=== PATIENT | male | born 1945 | race Caucasian/White ===

== ENCOUNTER 2017-08-10 19:32 | Inpatient (IN) | payer MEDICARE ==
[2017-08-10 20:26] LABS: #Basophils 0.1 thou/uL (0.0-0.2); #Eosinphils 0.1 thou/uL (0.0-0.7); #Lymphocytes 0.8 thou/uL (1.20-3.40); #Monocytes 0.9 thou/uL (0.11-0.59); #Neutrophils 9.7 thou/uL (1.40-6.50); %Basophils 0.6 % (0.0-1.0); %Eosinophils 0.9 % (0.0-10.0); %Lymphocytes 7.2 % (21.0-51.0); %Monocytes 7.7 % (0.0-10.0); %Neutrophils 83.7 % (42.0-75.0); Hemoglobin 13.3 g/dL (14.0-18.0); Mean Corpuscular HGB CONC 34.6 g/dL (32.0-36.0); Mean Corpuscular Hemoglobin 33.7 pg (27.0-31.0); Mean Corpuscular Volume 97.3 fl (80.0-94.0); Platelet Count 172 thou/uL (130-400); RBC Distribution Width 12.1 % (11.5-14.5); Red Blood Cell (RBC) Count 3.95 mill/uL (4.70-6.10); White Blood Cell (WBC) Count 11.6 thou/uL (4.8-10.8)
[2017-08-10 20:28] LABS: Bilirubin Small (Negative); Blood, Urine Trace (Negative); Clarity Slightly Cloudy (Clear); Glucose, Urine (Dipstick) Negative (Negative); Leukocyte Negative (Negative); Nitrite Negative (Negative); Protein, Urine (Dipstick) 100 mg/dL (Neg-Trace); Specific Gravity, Urine 1.025 (1.005-1.030); Urobilinogen 0.2 mg/dL (0.2-1.0); pH, Urine 5.5 (5.0-9.0)
[2017-08-10 20:31] LABS: RBC/HPF 0-3 HPF (0-3); Squamous Epithelial 0-3 HPF (0-3); WBC/HPF 0-3 HPF (0-3)
[2017-08-10 20:43] LABS: ALT (SGPT) 28 U/L (8-55); AST (SGOT) 31 U/L (5-34); Albumin 3.8 g/dL (3.4-4.8); Alkaline Phosphatase 84 U/L (40-150); Anion Gap 14 mmol/L (10-20); BUN (Urea Nitrogen) 31 mg/dL (8.4-25.7); Bilirubin, Total 0.6 mg/dL (0.2-1.2); Calc. Creatinine Clearance 0 mL/min (70-130); Calcium 9.1 mg/dL (7.8-10.44); Carbon Dioxide 18 mmol/L (23-31); Chloride 108 mmol/L (98-107); Estimated GFR-MDRD 48; Globulin 3.8 g/dL (2.4-3.5); Glucose 114 mg/dL (83-110); Potassium 4.4 mmol/L (3.5-5.1); Protein, Total 7.6 g/dL (5.8-8.1); Sodium 136 mmol/L (136-145)
[2017-08-10 20:45] LABS: CKMB 0.7 ng/mL (0-6.6); Troponin I Less than 0.010 ng/mL (< 0.028)
--- NOTE | 2017-08-10 21:07 | RAD ---
CHEST TWO VIEWS: HISTORY: Cough. Dyspnea. COMPARISON: 07/20/2016 FINDINGS: Increased opacity in the lingula and left lower lobe. Stable cardiac silhouette. No pneumothorax or osseous abnormalities. No pleural effusion. IMPRESSION: Left lower lobe and lingular pneumonia. Continued surveillance is recommended. POS: PPP
[2017-08-10] MEDS ORDERED: Sodium Chloride 0.9% 100 ML ONE (21:30)
[2017-08-10] MEDS ORDERED: cefTRIAXone\\ROCEPHIN 2 GM VIAL ONE (21:30)
[2017-08-10] MEDS ORDERED: Acetaminophen 325 MG TAB PO PRN (22:34)
[2017-08-10] MEDS ORDERED: Ondansetron ODT 4 MG TAB SL PRN (22:34)
[2017-08-10] MEDS ORDERED: Ondansetron HCl/PF 4 MG/2 ML Vial IVP PRN (22:34)
[2017-08-10] MEDS ORDERED: Senokot 8.6 MG TAB PO PRN (23:38)
[2017-08-10] MEDS ORDERED: Guaifenesin DM 100-10/5 ML UDCUP PO PRN (23:38)
[2017-08-10] MEDS ORDERED: Bisacodyl 5 MG TAB PO PRN (23:38)
[2017-08-10] MEDS ORDERED: Bisacodyl 10 MG SUPP PR PRN (23:38)
[2017-08-10] MEDS ORDERED: PROVENTIL INHALER 6.7 G (200 INHALATIONS) INH SCH (23:45)
[2017-08-10 23:49] VITALS: BMI 33.9
[2017-08-10] MEDS ORDERED: Dextrose 5% in Water 1,000 ML IV PRN (23:50)
[2017-08-10] MEDS ORDERED: Dextrose 50% Abboject 50 ML SYRINGE SLOW IVP PRN (23:50)
[2017-08-10] MEDS ORDERED: HumaLOG 300 UNITS/3 ML VIAL SC PRN (23:50)
--- NOTE | 2017-08-11 00:14 | HP ---
PRIMARY CARE PHYSICIAN: Justen Salmeron M.D. [place] FACER: Jarret Morin M.D. CHIEF COMPLAINT: Fever. HISTORY OF PRESENT ILLNESS: This is a 72-year-old male with a known history of COPD, who presents with a chief complaint of fevers and chills over the last 2- 3 days, accompanied by a new cough that is grossly nonproductive. At the time of my evaluation, the patient has been transferred from [facility] to our inpatient floor. He reports feeling significantly improved and does not currently complain of any fever or chills. He still has an intermittent nonproductive cough. He denies any prior similar issues. Denies any known sick contacts. No recent changes to his home regimen. No recent smoke exposure either. REVIEW OF SYSTEMS: As per HPI. Constitutional: Subjective fevers and chills, no significant weight loss or gain in the last month. HEENT: No new headache, vision change, lightheadedness, or dizziness. Cardiovascular: No new chest pain, chest pressure, dyspnea with exertion, or easy fatigability. Respiratory : As per HPI, otherwise negative. Gastrointestinal: Denies any nausea or vomiting. Denies any recent issues with diarrhea or constipation. Reports a retained appetite. Genitourinary: Denies any dysuria or change in urinary quality, quantity, frequency, or odor. Musculoskeletal: Denies any recent new myalgias or arthralgias. He does have some chronic back pain that is intermittent. PAST MEDICAL HISTORY: As per above significant for, 1. COPD, prior tobacco use, but quit in 2006. 2. Hyperlipidemia. 3. Hypertension. 4. Prior history of prostate cancer, status post surgery. 5. Status post hernia repair. 6. Status post right ear surgery. HOME MEDICATIONS: As per EMR includes the following: Advair, Spiriva, atenolol , allopurinol, and vitamin D. ALLERGIES: No known drug allergies. FAMILY HISTORY: Denies any family history of lung cancer or recurrent pulmonary infections. SOCIAL HISTORY: The patient resides with his . Tobacco use as described above. Alcohol use, 5 drinks most days. Denies any illicit drug use. Denies any known history of withdrawal seizures or withdrawal in general. I discussed advanced care planning. The patient indicates his would be his medical decision maker if he is unable to make his own medical decisions. He wishes to be FULL CODE at this point in time. PHYSICAL EXAMINATION: GENERAL: The patient is awake, alert, appropriate, oriented x3, able to provide a reasonable history as described above. HEENT: Normocephalic and atraumatic. Moist mucous membranes, no posterior oropharyngeal erythema or exudate. Equal ocular motions are intact. CARDIOVASCULAR: S1, S2. No murmurs, rubs, or gallops. Pulses 2+ bilateral upper extremities. No pitting pedal edema. RESPIRATORY: Reasonable air movement. No wheezes, rales, or rhonchi. Diminished breath sounds throughout, but otherwise clear to auscultation. GASTROINTESTINAL: Positive bowel sounds. ABDOMEN: Soft, nontender to palpation. MUSCULOSKELETAL: Able to sit up in the bed without difficulty or assistance. LABORATORY DATA AND IMAGING: WBC 11.6, hemoglobin 13.3, hematocrit 38.5, platelets 172. Sodium 136, potassium 4.4, chloride 108, bicarbonate 18, BUN 31 , creatinine 1.43, glucose 114, lactic acid 0.1, calcium 9.1, total bilirubin 0.6, AST 31, ALT 28, alkaline phosphatase 87. Troponin less than 0.01. BNP natriuretic peptide 97.7, total protein 7.6, albumin 3.8. UA is significant for 100 protein, 15 of ketones, trace blood, small bilirubin. 08/10/2017, chest x-ray, impression: "Left lower lobe and lingular pneumonia. Continued surveillance is recommended." ASSESSMENT AND PLAN: A 72-year-old male presented with a chief complaint of fevers and chills. 1. Fevers and chills, likely related to systemic inflammatory response syndrome in the setting of pneumonia as noted on chest x-ray. The patient will be placed on empiric antibiotics for community-acquired pneumonia including ceftriaxone and azithromycin. This will be initially placed IV for the patient. Close monitoring as well. 2. History of chronic obstructive pulmonary disease without evidence of overt exacerbation. At this point in time, we will consult the patient's federal mediator. Supportive management including cough medications, antipyretics if needed, nebulizers if needed. Steroids oral, burst therapy x3 days for the patient with a sliding scale insulin if needed for medication-induced hyperglycemia. 3. Hypertension, stable. Continue home regimen. 4. Hyperlipidemia. Continue home regimen. Otherwise, stable. The patient is admitted on an inpatient basis. Thank you for asking me to care for the patient. Questions or concerns, contact me at [facility]. TE
[2017-08-11] MEDS: Ipratropium Bromide 2.5 ml Neb NEB SCH ×4 (01:00→19:12)
[2017-08-11] MEDS: Azithromycin 500 MG in Sodium Chloride 0.9% 250 ML 250 ML IVPB SCH (01:25)
[2017-08-11 04:51] LABS: Anion Gap 11 mmol/L (10-20); BUN (Urea Nitrogen) 29 mg/dL (8.4-25.7); Calc. Creatinine Clearance 66 mL/min (70-130); Calcium 8.9 mg/dL (7.8-10.44); Carbon Dioxide 19 mmol/L (23-31); Chloride 108 mmol/L (98-107); Estimated GFR-MDRD 53; Glucose 170 mg/dL (83-110); Potassium 4.8 mmol/L (3.5-5.1); Sodium 133 mmol/L (136-145)
[2017-08-11 04:58] LABS: #Lymphocytes 0.3 thou/uL (1.20-3.40); #Monocytes 0.1 thou/uL (0.11-0.59); #Neutrophils 9.4 thou/uL (1.40-6.50); %Eosinophils 0.1 % (0.0-10.0); %Lymphocytes 2.7 % (21.0-51.0); %Monocytes 1.2 % (0.0-10.0); Hemoglobin 12.6 g/dL (14.0-18.0); Mean Corpuscular HGB CONC 34.1 g/dL (32.0-36.0); Mean Corpuscular Hemoglobin 34.5 pg (27.0-31.0); Mean Platelet Volume 9.1 fL (7.4-10.4); Platelet Count 177 thou/uL (130-400); RBC Distribution Width 12.1 % (11.5-14.5); Red Blood Cell (RBC) Count 3.65 mill/uL (4.70-6.10); White Blood Cell (WBC) Count 9.8 thou/uL (4.8-10.8)
[2017-08-11] MEDS: Mometasone/Formoterol 120 PUFF INHALER INH SCH ×2 (06:29→19:15)
[2017-08-11] MEDS ORDERED: Sodium Chloride 0.65% Nasal 44 ML BOT EA NARE PRN (07:48)
[2017-08-11] MEDS ORDERED: HYDROcodone/Acetaminophen 5/325 mg Tablet PO PRN (07:48)
[2017-08-11] MEDS ORDERED: Eucerin (Mineral Oil/Petrolatum,White) 30 gm Jar TOP PRN (07:48)
[2017-08-11] MEDS ORDERED: Diabetic Tussin 200 MG/10 ML UDCUP PO PRN (07:48)
[2017-08-11] MEDS ORDERED: hydrALAZINE 20 MG/ML VIAL SLOW IVP PRN (07:48)
[2017-08-11] MEDS ORDERED: Chloraseptic Spray 180 ml Bottle PO PRN (07:48)
[2017-08-11] MEDS ORDERED: Artificial Tears 18 DROP/0.9 ML EA EYE PRN (07:48)
[2017-08-11] MEDS ORDERED: Mag-Al 1200 mg/1200 mg/30 ML UDCUP PO PRN (07:48)
[2017-08-11] MEDS ORDERED: Loratadine 10 MG TAB PO PRN (07:48)
[2017-08-11] MEDS ORDERED: Loperamide HCl 2 MG CAP PO PRN (07:48)
[2017-08-11] MEDS ORDERED: Milk Of Magnesia 30 ML UDCUP PO PRN (07:48)
[2017-08-11] MEDS ORDERED: Temazepam 15 MG CAP PO PRN (07:48)
[2017-08-11] MEDS: Tamsulosin HCl 0.4 MG CAP PO SCH (09:30)
[2017-08-11] MEDS: Atenolol 25 MG TAB PO SCH (09:31)
[2017-08-11] MEDS: Lisinopril 10 MG TAB PO SCH (09:31)
[2017-08-11] MEDS: predniSONE 20 MG TAB PO SCH (09:32)
[2017-08-11] MEDS: Colchicine 0.6 MG TAB PO SCH (09:33)
[2017-08-11] MEDS: Enoxaparin Sodium 30 MG/0.3 ML SYRINGE SC SCH (09:33)
[2017-08-11] MEDS: Saccharomyces boulardii 250 MG CAP PO SCH (10:03)
[2017-08-11] MEDS ORDERED: Albuterol Sulfate 2.5 mg/3 ml Neb NEB PRN (10:36)
--- NOTE | 2017-08-11 11:01 | PDOC.PN ---
- Subjective Encounter Start Date: 08/11/17 Encounter Start Time: 07:40 -: old records requested/rev Patient seen and examined for pneumonia. No new complaints. No overnight events - Objective Resuscitation Status: Resuscitation Status FULL:Full Resuscitation MAR Reviewed: Yes Vital Signs & Weight: Vital Signs (12 hours) Temp Pulse Resp BP BP Pulse Ox 08/11/17 09:31 73 08/11/17 07:36 97.4 F L 73 19 133/64 99 08/11/17 06:29 76 12 08/11/17 06:21 98 08/11/17 06:18 76 12 08/11/17 04:00 98.4 F 80 18 118/65 94 L 08/11/17 01:01 98 08/11/17 01:00 82 14 98 08/11/17 00:00 98.4 F 70 20 112/62 98 Weight Weight 206 lb I&O: 08/10/17 08/11/17 08/12/17 06:59 06:59 06:59 Intake Total 580 Output Total 600 Balance -20 Result Diagrams: 08/11/17 03:55 08/11/17 03:54 Additional Labs: Accuchecks 08/11/17 06:24 POC Glucose 162 H Radiology Reviewed by me: Yes EKG Reviewed by me: Yes (nsr) Phys Exam - Physical Examination Constitutional: NAD HEENT: PERRLA, moist MMs, sclera anicteric Neck: no JVD, supple Respiratory: no wheezing, no rales, no rhonchi Cardiovascular: RRR, no significant murmur, no rub Gastrointestinal: soft, non-tender, no distention, positive bowel sounds Musculoskeletal: no edema, pulses present Neurological: non-focal, normal sensation, moves all 4 limbs Psychiatric: normal affect, A&O x 3 Skin: no rash, normal turgor Dx/Plan (1) Acute kidney failure Status: Acute (2) Community acquired bacterial pneumonia Code(s): J15.9 - UNSPECIFIED BACTERIAL PNEUMONIA Status: Acute (3) Sepsis with acute organ dysfunction Code(s): A41.9 - SEPSIS, UNSPECIFIED ORGANISM; R65.20 - SEVERE SEPSIS WITHOUT SEPTIC SHOCK Status: Acute (4) BPH (benign prostatic hyperplasia) Code(s): N40.0 - BENIGN PROSTATIC HYPERPLASIA WITHOUT LOWER URINRY TRACT SYMP Status: Chronic (5) COPD (chronic obstructive pulmonary disease) Status: Chronic (6) Dyslipidemia Code(s): E78.5 - HYPERLIPIDEMIA, UNSPECIFIED Status: Chronic (7) GERD (gastroesophageal reflux disease) Code(s): K21.9 - GASTRO-ESOPHAGEAL REFLUX DISEASE WITHOUT ESOPHAGITIS Status: Chronic (8) Gout Code(s): M10.9 - GOUT, UNSPECIFIED Status: Chronic (9) Hypertension Code(s): I10 - ESSENTIAL (PRIMARY) HYPERTENSION Status: Chronic (10) Macrocytic anemia Code(s): D53.9 - NUTRITIONAL ANEMIA, UNSPECIFIED Status: Chronic (11) Obesity (BMI 30.0-34.9) Code(s): E66.9 - OBESITY, UNSPECIFIED Status: Chronic - Plan cont current plan of care, plan discussed w/ family, continue antibiotics * continue rocephin and azithromycin * pulmonary consulted * medication reviewed as below * symptomatic treatment. * overall stable Review of Systems - Review of Systems Eyes: negative: Pain, Vision Change, Conjunctivae Inflammation, Eyelid Inflammation, Redness, Other ENT: negative: Ear Pain, Ear Discharge, Nose Pain, Nose Discharge, Nose Congestion, Mouth Pain, Mouth Swelling, Throat Pain, Throat Swelling, Other Respiratory: negative: Cough, Dry, Shortness of Breath, Hemoptysis, SOB with Excertion, Pleuritic Pain, Sputum, Wheezing Cardiovascular: negative: chest pain, palpitations, orthopnea, paroxysmal nocturnal dyspnea, edema, light headedness, other Gastrointestinal: negative: Nausea, Vomiting, Abdominal Pain, Diarrhea, Constipation, Melena, Hematochezia, Other Genitourinary: negative: Dysuria, Frequency, Incontinence, Hematuria, Retention , Other Musculoskeletal: negative: Neck Pain, Shoulder Pain, Arm Pain, Back Pain, Hand Pain, Leg Pain, Foot Pain, Other Skin: negative: Rash, Lesions, Derek, Bruising, Other - Medications/Allergies Allergies/Adverse Reactions: Allergies Allergy/AdvReac Type Severity Reaction Status Date / Time No Known Allergies Allergy Verified 08/10/17 22:58 Medications: Current Medications Hydrocodone Bitart/Acetaminophen ([place] 5/325) 1 tab PO Q4H PRN PRN Reason: Moderate Pain (4-6) Al Hydroxide/Mg Hydroxide (Maalox) 15 ml PO Q4H PRN PRN Reason: Heartburn or Indigestion Albuterol Sulfate (Ventolin) 2.5 mg NEB [id number] PRN PRN Reason: Wheezing Albuterol/Ipratropium (Duoneb) 3 ml NEB Q4H PRN PRN Reason: SOB &/or Wheezing Allopurinol (Zyloprim) 300 mg PO HS [facility] Artificial Tears (Tears Naturale) 0 drop EA EYE PRN PRN PRN Reason: Dry Eyes Aspirin (Ecotrin) 81 mg PO HS [facility] Atenolol (Tenormin) 12.5 mg PO DAILY [facility] Last Admin: 08/11/17 09:31 Dose: 12.5 mg Bisacodyl (Dulcolax) 10 mg PO DAILYPRN PRN PRN Reason: Constipation Bisacodyl (Dulcolax) 10 mg UT Q24H PRN PRN Reason: Constipation Cholecalciferol (Vitamin D3) 3,000 units PO DAILY [facility] Last Admin: 08/11/17 09:32 Dose: 3,000 units Colchicine (Colcrys) 0.6 mg PO DAILY [facility] Last Admin: 08/11/17 09:33 Dose: 0.6 mg Dextrose/Water (Dextrose 50%) 25 gm SLOW IVP PRN PRN PRN Reason: Hypoglycemia Enoxaparin Sodium (Lovenox) 30 mg SC 0900 [facility] Last Admin: 08/11/17 09:33 Dose: 30 mg Glucagon (Glucagon) 1 mg IM PRN PRN PRN Reason: Hypoglycemia Guaifenesin (Robitussin Sf) 200 mg PO Q4H PRN PRN Reason: Cough Guaifenesin (Mucinex) 600 mg PO Q12HR [facility] Guaifenesin/Dextromethorphan (Robitussin Dm) 15 ml PO Q4H PRN PRN Reason: Cough Hydralazine HCl (Apresoline) 10 mg SLOW IVP Q4H PRN PRN Reason: Systolic BP > 180 Azithromycin 500 mg/ Sodium (Chloride) 250 mls @ 250 mls/hr IVPB 2359 [facility] Last Admin: 08/11/17 01:25 Dose: 250 mls Ceftriaxone Sodium 1 gm/ (Sodium Chloride) 100 mls @ 200 mls/hr IVPB 2100 [facility] Dextrose/Water (D5w) 1,000 mls @ 0 mls/hr IV .Q0M PRN; As Directed PRN Reason: Hypoglycemia Insulin Human Lispro (Humalog) 0 units SC .MODERATE SLIDING SC PRN PRN Reason: Moderate Correctional Scale Ipratropium [place] (Atrovent) 2.5 ml NEB [id number] [facility] Last Admin: 08/11/17 06:18 Dose: 2.5 ml Lisinopril (Zestril) 10 mg PO DAILY [facility] Last Admin: 08/11/17 09:31 Dose: 10 mg Loperamide HCl (Imodium) 2 mg PO PRN PRN PRN Reason: Diarrhea/Loose Stools Loratadine (Claritin) 10 mg PO DAILYPRN PRN PRN Reason: Sinus Symptoms Magnesium Hydroxide (Milk Of Magnesium) 30 ml PO DAILYPRN PRN PRN Reason: Constipation Mineral Oil/White Petrolatum (Eucerin Cream) 0 gm TOP BIDPRN PRN PRN Reason: Dry Skin Mometasone Furoate/Formoterol Fumar (Dulera 200 Mcg/5 Mcg Inhaler) 2 puff INH BID-RT [facility] Last Admin: 08/11/17 06:29 Dose: 2 puff Pantoprazole Sodium (Protonix) 40 mg PO DAILY [facility] Last Admin: 08/11/17 09:31 Dose: 40 mg Phenol (Chloraseptic [place] 180 Ml Bot) 0 ml PO PRN PRN PRN Reason: Sore Throat Prednisone (Prednisone) 40 mg PO QA-[facility] Stop: 08/14/17 08:01 Last Admin: 08/11/17 09:32 Dose: 40 mg Rosuvastatin Calcium (Crestor) 5 mg PO [facility] Saccharomyces Boulardii (Florastor) 250 mg PO DAILY [facility] Last Admin: 08/11/17 10:03 Dose: 250 mg Senna (Senokot) 2 tab PO HSPRN PRN PRN Reason: Constipation Sodium Chloride ([place] Nasal [place] 0.65%) 0 ml EA NARE QIDPRN PRN PRN Reason: Nasal Congestion Sodium Chloride (Flush - Normal Saline) 10 ml IVF Q12HR [facility] Last Admin: 08/11/17 09:34 Dose: 10 ml Sodium Chloride (Flush - Normal Saline) 10 ml IVF PRN PRN PRN Reason: Saline Flush Tamsulosin HCl (Flomax) 0.4 mg PO DAILY [facility] Last Admin: 08/11/17 09:30 Dose: 0.4 mg Temazepam (Restoril) 15 mg PO HSPRN PRN PRN Reason: Insomnia
[2017-08-11] MEDS: guaiFENesin ER 600 MG TAB PO SCH (20:54)
[2017-08-11] MEDS ORDERED: cefTRIAXone\\ROCEPHIN 1 GM in Sodium Chloride 0.9% 100 ML IVPB SCH (21:00)
[2017-08-11] MEDS ORDERED: Rosuvastatin 5 MG TAB PO SCH (21:00)
[2017-08-11] MEDS ORDERED: Allopurinol 300 MG TAB PO SCH (21:00)
[2017-08-11] MEDS ORDERED: Aspirin 81 mg Enteric Coated Tablet PO SCH (21:00)
[2017-08-12] MEDS: Azithromycin 500 MG in Sodium Chloride 0.9% 250 ML 250 ML IVPB SCH (00:18)
[2017-08-12 00:59] LABS: Legionella Urinary Ag Negative (Negative); Strep pneumo Urine Ag NEGATIVE (NEGATIVE)
--- NOTE | 2017-08-12 01:00 | CON ---
DATE OF CONSULTATION: 08/11/2017 SERVICE: Pulmonary Medicine. REASON FOR CONSULTATION: Pneumonia. HISTORY OF PRESENT ILLNESS: The patient is a 72-year-old white male with past medical history significant for some COPD. He is not oxygen dependent. 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 He was in his usual state of health until . [place] He started feeling bad that evening. That being said, he went fishing on evening and Saturday morning. He felt lousy on Saturday with high fevers and chills. He had increasing cough which he typically does not have. When he came back on Saturday, he felt increasingly worse. He presented to the emergency department and was discovered to have a left lower lobe pneumonia. He was put on appropriate antibiotics, and has had a significant improvement in symptoms. He currently denies any fevers, chills, nausea, vomiting, shortness of breath, or chest discomfort. He is now coughing up brown sputum. He is feeling much better compared his presentation. He was having some high temperatures, shaking, night sweats. He is not currently having any of these things. PAST MEDICAL HISTORY: 1. COPD. 2. History of tobacco abuse. 3. Dyslipidemia. 4. Hypertension. 5. History of prostate cancer, status post surgery. PAST SURGICAL HISTORY: 1. Prostatectomy. 2. Herniorrhaphy. 3. Right ear surgery. ALLERGIES: No known drug allergies. MEDICATIONS: List of his inpatient medications were reviewed. Multiple small updates were made. FAMILY HISTORY: Noncontributory. SOCIAL HISTORY: The patient lives in this area with his . He has a greater than a [id number] history of smoking, but quit in 2006. He uses 5 alcoholic drinks on most days of the week. He denies any street drugs. 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 REVIEW OF SYSTEMS: General, head, ears, eyes, nose, throat, cardiovascular, respiratory, GI, , musculoskeletal, neurologic, and skin is negative except as mentioned in the HPI. PHYSICAL EXAMINATION: VITAL SIGNS: Afebrile, pulse 87, blood pressure 149/79, respirations 20, saturation 98% on room air. GENERAL: The patient awake, alert, in no apparent distress. LUNGS: Excellent air entry. There is no prolonged expiratory phase, wheezing, rhonchi, or crackles. HEART: Normal rate, regular. ABDOMEN: Soft, nontender, nondistended. Bowel sounds are positive. MUSCULOSKELETAL: No cyanosis or clubbing. No pitting in the bilateral lower extremities. NEUROLOGIC: Grossly nonfocal. LABORATORY DATA: WBC 9.8, hemoglobin 12.6, platelets 177,000. Creatinine 1.32 and down trending. Basic metabolic profile is otherwise unremarkable. Urinalysis is negative. Respiratory culture, urine culture negative to date. IMAGING: Chest x-ray demonstrates a left lower lobe infiltrate. There is an anterior cardiac space and flattening of the diaphragm, consistent with his known history of obstructive lung disease. ASSESSMENT: 1. Chronic obstructive pulmonary disease with acute exacerbation. 2. Community-acquired pneumonia. 3. Alcohol abuse. PLAN: The patient has cleared his fever profile. As such, we will convert him over to oral antibiotics. When his blood cultures are negative at 48 hours, he can be considered for transition out of the hospital. Pulmonary Critical Care will continue to follow. He will require a 5-7 day course of antibiotic therapy. He will need to follow up with Dr. Morin in the outpatient setting with a preclinic chest x-ray in roughly 6 weeks. 70 minutes have been devoted to this patient in various activities. I personally reviewed all imaging studies and laboratory data noted within this document. For fifty percent of this time, I was interacting with the patient at the bedside or coordinating care with the care team. For the remainder of the time I was immediately available to the patient in the hospital unit. TE
[2017-08-12] MEDS: Ipratropium Bromide 2.5 ml Neb NEB SCH ×3 (01:13→12:49)
[2017-08-12 05:23] LABS: #Lymphocytes 0.7 thou/uL (1.20-3.40); #Monocytes 0.7 thou/uL (0.11-0.59); #Neutrophils 11.6 thou/uL (1.40-6.50); %Basophils 0.1 % (0.0-1.0); %Eosinophils 0.1 % (0.0-10.0); %Lymphocytes 5.1 % (21.0-51.0); %Monocytes 5.5 % (0.0-10.0); %Neutrophils 89.2 % (42.0-75.0); Hemoglobin 12.2 g/dL (14.0-18.0); Mean Corpuscular HGB CONC 33.4 g/dL (32.0-36.0); Mean Corpuscular Hemoglobin 33.5 pg (27.0-31.0); Mean Platelet Volume 9.3 fL (7.4-10.4); Platelet Count 219 thou/uL (130-400); RBC Distribution Width 12.1 % (11.5-14.5); Red Blood Cell (RBC) Count 3.64 mill/uL (4.70-6.10)
[2017-08-12 05:46] LABS: Anion Gap 11 mmol/L (10-20); BUN (Urea Nitrogen) 36 mg/dL (8.4-25.7); Calc. Creatinine Clearance 69 mL/min (70-130); Carbon Dioxide 20 mmol/L (23-31); Chloride 109 mmol/L (98-107); Estimated GFR-MDRD 56; Glucose 124 mg/dL (83-110); Potassium 4.7 mmol/L (3.5-5.1); Sodium 135 mmol/L (136-145)
[2017-08-12] MEDS: Mometasone/Formoterol 120 PUFF INHALER INH SCH (06:11)
[2017-08-12] MEDS: Lisinopril 10 MG TAB PO SCH (09:25)
[2017-08-12] MEDS: predniSONE 20 MG TAB PO SCH (09:25)
[2017-08-12] MEDS: Saccharomyces boulardii 250 MG CAP PO SCH (09:25)
[2017-08-12] MEDS: Tamsulosin HCl 0.4 MG CAP PO SCH (09:26)
[2017-08-12] MEDS: Colchicine 0.6 MG TAB PO SCH (09:26)
[2017-08-12] MEDS: guaiFENesin ER 600 MG TAB PO SCH (09:26)
[2017-08-12] MEDS: Atenolol 25 MG TAB PO SCH (09:26)
[2017-08-12] MEDS: Enoxaparin Sodium 30 MG/0.3 ML SYRINGE SC SCH (09:28)
--- NOTE | 2017-08-12 09:57 | PDOC.PN ---
- Subjective Encounter Start Date: 08/12/17 Encounter Start Time: 07:50 Patient seen and examined for pneumonia. No new complaints. No overnight events - Objective Resuscitation Status: Resuscitation Status FULL:Full Resuscitation MAR Reviewed: Yes Vital Signs & Weight: Vital Signs (12 hours) Temp Pulse Resp BP Pulse Ox 08/12/17 07:44 97.6 F 79 18 96 08/12/17 07:16 97.6 F 79 18 144/81 H 97 08/12/17 06:11 84 12 08/12/17 06:06 91 L 08/12/17 06:03 84 16 08/12/17 03:04 98.0 F 73 17 157/81 H 92 L 08/12/17 01:13 81 14 93 L 08/12/17 00:00 97.9 F 78 15 165/84 H 94 L Weight Weight 206 lb I&O: 08/11/17 08/12/17 08/13/17 06:59 06:59 06:59 Intake Total 580 1550 Output Total 600 1100 Balance -20 450 Result Diagrams: 08/12/17 03:45 08/12/17 03:45 Additional Labs: Accuchecks 08/12/17 08/11/17 08/11/17 06:38 20:44 16:43 POC Glucose 137 H 161 H 155 H 08/11/17 11:41 POC Glucose 183 H EKG Reviewed by me: Yes (nsr) Phys Exam - Physical Examination Constitutional: NAD HEENT: PERRLA, moist MMs, sclera anicteric Neck: no nodes, no JVD, supple Respiratory: no wheezing, no rales, no rhonchi Cardiovascular: RRR, no significant murmur, no rub Gastrointestinal: soft, non-tender, no distention, positive bowel sounds Musculoskeletal: no edema, pulses present Neurological: non-focal, normal sensation, moves all 4 limbs Psychiatric: normal affect, A&O x 3 Skin: no rash, normal turgor Dx/Plan (1) Acute kidney failure Status: Resolved (2) Community acquired bacterial pneumonia Code(s): J15.9 - UNSPECIFIED BACTERIAL PNEUMONIA Status: Acute (3) Sepsis with acute organ dysfunction Code(s): A41.9 - SEPSIS, UNSPECIFIED ORGANISM; R65.20 - SEVERE SEPSIS WITHOUT SEPTIC SHOCK Status: Acute (4) BPH (benign prostatic hyperplasia) Code(s): N40.0 - BENIGN PROSTATIC HYPERPLASIA WITHOUT LOWER URINRY TRACT SYMP Status: Chronic (5) COPD (chronic obstructive pulmonary disease) Status: Chronic (6) Dyslipidemia Code(s): E78.5 - HYPERLIPIDEMIA, UNSPECIFIED Status: Chronic (7) GERD (gastroesophageal reflux disease) Code(s): K21.9 - GASTRO-ESOPHAGEAL REFLUX DISEASE WITHOUT ESOPHAGITIS Status: Chronic (8) Gout Code(s): M10.9 - GOUT, UNSPECIFIED Status: Chronic (9) Hypertension Code(s): I10 - ESSENTIAL (PRIMARY) HYPERTENSION Status: Chronic (10) Macrocytic anemia Code(s): D53.9 - NUTRITIONAL ANEMIA, UNSPECIFIED Status: Chronic (11) Obesity (BMI 30.0-34.9) Code(s): E66.9 - OBESITY, UNSPECIFIED Status: Chronic - Plan cont current plan of care, continue antibiotics * medication reviewed as below * symptomatic treatment * omnicef on discharge * mucinex and prednisone on discharge * pulmonary following * discharge when pulmonary OK. Review of Systems - Review of Systems Eyes: negative: Pain, Vision Change, Conjunctivae Inflammation, Eyelid Inflammation, Redness, Other ENT: negative: Ear Pain, Ear Discharge, Nose Pain, Nose Discharge, Nose Congestion, Mouth Pain, Mouth Swelling, Throat Pain, Throat Swelling, Other Respiratory: Cough. negative: Dry, Shortness of Breath, Hemoptysis, SOB with Excertion, Pleuritic Pain, Sputum, Wheezing Cardiovascular: negative: chest pain, palpitations, orthopnea, paroxysmal nocturnal dyspnea, edema, light headedness, other Gastrointestinal: negative: Nausea, Vomiting, Abdominal Pain, Diarrhea, Constipation, Melena, Hematochezia, Other Genitourinary: negative: Dysuria, Frequency, Incontinence, Hematuria, Retention , Other Musculoskeletal: negative: Neck Pain, Shoulder Pain, Arm Pain, Back Pain, Hand Pain, Leg Pain, Foot Pain, Other Skin: negative: Rash, Lesions, Derek, Bruising, Other - Medications/Allergies Allergies/Adverse Reactions: Allergies Allergy/AdvReac Type Severity Reaction Status Date / Time No Known Allergies Allergy Verified 08/10/17 22:58 Medications: Current Medications Hydrocodone Bitart/Acetaminophen ([place] 5/325) 1 tab PO Q4H PRN PRN Reason: Moderate Pain (4-6) Al Hydroxide/Mg Hydroxide (Maalox) 15 ml PO Q4H PRN PRN Reason: Heartburn or Indigestion Albuterol Sulfate (Ventolin) 2.5 mg NEB [id number] PRN PRN Reason: Wheezing Albuterol/Ipratropium (Duoneb) 3 ml NEB Q4H PRN PRN Reason: SOB &/or Wheezing Allopurinol (Zyloprim) 300 mg PO HS [facility] Last Admin: 08/11/17 20:54 Dose: 300 mg Aspirin (Ecotrin) 81 mg PO HS [facility] Last Admin: 08/11/17 20:54 Dose: 81 mg Atenolol (Tenormin) 12.5 mg PO DAILY [facility] Last Admin: 08/12/17 09:26 Dose: 12.5 mg Bisacodyl (Dulcolax) 10 mg PO DAILYPRN PRN PRN Reason: Constipation Bisacodyl (Dulcolax) 10 mg ND Q24H PRN PRN Reason: Constipation Cholecalciferol (Vitamin D3) 3,000 units PO DAILY [facility] Last Admin: 08/12/17 09:26 Dose: 3,000 units Colchicine (Colcrys) 0.6 mg PO DAILY [facility] Last Admin: 08/12/17 09:26 Dose: 0.6 mg Dextrose/Water (Dextrose 50%) 25 gm SLOW IVP PRN PRN PRN Reason: Hypoglycemia Enoxaparin Sodium (Lovenox) 30 mg SC 0900 [facility] Last Admin: 08/12/17 09:28 Dose: 30 mg Glucagon (Glucagon) 1 mg IM PRN PRN PRN Reason: Hypoglycemia Guaifenesin (Robitussin Sf) 200 mg PO Q4H PRN PRN Reason: Cough Guaifenesin (Mucinex) 600 mg PO Q12HR [facility] Last Admin: 08/12/17 09:26 Dose: 600 mg Hydralazine HCl (Apresoline) 10 mg SLOW IVP Q4H PRN PRN Reason: Systolic BP > 180 Azithromycin 500 mg/ Sodium (Chloride) 250 mls @ 250 mls/hr IVPB 2359 [facility] Last Admin: 08/12/17 00:18 Dose: 250 mls Ceftriaxone Sodium 1 gm/ (Sodium Chloride) 100 mls @ 200 mls/hr IVPB 2100 [facility] Last Admin: 08/11/17 20:54 Dose: 100 mls Dextrose/Water (D5w) 1,000 mls @ 0 mls/hr IV .Q0M PRN; As Directed PRN Reason: Hypoglycemia Insulin Human Lispro (Humalog) 0 units SC .MODERATE SLIDING SC PRN PRN Reason: Moderate Correctional Scale Ipratropium [place] (Atrovent) 2.5 ml NEB [id number] [facility] Last Admin: 08/12/17 06:03 Dose: 2.5 ml Lisinopril (Zestril) 10 mg PO DAILY [facility] Last Admin: 08/12/17 09:25 Dose: 10 mg Loperamide HCl (Imodium) 2 mg PO PRN PRN PRN Reason: Diarrhea/Loose Stools Loratadine (Claritin) 10 mg PO DAILYPRN PRN PRN Reason: Sinus Symptoms Magnesium Hydroxide (Milk Of Magnesium) 30 ml PO DAILYPRN PRN PRN Reason: Constipation Mineral Oil/White Petrolatum (Eucerin Cream) 0 gm TOP BIDPRN PRN PRN Reason: Dry Skin Mometasone Furoate/Formoterol Fumar (Dulera 200 Mcg/5 Mcg Inhaler) 2 puff INH BID-RT [facility] Last Admin: 08/12/17 06:11 Dose: 2 puff Pantoprazole Sodium (Protonix) 40 mg PO DAILY [facility] Last Admin: 08/12/17 09:26 Dose: 40 mg Phenol (Chloraseptic [place] 180 Ml Bot) 0 ml PO PRN PRN PRN Reason: Sore Throat Prednisone (Prednisone) 40 mg PO QAM-[facility] Stop: 08/14/17 08:01 Last Admin: 08/12/17 09:25 Dose: 40 mg Rosuvastatin Calcium (Crestor) 5 mg PO HS [facility] Last Admin: 08/11/17 20:54 Dose: 5 mg Saccharomyces Boulardii (Florastor) 250 mg PO DAILY [facility] Last Admin: 08/12/17 09:25 Dose: 250 mg Senna (Senokot) 2 tab PO HSPRN PRN PRN Reason: Constipation Sodium Chloride ([place] Nasal [place] 0.65%) 0 ml EA NARE QIDPRN PRN PRN Reason: Nasal Congestion Sodium Chloride (Flush - Normal Saline) 10 ml IVF Q12HR [facility] Last Admin: 08/12/17 09:27 Dose: 10 ml Sodium Chloride (Flush - Normal Saline) 10 ml IVF PRN PRN PRN Reason: Saline Flush Tamsulosin HCl (Flomax) 0.4 mg PO DAILY [facility] Last Admin: 08/12/17 09:26 Dose: 0.4 mg Temazepam (Restoril) 15 mg PO HSPRN PRN PRN Reason: Insomnia
--- NOTE | 2017-08-12 10:55 | DIS ---
PRIMARY CARE PHYSICIAN: Dr. Justen Salmeron DATE OF ADMISSION: 08/10/2017 DATE OF DISCHARGE: 08/12/2017 DISCHARGE DISPOSITION: Home. PRIMARY DISCHARGE DIAGNOSES: 1. Community-acquired bacterial pneumonia. 2. Sepsis with acute organ dysfunction. 3. Acute kidney failure. SECONDARY DISCHARGE DIAGNOSES: Obesity with BMI 33, macrocytic anemia, hypertension, gout, gastroeso phageal reflux disease, COPD, benign enlargement of prostate. PRIMARY PROCEDURES/OPERATIONS: None. RADIOLOGICAL INVESTIGATION: Chest x-ray on admission showed left lower lobe and lingular pneumonia. SIGNIFICANT LABORATORY DATA: WBC 13.0, hemoglobin 12.2, platelet 219. Sodium 135, potassium 4.7, BU N 36, creatinine 1.25, calcium 9.0. LFT normal. Cardiac enzymes negative. BNP 97.7. Urinalysis un remarkable. Urine legionella antigen and Streptococcal pneumonia antigen negative. Culture negative . Urine culture negative. DISCHARGE MEDICATIONS: Omnicef 300 mg p.o. b.i.d. for 7 days, prednisone 20 mg p.o. daily for 5 days , Mucinex 600 mg twice daily for 7 days, Florastor 250 mg p.o. daily for 7 days. Continue following medications: Ventolin inhaler as directed, allopurinol 300 mg p.o. at bedtime, as pirin 81 mg p.o. at bedtime, atenolol 12.5 mg p.o. daily, vitamin D3 3,000 unit p.o. daily, colchicin e 0.6 mg p.o. daily, Advair 1 inhalation b.i.d., Prevacid 30 mg p.o. daily, lisinopril 10 mg p.o. kendall ly, Crestor 5 mg p.o. at bedtime, Flomax 0.4 mg p.o. daily, Spiriva 18 mcg inhalation daily. CONTRAINDICATIONS: None. CODE STATUS: FULL CODE. INPATIENT CONSULTANTS: Dr. Cole was consulted while in hospital. TEST RESULTS PENDING ON DISCHARGE: None. ALLERGIES: No known drug allergy. DISCHARGE PLAN: Post hospital, the patient will follow up with Dr. Morin in 2 weeks for repeat follow up chest x-ray. The patient will make appointment with primary care physician in 1 week. HOSPITAL COURSE: A 72-year-old male with the above-mentioned medical problems who was admitted by Dr Ovi Laurent. Please see her H&P for further details. The patient was admitted for cough, shortness of br eath, and fever. In the emergency room, he had chest x-ray which showed left lower lobe and lingular pneumonia. The patient was admitted to telemetry floor. He was treated with Rocephin and azithromy shamika. Pulmonary team was consulted. The patient had dramatic improvement with IV antibiotic therapy. He was also given prednisone and that is why next day, his WBC count was elevated. His culture re mained negative. He was clinically dehydrated when he came to emergency room, but his renal function improved with IV fluid. He was meeting sepsis criteria with acute organ dysfunction that is also re solved. At this point, the patient is on room air. He is ambulatory, tolerating p.o. well. He expr essed his wish to go home. As long as Dr. Cole sees this patient and if he clears him for discharge, then we will consider di scharging him later on today. All new medication prescriptions will be sent to his pharmacy. The patient is seen and examined at bedside today. Please see my progress note from today for furthe r details.
[2017-08-12 11:57] VITALS: BP 158/87; TEMP 98.9
--- NOTE | 2017-08-12 12:22 | PRG ---
DATE OF SERVICE: 08/12/2017 SUBJECTIVE: Mr. Jose Luis Chiu has no complaints. He is on room air. He is in no distress. He sti ll has cough as expected and says he feels great. OBJECTIVE: VITAL SIGNS: His blood pressure is 144/81, oximetry is 97, respiratory rate 18, heart rate 79. He i s afebrile. LUNGS: He has crackles at his left base. HEART: Regular rhythm. IMPRESSION: 1. Chronic obstructive pulmonary disease exacerbation. 2. Pneumonia. It is clinically significantly improved. I think it is reasonable to discharge him f or close outpatient follow up with Dr. Morin. He should probably have another week of antibiotics and a tapering dose of prednisone. He was not wheezing when I examined him.
== END 2017-08-12 15:54 | disposition home or self-care (01) | DRG 871 ==
LOC: SCSER 19:32 → 2NO 21:09
PROVIDERS: ADMIT Internal Medicine; ATTEND Internal Medicine
DX: A41.9 Sepsis, unspecified organism (principal); J15.9 Unspecified bacterial pneumonia; J44.0 Chronic obstructive pulmonary disease with (acute) lower respiratory infection; N17.9 Acute kidney failure, unspecified; J44.1 Chronic obstructive pulmonary disease with (acute) exacerbation; R65.20 Severe sepsis without septic shock; Z87.891 Personal history of nicotine dependence; E78.5 Hyperlipidemia, unspecified; I10 Essential (primary) hypertension; Z85.46 Personal history of malignant neoplasm of prostate; E66.9 Obesity, unspecified; Z68.33 Body mass index [BMI] 33.0-33.9, adult; D53.9 Nutritional anemia, unspecified; K21.9 Gastro-esophageal reflux disease without esophagitis; N40.0 Benign prostatic hyperplasia without lower urinary tract symptoms; M10.9 Gout, unspecified; E86.0 Dehydration
CPT/HCPCS: 36415; 36416; 71046; 80048; 80053; 81003; 81015; 82553; 83605; 83880; 84484; 85025; 87040; 87070; 87086; 87205; 87899; 93005; 94640; 94664; 94760; 96361; 96365; 96375; A4216; J0456; J0696; J1650; J7050; J7506; J7620; J7644

== ENCOUNTER 2017-08-15 11:03 | Outpatient (CLI) | payer MEDICARE ==
--- NOTE | 2017-08-15 12:27 | RAD ---
CHEST 2 VIEWS: Date: 08/15/17 HISTORY: Follow-up pneumonia. COMPARISON: 08/10/17. FINDINGS: Heart size within normal limits. The lingular infiltrate shows improvement as compared to the prior e xamination. IMPRESSION: Improving left basilar lung changes which appear to represent a resolving lingular infiltrate. POS: [facility]
== END 2017-08-15 11:04 | disposition home or self-care (01) ==
LOC: RAD 11:03
PROVIDERS: ATTEND Internal Medicine Pulmonary Disease
DX: R06.00 Dyspnea, unspecified (principal)
CPT/HCPCS: 71046

== ENCOUNTER 2018-03-25 06:25 | Inpatient (IN) | payer MEDICARE ==
[2018-03-25] MEDS ORDERED: methylPREDNISolone Sod Succ/PF 125 MG/2 ML VIAL ONE ×2 (06:53→17:07)
[2018-03-25] MEDS ORDERED: Water For Inject, Bacteriostat 30 ML ONE ×2 (06:53→17:08)
[2018-03-25 07:06] LABS: #Basophils 0.1 thou/uL (0.0-0.2); #Lymphocytes 0.9 thou/uL (1.20-3.40); #Monocytes 0.7 thou/uL (0.11-0.59); #Neutrophils 13.6 thou/uL (1.40-6.50); %Basophils 0.6 % (0.0-1.0); %Eosinophils 0.1 % (0.0-10.0); %Lymphocytes 6.1 % (21.0-51.0); %Monocytes 4.8 % (0.0-10.0); %Neutrophils 88.4 % (42.0-75.0); Hemoglobin 13.2 g/dL (14.0-18.0); Mean Corpuscular HGB CONC 34.3 g/dL (32.0-36.0); Mean Corpuscular Hemoglobin 32.9 pg (27.0-31.0); Mean Corpuscular Volume 95.9 fL (78.0-98.0); Mean Platelet Volume 7.8 fL (7.4-10.4); Platelet Count 247 thou/uL (130-400); RBC Distribution Width 11.9 % (11.5-14.5); Red Blood Cell (RBC) Count 4.03 mill/uL (4.70-6.10); White Blood Cell (WBC) Count 15.4 thou/uL (4.8-10.8)
[2018-03-25 07:23] LABS: ALT (SGPT) 36 U/L (8-55); AST (SGOT) 40 U/L (5-34); Albumin 3.5 g/dL (3.4-4.8); Alkaline Phosphatase 109 U/L (40-150); Anion Gap 12 mmol/L (10-20); BUN (Urea Nitrogen) 23 mg/dL (8.4-25.7); Bilirubin, Total 0.3 mg/dL (0.2-1.2); CK (CPK) 58 U/L (30-200); Calc. Creatinine Clearance 0 mL/min (70-130); Calcium 8.6 mg/dL (7.8-10.44); Carbon Dioxide 20 mmol/L (23-31); Chloride 106 mmol/L (98-107); Estimated GFR-MDRD 63; Globulin 3.9 g/dL (2.4-3.5); Glucose 115 mg/dL (83-110); Potassium 4.4 mmol/L (3.5-5.1); Protein, Total 7.4 g/dL (5.8-8.1); Sodium 134 mmol/L (136-145)
[2018-03-25 07:24] LABS: CKMB 0.6 ng/mL (0-6.6)
[2018-03-25] MEDS ORDERED: Azithromycin 500 MG VIAL ONE (07:53)
[2018-03-25] MEDS ORDERED: cefTRIAXone\\ROCEPHIN 1 GM VIAL ONE (07:53)
[2018-03-25] MEDS ORDERED: Magnesium Sulfate 2 GM/NS 0.9% 50 ML BAG ONE (07:53)
--- NOTE | 2018-03-25 08:05 | RAD ---
TWO VIEWS CHEST: Date: 03-25-18 Comparison: 09-20-17 History: Cough with chills. FINDINGS: No pneumothorax is seen. Increased linear interstitial density noted throughout both lungs suggesting underlying emphysematous change. There is linear interstitial density in the mid right lung zone/right lung base, new. Lungs are hyper inflated on the lateral examination. No focal consolidation. IMPRESSION: Interstitial prominence with pulmonary hyperinflation suggesting COPD in the proper clinical setting. Superimposed asymmetric increased linear interstitial density noted in mid right lung zone and right lung base suspicious for right basilar pneumonia. Recommend follow up imaging following treatment to document resolution. POS: [facility]
[2018-03-25] MEDS ORDERED: Ondansetron PF 4 MG/2 ML Vial IVP PRN ×2 (18:27→20:04)
[2018-03-25] MEDS ORDERED: Acetaminophen 325 MG TAB PO PRN ×2 (18:27→20:04)
[2018-03-25] MEDS ORDERED: Ondansetron ODT 4 MG TAB SL PRN (18:27)
[2018-03-25] MEDS ORDERED: Albuterol Sulfate 2.5 mg/3 ml Neb NEB PRN (20:04)
[2018-03-25] MEDS ORDERED: Acetaminophen 650 MG Suppository PR PRN (20:04)
[2018-03-25] MEDS ORDERED: Senokot S 8.6-50 MG TAB PO PRN (20:04)
[2018-03-25] MEDS ORDERED: Ondansetron ODT 4 MG TAB PO PRN (20:04)
[2018-03-25 20:17] VITALS: BMI 32.1
[2018-03-25] MEDS ORDERED: Famotidine 20 MG TAB PO SCH (21:00)
[2018-03-25] MEDS: Allopurinol 300 MG TAB PO SCH (21:00)
[2018-03-25] MEDS: Rosuvastatin 5 MG TAB PO SCH (21:00)
[2018-03-25] MEDS: Aspirin 81 mg Enteric Coated Tablet PO SCH (21:00)
[2018-03-26] MEDS: Ipratropium Bromide 2.5 ml Neb NEB SCH ×3 (00:22→14:35)
--- NOTE | 2018-03-26 02:03 | HP ---
PRIMARY CARE PHYSICIAN: Justen Salmeron MD CHIEF COMPLAINT: Shortness of breath and cough. HISTORY OF PRESENT ILLNESS: This is a 72-year-old white male with a known history of COPD, not on home oxygen. He developed cough, fevers, and chills starting last week. These symptoms came and went and got a little better over the weekend, but then on yesterday they got significantly worse. He went to his primary care doctor's office and was given a prescription for amoxicillin. He took it last night, but got worse last night with increasing chills and some shortness of breath especially with ambulation, so today he went into the emergency room at the insistence of his . There, he was found to be hypoxic in the 80s after ambulation, up to the low 90s if he remained at rest. Chest x-ray showed pneumonia, also sound to have an elevated white blood cell count, so he is being admitted for pneumonia and COPD exacerbation. PAST MEDICAL HISTORY: 1. COPD. 2. Hyperlipidemia. 3. Hypertension. 4. Gout. 5. Previous prostate cancer, status post resection. PAST SURGICAL HISTORY: 1. Prostate resection. 2. Hernia repair. 3. Right ear surgery. SOCIAL HISTORY: The patient lives with his . He used to smoke heavily until about 10 to [address] Morin established with him and told him that he would within 5 years if he did not stop, so he stopped smoking and started exercising daily. He drinks at least 2 glasses of wine daily. No illicit drug use. FAMILY HISTORY: Mom had cancer of the jaw. Dad of an aortic aneurysm rupture. ALLERGIES: NO KNOWN DRUG ALLERGIES. CURRENT MEDICATIONS: 1. Albuterol inhaler as needed. 2. Advair 250 twice a day. 3. Rosuvastatin 5 mg daily. 4. Tamsulosin 0.4 mg daily. 5. Lisinopril 10 mg daily. 6. Prevacid 30 mg daily. 7. Colchicine 0.6 mg daily. 8. Atenolol 12.5 mg daily. 9. Aspirin 81 mg daily. 10. Allopurinol 300 mg at night. REVIEW OF SYSTEMS: CONSTITUTIONAL: See HPI. EYES: No double vision or new blurring of vision. ENT: He has not had a lot of congestion or drainage. No sore throat. CARDIOVASCULAR: No chest pain. No palpitations or racing heart. PULMONARY: See HPI. GASTROINTESTINAL: No abdominal pain. No nausea or vomiting. No diarrhea or constipation. He did have a little bit of diarrhea last week, that has resolved. GENITOURINARY: No dysuria or hematuria. MUSCULOSKELETAL: No muscle aches or joint pains. SKIN: He has a little dry patch on his left quiñones, but otherwise no rashes or skin changes. NEUROLOGIC: No numbness, tingling, or focal weakness. PHYSICAL EXAMINATION: VITAL SIGNS: Blood pressure 163/82, pulse 83, respirations 16, O2 saturation 93% on 2 L, temperature 97.4. He was tachycardic on his initial presentation to the emergency room of 103. His temperature never got up to 100 there. GENERAL: This is a well-developed, well-nourished white male, in no acute respiratory distress, on oxygen. HEENT: Pupils are equal, round, and reactive to light. Oropharynx clear without lesions, erythema, or exudate. NECK: Supple. No lymphadenopathy. No thyroid nodules or enlargement. No JVD. HEART: Regular rate and rhythm. No murmurs, rubs, or gallops. LUNGS: He has some tight breath sounds bilaterally with occasional wheezes. No rhonchi or other focal findings. ABDOMEN: Soft and nontender to palpation. Normoactive bowel sounds. No hepatosplenomegaly or other masses. EXTREMITIES: No clubbing, cyanosis, or edema. SKIN: He has a little dry patch on his left leg, but no significant rashes. NEUROLOGIC: Intact strength and reflexes in all extremities, and no facial droop. LABORATORY DATA: CBC with a white blood cell count of 15,000, 88% neutrophils. The remainder was unremarkable. Complete metabolic panel is notable for a sodium of 134, carbon dioxide of 20, glucose of 115, AST of 40. The remainder was normal. Troponin was negative. CK-MB was negative. Lactic acid was normal. Chest x-ray, I did review the chest x-ray along with the radiologist's report. It does show COPD changes, but also a superimposed asymmetric increased linear interstitial density in the right mid lung and lung base concerning for right basilar pneumonia. ASSESSMENT: 1. Acute bacterial pneumonia. The patient has been started on Rocephin and azithromycin. We will continue that here. 2. Acute exacerbation of chronic obstructive pulmonary disease with hypoxia. We will give the patient supplemental oxygen as needed. We will give him albuterol inhaler along with Spiriva and Advair in the hospital. I will also consult his mediation commissioner, Dr. Morin. 3. Hypertension. We will resume patient's home blood pressure medications. 4. Gout. We will resume patient's home medications. 5. Gastroesophageal reflux disease. We will resume patient's proton pump inhibitor. 6. Deep venous thrombosis prophylaxis. We will put the patient on Lovenox and sequential compression devices while in bed. CODE STATUS: I discussed this with the patient. He is a full code. Should he be incapacitated, his would be his medical decision maker, her name is Codie Chiu. Job ID: [id number]
[2018-03-26] MEDS ORDERED: Mometasone/Formoterol 120 PUFF INHALER INH SCH (06:30)
--- NOTE | 2018-03-26 07:45 | PDOC.PN ---
- Subjective Encounter Start Date: 03/26/18 Encounter Start Time: 10:15 Subjective: Patient feeling better today. Doesn't need Oxygen unless he gets up to -: ambulate. Cough improved. No fever. - Objective Resuscitation Status - Order Detail: 03/25/18 20:00 Resuscitation Status Routine Resuscitation Status: FULL: Full Resuscitation Discussed with: Sheryl GOLDMAN Reviewed: Yes Vital Signs & Weight: Vital Signs (12 hours) Temp Pulse Resp BP BP Pulse Ox 03/26/18 04:00 97.8 F 85 20 120/60 100 03/26/18 00:22 77 16 94 L 03/26/18 00:04 97.6 F 84 16 142/79 H 93 L 03/25/18 20:04 98.3 F 93 18 132/46 L 92 L Weight Weight 205 lb 0.478 oz Result Diagrams: 03/26/18 10:23 03/26/18 10:23 Phys Exam - Physical Examination Constitutional: NAD HEENT: moist MMs Respiratory: no wheezing, no rales, no rhonchi Cardiovascular: RRR, no significant murmur Gastrointestinal: soft, non-tender, positive bowel sounds Neurological: non-focal, moves all 4 limbs Psychiatric: normal affect, A&O x 3 Dx/Plan (1) Community acquired bacterial pneumonia Code(s): J15.9 - UNSPECIFIED BACTERIAL PNEUMONIA Status: Acute (2) COPD exacerbation Code(s): J44.1 - CHRONIC OBSTRUCTIVE PULMONARY DISEASE W (ACUTE) EXACERBATION Status: Acute Comment: Nebs, steroids, abx (3) Dyslipidemia Code(s): E78.5 - HYPERLIPIDEMIA, UNSPECIFIED Status: Chronic (4) GERD (gastroesophageal reflux disease) Code(s): K21.9 - GASTRO-ESOPHAGEAL REFLUX DISEASE WITHOUT ESOPHAGITIS Status: Chronic (5) Gout Code(s): M10.9 - GOUT, UNSPECIFIED Status: Chronic (6) Hypertension Code(s): I10 - ESSENTIAL (PRIMARY) HYPERTENSION Status: Chronic - Plan cont current plan of care, continue antibiotics, respiratory therapy, out of bed /ambulate, DVT proph w/lovenox, DVT proph w/SCDs * . - Discharge Day Encounter end time: 10:30
[2018-03-26] MEDS ORDERED: Azithromycin 500 MG in Sodium Chloride 0.9% 250 ML 250 ML IVPB SCH (08:00)
[2018-03-26] MEDS: cefTRIAXone\\ROCEPHIN 1 GM in Sodium Chloride 0.9% 100 ML IVPB SCH (08:14)
[2018-03-26] MEDS: Atenolol 25 MG TAB PO SCH (08:16)
[2018-03-26] MEDS: Colchicine 0.6 MG TAB PO SCH (08:16)
[2018-03-26] MEDS: Tamsulosin HCl 0.4 MG CAP PO SCH (08:19)
[2018-03-26] MEDS: Lisinopril 20 MG TAB PO SCH (08:19)
[2018-03-26] MEDS: Enoxaparin Sodium 40 MG/0.4 ML SYRINGE SC SCH (08:20)
--- NOTE | 2018-03-26 10:58 | CON ---
DATE OF CONSULTATION: HISTORY OF PRESENT ILLNESS: Jose Luis Chiu is a 72-year-old gentleman, well known to us. He has COPD presented with fevers, chills, sweats, and yellow sputum for the last 24 hours. X-ray shows a right-sided infiltrate. He had persistent fever and chills in spite of getting an antibiotic from his primary care physician. This morning, he said he is feeling somewhat better. Denies any hemoptysis. PAST MEDICAL HISTORY: History of hypertension, COPD, hyperlipidemia, arthritis, prostate cancer. PREVIOUS SURGERIES: Prostate, right ear. SOCIAL HISTORY: Alcohol, minimal. Tobacco, former smoker, quit smoking about 15 years ago. MEDICATIONS: His home medicine includes, 1. Spiriva inhaler. 2. Flomax 0.4. 3. Restoril 10. 4. Prevacid 30. 5. Advair Diskus 250 twice a day. 6. Tenormin 12.5. 7. Aspirin. 8. Allopurinol. 9. Albuterol inhaler. ALLERGIES: NONE. FAMILY HISTORY: Unremarkable. REVIEW OF SYSTEMS: Ten-point negative. PHYSICAL EXAMINATION: VITAL SIGNS: His sats are this morning 97 on 2 L, respiratory rate 20, temperature 97, and blood pressure 140/74. CHEST: Bilateral crackles, minimal wheezing. CARDIAC: Normal S1 and S2. No gallops. ABDOMEN: Soft without any masses. DIAGNOSTIC DATA: Chest x-ray shows a new right-sided infiltrate. LABORATORY DATA: [place] [address], hemoglobin and hematocrit 13 and 38, and platelet count is normal. His chemistry profile shows sodium 134, otherwise unremarkable. Liver function slightly elevated. AST is 40. IMPRESSION: Chronic obstructive pulmonary disease exacerbation, bronchitis, right chest pneumonia. PLAN: He is on steroids, neb treatments, antibiotics. We will follow. Consultation note, 70 minutes, 50% direct patient care. Job ID: [id number]
[2018-03-26 10:59] LABS: Hemoglobin 12.7 g/dL (14.0-18.0); Mean Platelet Volume 8.5 fL (7.4-10.4); Platelet Count 306 thou/uL (130-400); RBC Distribution Width 12.3 % (11.5-14.5); Red Blood Cell (RBC) Count 3.85 mill/uL (4.70-6.10); White Blood Cell (WBC) Count 21.8 thou/uL (4.8-10.8)
[2018-03-26 11:02] LABS: Anion Gap 9 mmol/L (10-20); BUN (Urea Nitrogen) 26 mg/dL (8.4-25.7); Calc. Creatinine Clearance 77 mL/min (70-130); Calcium 9.3 mg/dL (7.8-10.44); Carbon Dioxide 22 mmol/L (23-31); Chloride 108 mmol/L (98-107); Estimated GFR-MDRD 65; Glucose 188 mg/dL (83-110); Potassium 4.3 mmol/L (3.5-5.1); Sodium 135 mmol/L (136-145)
[2018-03-26 12:05] LABS: Band 31 % (5-11); Lymphocytes 5 % (21-51); MDiff Complete? YES; Monocytes 4 % (0-10); Myelocyte 1 % (0-0); Neutrophil 59 % (42-75); RBC Morphology Normal
[2018-03-26] MEDS: ADVAIR INH SCH (20:18)
[2018-03-26] MEDS: Aspirin 81 mg Enteric Coated Tablet PO SCH (20:19)
[2018-03-26] MEDS: Doxycycline 100 MG CAP PO SCH (20:19)
[2018-03-26] MEDS: Allopurinol 300 MG TAB PO SCH (20:19)
[2018-03-26] MEDS: Rosuvastatin 5 MG TAB PO SCH (20:20)
[2018-03-27] MEDS: ADVAIR INH SCH ×2 (05:45→21:42)
[2018-03-27] MEDS: SPIRIVA HANDIHALER INH SCH (08:30)
[2018-03-27] MEDS: cefTRIAXone\\ROCEPHIN 1 GM in Sodium Chloride 0.9% 100 ML IVPB SCH (08:50)
[2018-03-27] MEDS: Doxycycline 100 MG CAP PO SCH ×2 (08:51→21:43)
[2018-03-27] MEDS: Atenolol 25 MG TAB PO SCH (08:52)
[2018-03-27] MEDS: Lisinopril 20 MG TAB PO SCH (08:53)
[2018-03-27] MEDS: Colchicine 0.6 MG TAB PO SCH (08:53)
[2018-03-27] MEDS: Tamsulosin HCl 0.4 MG CAP PO SCH (08:54)
[2018-03-27] MEDS: Enoxaparin Sodium 40 MG/0.4 ML SYRINGE SC SCH (08:56)
--- NOTE | 2018-03-27 09:40 | PDOC.PN ---
- Subjective Encounter Start Date: 03/27/18 Encounter Start Time: 11:50 Subjective: Patient ambulating well, a bit COUCH if not on Oxygen. Almost back to -: baseline. - Objective Resuscitation Status - Order Detail: 03/25/18 20:00 Resuscitation Status Routine Resuscitation Status: FULL: Full Resuscitation Discussed with: Patient JONES Reviewed: Yes Vital Signs & Weight: Vital Signs (12 hours) Temp Pulse Resp BP BP Pulse Ox 03/27/18 08:53 162/73 H 03/27/18 08:52 71 162/73 H 03/27/18 08:10 97.9 F 71 20 162/73 H 100 03/27/18 04:00 97.6 F 77 18 150/76 H 92 L 03/27/18 00:00 97.5 F L 81 18 134/72 91 L Weight Weight 205 lb 0.478 oz I&O: 03/26/18 03/27/18 03/28/18 06:59 06:59 06:59 Intake Total 340 Balance 340 Result Diagrams: 03/26/18 10:23 03/26/18 10:23 Phys Exam - Physical Examination Constitutional: NAD HEENT: moist MMs Respiratory: no wheezing, no rhonchi occ rale Cardiovascular: RRR, no significant murmur Gastrointestinal: soft, non-tender, positive bowel sounds Neurological: non-focal, moves all 4 limbs Psychiatric: normal affect, A&O x 3 Dx/Plan (1) Community acquired bacterial pneumonia Code(s): J15.9 - UNSPECIFIED BACTERIAL PNEUMONIA Status: Acute (2) COPD exacerbation Code(s): J44.1 - CHRONIC OBSTRUCTIVE PULMONARY DISEASE W (ACUTE) EXACERBATION Status: Acute Comment: Nebs, steroids, abx (3) Dyslipidemia Code(s): E78.5 - HYPERLIPIDEMIA, UNSPECIFIED Status: Chronic (4) GERD (gastroesophageal reflux disease) Code(s): K21.9 - GASTRO-ESOPHAGEAL REFLUX DISEASE WITHOUT ESOPHAGITIS Status: Chronic (5) Gout Code(s): M10.9 - GOUT, UNSPECIFIED Status: Chronic (6) Hypertension Code(s): I10 - ESSENTIAL (PRIMARY) HYPERTENSION Status: Chronic - Plan cont current plan of care, continue antibiotics, respiratory therapy, out of bed /ambulate wean O2, markedly improved, plan to discharge home tomorrow * . - Discharge Day Encounter end time: 12:15 Pulmonology Consult: Meds - Medications MAR Reviewed: Yes Medications: Current Medications Acetaminophen (Tylenol) 650 mg PO Q4H PRN PRN Reason: Headache/Fever/Mild Pain (1-3) Acetaminophen (Tylenol) 650 mg MA Q4H PRN PRN Reason: Headache/Fever/Mild Pain (1-3) Albuterol Sulfate (Ventolin) 2.5 mg NEB [id number] PRN PRN Reason: Wheezing Allopurinol (Zyloprim) 300 mg PO HS [facility] Last Admin: 03/26/18 20:19 Dose: 300 mg Aspirin (Ecotrin) 81 mg PO HS [facility] Last Admin: 03/26/18 20:19 Dose: 81 mg Atenolol (Tenormin) 12.5 mg PO DAILY [facility] Last Admin: 03/27/18 08:52 Dose: 12.5 mg Colchicine (Colcrys) 0.6 mg PO DAILY [facility] Last Admin: 03/27/18 08:53 Dose: 0.6 mg Doxycycline Hyclate (Vibramycin) 100 mg PO BID [facility] Stop: 04/02/18 21:01 Last Admin: 03/27/18 08:51 Dose: 100 mg Enoxaparin Sodium (Lovenox) 40 mg SC 0900 [facility] Last Admin: 03/27/18 08:56 Dose: 40 mg Ceftriaxone Sodium 1 gm/ (Sodium Chloride) 100 mls @ 200 mls/hr IVPB 0900 [facility] Last Admin: 03/27/18 08:50 Dose: 100 mls Lisinopril (Zestril) 10 mg PO DAILY [facility] Last Admin: 03/27/18 08:53 Dose: 10 mg Methylprednisolone Sodium Succinate (Solu-Medrol) 40 mg IVP Q6HR [facility] Last Admin: 03/27/18 05:45 Dose: 40 mg Ondansetron HCl (Zofran Odt) 4 mg PO Q6H PRN PRN Reason: Nausea/Vomiting Ondansetron HCl (Zofran) 4 mg IVP Q6H PRN PRN Reason: Nausea/Vomiting Pantoprazole Sodium (Protonix) 40 mg PO DAILY [facility] Last Admin: 03/27/18 08:53 Dose: 40 mg Spiriva Handihaler 0 each INH DAILY [facility] Advair Diskus 250/50 (Inh) 0 each INH BID-RT [facility] Last Admin: 03/27/18 05:45 Dose: 1 each Rosuvastatin Calcium (Crestor) 5 mg PO HS [facility] Last Admin: 03/26/18 20:20 Dose: 5 mg Senna/Docusate Sodium (Senokot S) 2 tab PO BID PRN PRN Reason: Constipation Sodium Chloride (Flush - Normal Saline) 10 ml IVF Q12HR [facility] Last Admin: 03/27/18 08:54 Dose: 10 ml Sodium Chloride (Flush - Normal Saline) 10 ml IVF PRN PRN PRN Reason: Saline Flush Tamsulosin HCl (Flomax) 0.4 mg PO DAILY [facility] Last Admin: 03/27/18 08:54 Dose: 0.4 mg - Allergies Allergies/Adverse Reactions: Allergies Allergy/AdvReac Type Severity Reaction Status Date / Time No Known Allergies Allergy Verified 03/25/18 20:23
--- NOTE | 2018-03-27 10:15 | PRG ---
DATE OF SERVICE: 03/27/2018 SUBJECTIVE: This morning, he is awake, alert, responsive. He is doing better. OBJECTIVE: VITAL SIGNS: His temperature is 97, blood pressure 162/73, pulse 71, respiratory rate 20, and sats 100% on supplemental oxygen. CHEST: Decreased breath sounds. No wheezing. CARDIAC: Normal S1 and S2. No gallops. ABDOMEN: No masses. LABORATORY DATA: White count is 21,000 yesterday. Culture is so far negative. IMPRESSION: 1. Right-sided pneumonia. 2. Chronic obstructive pulmonary disease. PLAN: Switch over to p.o. prednisone, neb treatments, supportive care. If he is improved tomorrow, he could probably be discharged home on oral antibiotics. Job ID: [id number]
[2018-03-27] MEDS: Aspirin 81 mg Enteric Coated Tablet PO SCH (21:43)
[2018-03-27] MEDS: Rosuvastatin 5 MG TAB PO SCH (21:43)
[2018-03-27] MEDS: Allopurinol 300 MG TAB PO SCH (21:43)
[2018-03-28] MEDS: ADVAIR INH SCH (06:33)
[2018-03-28] MEDS ORDERED: predniSONE 20 MG TAB PO SCH (08:00)
[2018-03-28] MEDS: Colchicine 0.6 MG TAB PO SCH (09:30)
[2018-03-28] MEDS: Atenolol 25 MG TAB PO SCH (09:31)
[2018-03-28] MEDS: Lisinopril 20 MG TAB PO SCH (09:31)
[2018-03-28] MEDS: cefTRIAXone\\ROCEPHIN 1 GM in Sodium Chloride 0.9% 100 ML IVPB SCH (09:31)
[2018-03-28] MEDS: Tamsulosin HCl 0.4 MG CAP PO SCH (09:32)
[2018-03-28] MEDS: SPIRIVA HANDIHALER INH SCH (09:32)
[2018-03-28] MEDS: Enoxaparin Sodium 40 MG/0.4 ML SYRINGE SC SCH (09:33)
[2018-03-28] MEDS: Doxycycline 100 MG CAP PO SCH (09:33)
--- NOTE | 2018-03-28 11:26 | PRG ---
DATE OF SERVICE: 03/28/2018 SUBJECTIVE: The patient is doing better. OBJECTIVE: VITAL SIGNS: His temperature is 97, blood pressure is 159/78, pulse 76, saturations are 97% on room air. GENERAL: Sputum he is coughing is pale yellow. All cultures are so far negative. CHEST: Decreased breath sounds without any wheezing. CARDIAC: Normal S1 and S2. No gallops. ABDOMEN: No masses. IMPRESSION: 1. Chronic obstructive pulmonary disease exacerbation. 2. Right-sided pneumonia. PLAN: He could go home. Taper dose of prednisone. Doxycycline for another several days or a week. He has baseline home medication, Advair 250 once a day and Spiriva once a day. Job ID: [id number]
[2018-03-28 11:35] VITALS: BP 176/93; TEMP 97.4
--- NOTE | 2018-03-29 04:24 | DIS ---
DATE OF ADMISSION: 03/25/2018 DATE OF DISCHARGE: 03/28/2018 PRIMARY CARE PHYSICIAN: Justen Salmeron MD CHIEF COMPLAINT: Shortness of breath and cough. PRINCIPAL DIAGNOSIS ON ADMISSION: Acute bacterial pneumonia. DISCHARGE DIAGNOSES: 1. Acute bacterial pneumonia, present on admission. 2. Chronic obstructive pulmonary disease with acute exacerbation with hypoxia. 3. Essential hypertension. 4. Gout. 5. Gastroesophageal reflux disease. CONSULT DURING HOSPITAL STAY: Pulmonology, Dr. Morin. HOSPITAL COURSE: Mr. Chiu is a delightful 72-year-old gentleman with a history of COPD, not on home oxygen. He developed cough, fever, and chills during the week prior to admission, improved somewhat prior to admission, but then a day immediately prior to admission, significantly worsened. He was begun on amoxicillin from his primary care doctor's office. He noted worsening dyspnea, particularly with exertion, and proceeded to the emergency department. He was found to have hypoxemia with saturations in the 80s after ambulation, low 90s if he remained at rest. Chest x-ray showed evidence of right lower lobe pneumonia, and he was subsequently admitted to the hospital. Initial white blood cell count 15,000 and 88% neutrophils. Chest x-ray with increased linear interstitial disease in the right middle lung zone/lung base, concerning for right basilar pneumonia. The patient was placed on oxygen supplementation, antibiotic therapy, home Spiriva and Advair, steroids, as well as nebulizers. He was seen and evaluated by Dr. Morin, his animal maintenance supervisor. His condition has shown interval improvement, weaned off oxygen. Oxygen saturations are remaining greater than 90% with ambulation, and the patient is generally feeling improved. He will transition home on oral antibiotics and oral steroid taper, to follow up in the outpatient clinic with Dr. Morin in the next few weeks. At the time of my evaluation, Mr. Chiu is sitting up, speaking in full sentences. Breath sounds somewhat distant, right lower lobe with mild rhonchi, overall with decent aeration. Abdomen is soft and nontender. Heart is regular rate and rhythm. No significant lower extremity edema. He appears stable for transition to home. FOLLOWUP PLANS: ACTIVITY: As tolerated. REFERRALS: 1. Follow up with Dr. Morin in 2 to 4 weeks for posthospital followup. I discussed with Dr. Morin this morning, he concurs with discharge. 2. He will also follow up with Dr. Salmeron, his primary care physician, per routine. MEDICATIONS: 1. Doxycycline 100 mg p.o. b.i.d., x5 additional days. 2. Prednisone 10 mg tablet, taking 2 tablets p.o. x2 days and 1 tablet p.o. x3 days, then discontinue. 3. Ventolin nebulizers 2.5 mg q.4 hourly p.r.n. shortness of breath. 4. Allopurinol 300 mg p.o. at bedtime. 5. Aspirin 81 mg p.o. daily. 6. Atenolol 12.5 mg p.o. daily. 7. Colchicine 0.6 mg p.o. daily. 8. Prevacid 30 mg p.o. daily. 9. Lisinopril 10 mg p.o. daily. 10. Rosuvastatin 5 mg p.o. at bedtime. 11. Flomax 0.4 mg p.o. at bedtime. 12. Albuterol HFA 1 puff as directed q.4 hourly p.r.n. shortness of breath. 13. Advair 250/50 one puff b.i.d. 14. Guaifenesin extended release 600 mg p.o. b.i.d. 15. Spiriva 18 mcg inhaled daily. DIET: Heart healthy. TOTAL TIME SPENT: On discharge, 40 minutes. Job ID: [id number] MTDD
== END 2018-03-28 11:38 | disposition home or self-care (01) | DRG 190 ==
LOC: SCSER 06:25 → SCSEROBS 09:18 → T4-B 17:53
PROVIDERS: ADMIT Internal Medicine; ATTEND Internal Medicine
DX: J44.1 Chronic obstructive pulmonary disease with (acute) exacerbation (principal); J15.9 Unspecified bacterial pneumonia; J44.0 Chronic obstructive pulmonary disease with (acute) lower respiratory infection; R09.02 Hypoxemia; I10 Essential (primary) hypertension; M10.9 Gout, unspecified; K21.9 Gastro-esophageal reflux disease without esophagitis; E78.5 Hyperlipidemia, unspecified; F03.90 Unspecified dementia, unspecified severity, without behavioral disturbance, psychotic disturbance, mood disturbance, and anxiety; Z85.46 Personal history of malignant neoplasm of prostate; Z90.79 Acquired absence of other genital organ(s); Z98.890 Other specified postprocedural states; Z87.891 Personal history of nicotine dependence; Z79.82 Long term (current) use of aspirin; Z79.899 Other long term (current) drug therapy
CPT/HCPCS: 36415; 71046; 80048; 80053; 82550; 82553; 83605; 84484; 85025; 87070; 87205; 87804; 93005; 94640; 96365; 96366; 96367; 96375; 96376; J0456; J0696; J1650; J2920; J2930; J3475; J7050; J7506; J7620

== ENCOUNTER 2018-05-06 17:04 | Emergency (ER) | payer MEDICARE ==
[2018-05-06] MEDS ORDERED: Acetaminophen 500 MG TAB ONE (17:18)
[2018-05-06 17:46] LABS: Band 13 % (5-11); Lymphocytes 7 % (21-51); MDiff Complete? YES; Mean Corpuscular HGB CONC 33.8 g/dL (32.0-36.0); Mean Corpuscular Hemoglobin 32.8 pg (27.0-31.0); Mean Corpuscular Volume 97.3 fL (78.0-98.0); Mean Platelet Volume 9.3 fL (7.4-10.4); Monocytes 5 % (0-10); Neutrophil 75 % (42-75); Platelet Count 251 thou/uL (130-400); Platelet Morphology Comment Appears Adequate; RBC Distribution Width 12.6 % (11.5-14.5); Red Blood Cell (RBC) Count 4.26 mill/uL (4.70-6.10); Toxic Granulation SLIGHT; Vacuoles SLIGHT; White Blood Cell (WBC) Count 13.3 thou/uL (4.8-10.8)
[2018-05-06 17:52] LABS: ALT (SGPT) 40 U/L (8-55); AST (SGOT) 40 U/L (5-34); Alkaline Phosphatase 94 U/L (40-150); Anion Gap 15 mmol/L (10-20); BUN (Urea Nitrogen) 22 mg/dL (8.4-25.7); Bilirubin, Total 0.5 mg/dL (0.2-1.2); Calc. Creatinine Clearance 0 mL/min (70-130); Calcium 9.3 mg/dL (7.8-10.44); Carbon Dioxide 21 mmol/L (23-31); Chloride 105 mmol/L (98-107); Estimated GFR-MDRD 70; Globulin 3.8 g/dL (2.4-3.5); Glucose 97 mg/dL (83-110); Potassium 4.5 mmol/L (3.5-5.1); Protein, Total 7.8 g/dL (5.8-8.1); Sodium 136 mmol/L (136-145)
[2018-05-06] MEDS ORDERED: Sodium Chloride 0.9% 100 ML ONE (17:58)
[2018-05-06] MEDS ORDERED: cefTRIAXone\\ROCEPHIN 1 GM VIAL ONE (17:58)
--- NOTE | 2018-05-06 18:15 | RAD ---
CHEST TWO VIEWS: 05/06/18 INDICATION: History of fever. COMPARISON: Prior exam dated 05/05/18. IMPRESSION: No acute cardiopulmonary abnormality is demonstrated. Chronic lung changes are similar. No consolidat ion, pleural effusion or pneumothorax is demonstrated. POS: [facility]
== END 2018-05-06 18:32 | disposition home or self-care (01) ==
LOC: SCSER 17:04
DX: J20.9 Acute bronchitis, unspecified (principal); M10.9 Gout, unspecified; I10 Essential (primary) hypertension; J45.909 Unspecified asthma, uncomplicated; Z87.891 Personal history of nicotine dependence; E78.5 Hyperlipidemia, unspecified; Z79.899 Other long term (current) drug therapy; Z79.51 Long term (current) use of inhaled steroids
CPT/HCPCS: 71046; 80053; 83605; 84484; 85025; 87804; 96365; J0696; J7050

== ENCOUNTER 2018-07-22 12:34 | Outpatient (CLI) | payer MEDICARE ==
[2018-07-22 14:04] LABS: #Basophils 0.1 thou/uL (0.0-0.2); #Eosinphils 0.1 thou/uL (0.0-0.7); #Lymphocytes 1.5 thou/uL (1.20-3.40); #Monocytes 0.6 thou/uL (0.11-0.59); #Neutrophils 5.1 thou/uL (1.40-6.50); %Basophils 1.2 % (0.0-1.0); %Eosinophils 1.8 % (0.0-10.0); %Lymphocytes 20.2 % (21.0-51.0); %Monocytes 8.5 % (0.0-10.0); %Neutrophils 68.3 % (42.0-75.0); Mean Corpuscular HGB CONC 32.4 g/dL (32.0-36.0); Mean Corpuscular Hemoglobin 32.6 pg (27.0-31.0); Mean Platelet Volume 8.7 fL (7.4-10.4); Platelet Count 244 thou/uL (130-400); RBC Distribution Width 12.5 % (11.5-14.5); Red Blood Cell (RBC) Count 4.27 mill/uL (4.70-6.10); White Blood Cell (WBC) Count 7.5 thou/uL (4.8-10.8)
[2018-07-22 14:25] LABS: ALT (SGPT) 45 U/L (8-55); AST (SGOT) 61 U/L (5-34); Albumin 3.8 g/dL (3.4-4.8); Alkaline Phosphatase 65 U/L (40-150); Anion Gap 12 mmol/L (10-20); BUN (Urea Nitrogen) 22 mg/dL (8.4-25.7); Bilirubin, Total 0.4 mg/dL (0.2-1.2); Calc. Creatinine Clearance 0 mL/min (70-130); Calcium 9.4 mg/dL (7.8-10.44); Carbon Dioxide 24 mmol/L (23-31); Chloride 104 mmol/L (98-107); Estimated GFR-MDRD 65; Globulin 3.7 g/dL (2.4-3.5); Glucose 90 mg/dL (83-110); Potassium 4.3 mmol/L (3.5-5.1); Protein, Total 7.5 g/dL (5.8-8.1); Sodium 136 mmol/L (136-145)
== END 2018-07-22 12:35 | disposition home or self-care (01) ==
LOC: LABBT 12:34
PROVIDERS: ATTEND Surgery
DX: Z01.818 Encounter for other preprocedural examination (principal); K42.9 Umbilical hernia without obstruction or gangrene
CPT/HCPCS: 80053; 85025; 93005; 93010

== ENCOUNTER 2018-07-25 10:42 | Day surgery (SDC) | payer MEDICARE ==
[2018-07-22 12:57] VITALS: BMI 31.6
[2018-07-25] MEDS ORDERED: Bupivacaine/Epinephrine 0.25% 30 ML VIAL ONE (11:39)
[2018-07-25] MEDS ORDERED: Fentanyl 100 MCG/2 ML VIAL ONE (12:22)
[2018-07-25] MEDS ORDERED: ePHEDrine 50 MG/ML VIAL ONE (16:42)
[2018-07-25] MEDS ORDERED: Dexamethasone 20 MG/5 ML VIAL ONE (16:42)
[2018-07-25] MEDS ORDERED: Lidocaine 1% PF 5 ML VIAL ONE (16:42)
[2018-07-25] MEDS ORDERED: Ondansetron PF 4 MG/2 ML Vial ONE (16:42)
[2018-07-25] MEDS ORDERED: PROPOFOL 200 MG/20 ML VIAL ONE (16:42)
--- NOTE | 2018-07-28 09:48 | OP ---
DATE OF PROCEDURE: 07/25/2018 PREOPERATIVE DIAGNOSIS: Umbilical hernia. PROCEDURE PERFORMED: Umbilical hernia repair with mesh. INDICATIONS: A 73-year-old male with enlarging painful umbilical hernia. FINDINGS: 1.5 cm defect, 6.4 cm mesh used. DESCRIPTION OF PROCEDURE: After informed consent was obtained, the patient was taken to the operating room, given general endotracheal anesthesia, placed in supine position. Abdomen was prepped and draped in usual fashion. Local anesthesia was infiltrated subcutaneously and deep. A subumbilical incision was performed. The hernia sac was dissected from overlying skin sharply and down to the fascia circumferentially and excised. Its contents reduced and reduction maintained utilizing a 6.4 cm Proceed mesh. This was hydrated, inserted intra-abdominally, laid out flat. The wings were sutured to the abdominal wall laterally with interrupted 0 Ethibond suture, then further secured to the fascia superior and inferior with a 0 Ethibond suture. Hemostasis achieved. The skin was sutured to the fascia with interrupted 3-0 Vicryl sutures to restore umbilical contour and then skin closed with interrupted 4-0 Rapide. Steri-Strips applied. Sterile bandage applied. The patient tolerated the procedure well, transferred to Recovery in good condition. Sponge and needle count verified correct x2. Job ID: [id number]
== END 2018-07-25 16:45 | disposition home or self-care (01) ==
LOC: SDC 10:42
PROVIDERS: ATTEND Surgery
PROC: 0WUF0JZ Supplement Abdominal Wall with Synthetic Substitute, Open Approach (ICD-10-PCS; principal; 2018-07-25)
DX: K42.9 Umbilical hernia without obstruction or gangrene (principal); I11.9 Hypertensive heart disease without heart failure; E78.00 Pure hypercholesterolemia, unspecified; M10.9 Gout, unspecified; J45.909 Unspecified asthma, uncomplicated; Z79.82 Long term (current) use of aspirin; Z79.899 Other long term (current) drug therapy; Z87.891 Personal history of nicotine dependence
CPT/HCPCS: J0690; J1100; J2001; J2405; J2704; J3010; J3490

== ENCOUNTER 2018-08-13 19:46 | Emergency (ER) | payer MEDICARE ==
--- NOTE | 2018-08-13 21:19 | RAD ---
TWO VIEW CHEST: 08/04/18 INDICATIONS: Fever, cough. COMPARISON: 05/06/18. Increased interstitial and hazy alveolar densities are seen in the right mid and lower lung when com pared to the prior study. Atypical infiltrate in the right mid and lower lung would be suspected give n the interval change and the history of fever and cough. Left lung is clear and unchanged. Heart size is normal. IMPRESSION: Increased interstitial and hazy alveolar densities in the right mid and lower lung when compared to t he prior study. Atypical infiltrate is suspected. Close follow-up recommended. POS: [facility]
[2018-08-13] MEDS ORDERED: cefTRIAXone\\ROCEPHIN 1 GM VIAL ONE (21:31)
[2018-08-13] MEDS ORDERED: Lidocaine 1% PF 5 ML VIAL ONE (21:31)
== END 2018-08-13 22:02 | disposition home or self-care (01) ==
LOC: SCSER 19:46
DX: J18.9 Pneumonia, unspecified organism (principal); E78.5 Hyperlipidemia, unspecified; M10.9 Gout, unspecified; I10 Essential (primary) hypertension; J44.9 Chronic obstructive pulmonary disease, unspecified; Z87.891 Personal history of nicotine dependence
CPT/HCPCS: 71046; 87081; 87430; 87804; 96372; J0696; J2001

== ENCOUNTER 2018-10-05 20:54 | Observation (INO) | payer MEDICARE ==
[2018-10-05] MEDS ORDERED: methylPREDNISolone Sod Succ/PF 125 MG/2 ML VIAL ONE (21:08)
[2018-10-05] MEDS ORDERED: Water For Inject, Bacteriostat 30 ML ONE (21:11)
[2018-10-05 21:19] LABS: #Basophils 0.1 thou/uL (0.0-0.2); #Eosinphils 0.1 thou/uL (0.0-0.7); #Lymphocytes 0.7 thou/uL (1.20-3.40); #Monocytes 0.3 thou/uL (0.11-0.59); #Neutrophils 9.2 thou/uL (1.40-6.50); %Basophils 0.6 % (0.0-1.0); %Eosinophils 1.1 % (0.0-10.0); %Lymphocytes 6.3 % (21.0-51.0); Hemoglobin 13.1 g/dL (14.0-18.0); Mean Corpuscular HGB CONC 33.3 g/dL (32.0-36.0); Mean Corpuscular Volume 98.9 fL (78.0-98.0); Mean Platelet Volume 8.4 fL (7.4-10.4); Platelet Count 218 thou/uL (130-400); RBC Distribution Width 13.6 % (11.5-14.5); Red Blood Cell (RBC) Count 3.98 mill/uL (4.70-6.10); White Blood Cell (WBC) Count 10.4 thou/uL (4.8-10.8)
[2018-10-05 21:28] LABS: ALT (SGPT) 34 U/L (8-55); AST (SGOT) 37 U/L (5-34); Albumin 3.7 g/dL (3.4-4.8); Alkaline Phosphatase 101 U/L (40-150); Anion Gap 13 mmol/L (10-20); BUN (Urea Nitrogen) 22 mg/dL (8.4-25.7); Bilirubin, Total 0.6 mg/dL (0.2-1.2); Calc. Creatinine Clearance 0 mL/min (70-130); Carbon Dioxide 21 mmol/L (23-31); Chloride 108 mmol/L (98-107); Estimated GFR-MDRD 70; Globulin 3.7 g/dL (2.4-3.5); Glucose 119 mg/dL (83-110); Potassium 4.1 mmol/L (3.5-5.1); Protein, Total 7.4 g/dL (5.8-8.1); Sodium 138 mmol/L (136-145)
[2018-10-05 21:42] LABS: Bilirubin Negative (Negative); Blood, Urine Negative (Negative); Clarity Clear (Clear); Glucose, Urine (Dipstick) Negative (Negative); Leukocyte Negative (Negative); Nitrite Negative (Negative); Protein, Urine (Dipstick) Negative (Neg-Trace); Urobilinogen 0.2 mg/dL (Less than 2)
[2018-10-05] MEDS ORDERED: cefTRIAXone\\ROCEPHIN 1 GM VIAL ONE (22:16)
--- NOTE | 2018-10-05 22:17 | RAD ---
CHEST TWO VIEWS: 10/05/2018 HISTORY: Cough. Fever. COMPARISON: 08/13/2018 FINDINGS: There is increased linear interstitial density and pulmonary hyperinflation, similar when compared to the prior examination, suggesting COPD. There is no pneumothorax or pleural effusion. There is sub tle asymmetric increased density seen within the peripheral aspect of the right mid lung zone, which could signify progression of chronic interstitial disease or acute infiltrate. No lobar consolidatio n or alveolar edema. IMPRESSION: 1. Increased linear interstitial density and pulmonary hyperinflation, as detailed above. 2. Subtle increased density in the lateral mid right lung zone. Please see above discussion. POS: [facility]
[2018-10-05] MEDS ORDERED: Azithromycin 500 MG VIAL ONE (22:39)
[2018-10-05] MEDS ORDERED: Acetaminophen 325 MG TAB PO PRN (23:55)
[2018-10-06] MEDS ORDERED: Ondansetron PF 4 MG/2 ML Vial IVP PRN (00:50)
[2018-10-06] MEDS ORDERED: Ondansetron ODT 4 MG TAB PO PRN (00:50)
[2018-10-06] MEDS ORDERED: PROVENTIL INHALER 6.7 G (200 INHALATIONS) INH PRN (00:53)
[2018-10-06] MEDS: Ipratropium Bromide 2.5 ml Neb NEB SCH ×4 (01:40→18:58)
--- NOTE | 2018-10-06 02:25 | HP ---
PRIMARY CARE DOCTOR: Jorge Saunders MD CODE STATUS: Full code. TIME OF EVALUATION: 1:00 a.m. CHIEF COMPLAINT: Fever and cough. HISTORY OF PRESENT ILLNESS: This is a 73-year-old male patient with past medical history of hyperlipidemia, prostate cancer, hypertension, asthma, came to the hospital having fever, chills, associated with cough for the past 2-3 hours prior to presentation to the ER with no clear triggers, no alleviating factors. The patient has a history of pneumonia and reported the symptoms started insidiously, gradually getting worse, mild to moderate. REVIEW OF SYSTEMS: CONSTITUTIONAL: The patient had fever, chills, generalized weakness. RESPIRATORY: The patient cough, scant sputum production, shortness of breath. CARDIOVASCULAR: No chest pain or palpitations. GASTROINTESTINAL: No nausea, vomiting, diarrhea, or abdominal pain. TAR CHASER: No dizziness, headache, or feeling lightheaded. GENITOURINARY: No burning on urination. EXTREMITIES: No leg swelling. All other systems were reviewed and negative except for the findings mentioned above. PAST MEDICAL HISTORY: As mentioned in HPI. PAST SURGICAL HISTORY: The patient has history of hernia repair, right ear, prostate surgery. PSYCHIATRIC HISTORY: No previous psych history. FAMILY HISTORY: Reviewed and non contributory for current presentation. SOCIAL HISTORY: The patient drinks everyday, less than drinks per day. No drug use. Former tobacco user. Smokes cigarettes, quit smoking more than 10-15 years ago. KNOWN ALLERGIES: No known drug allergies. REPORTED MEDICATIONS: 1. Spiriva. 2. Advair. 3. Tamsulosin. 4. Allopurinol. 5. Crestor. 6. Lisinopril. 7. Atenolol. 8. Colchicine. 9. Aspirin. 10. Prevacid. PHYSICAL EXAMINATION: VITAL SIGNS: On presentation, blood pressure 135/81 with heart rate 104, respiratory rate was 22, temperature 98.5, pain 6/10, oxygen saturation 90% on room air. GENERAL: The patient is alert, oriented, in no acute distress. HEENT: Eyes, normal conjunctivae. Moist oral mucosa. Anicteric. No JVD. RESPIRATORY: Bilateral air entry. No rales. No wheezes. Symmetric expansion. CARDIOVASCULAR: Normal rate. Regular rhythm. No murmurs. No gallop. No edema. ABDOMEN: Soft. Normal bowel sounds. MUSCULOSKELETAL: Baseline range of motion and strength. SKIN: Warm, intact. No pallor. No rash. No redness. Capillary refill seems to be intact. NEUROLOGICAL: No evidence of any new focal weakness. Cranial nerves seem to be intact. PSYCH: The patient is in good mood. No anxiety. Optimal judgment. DIAGNOSTIC STUDIES: EKG was reviewed. The patient has sinus tachycardia at a rate of 107 with no other significant acute findings or acute coronary disease or any other disorders. Chest x-ray showed increase in linear interstitial density and pulmonary hyperinflation as detailed above. There is also increase in density in the lateral mid right lung zone. LABORATORY DATA: Reviewed. The patient has white count 10.4, hemoglobin 13.1, MCV 98.9, platelet count 218. Chemistry; sodium 138, potassium 4.1, chloride 108, carbon dioxide 21, anion gap 13, BUN 22, creatinine 1.0, GFR 70, glucose 119, lactic acid 0.8, calcium 9.0, total bilirubin 0.6. LFTs were negative. Troponin was negative. Urine was done, was negative. ASSESSMENT AND PLAN: The patient will be placed in the hospital with following medical problems: 1. Right middle lobe pneumonia. The patient has been started on antibiotics. We will continue for now. We will treat symptomatically. Home medication has been reconciled. 2. History of chronic obstructive pulmonary disease. This is chronic, seems to be stable. Home medication has been reconciled. We will monitor and adjust treatment as needed. 3. Hyperlipidemia. Low-cholesterol diet is advised, reconcile home medications. 4. Gout. This is chronic, seems to be stable. Reconcile home medications. 5. Controlled hypertension. Home medication will be reconciled. We will not treat aggressively since the patient is at high risk for sepsis and complications. 6. Possible sepsis. The patient has tachycardia on presentation 107, respiratory rate was 22, source is pneumonia. Antibiotics have been started. We will give IV fluids. Medication will be adjusted per sensitivity. 7. Deep venous thrombosis prophylaxis. Job ID: [id number] [facility]
[2018-10-06 05:27] LABS: #Lymphocytes 0.4 thou/uL (1.20-3.40); #Monocytes 0.2 thou/uL (0.11-0.59); #Neutrophils 14.3 thou/uL (1.40-6.50); %Eosinophils 0.1 % (0.0-10.0); %Lymphocytes 2.8 % (21.0-51.0); %Monocytes 1.4 % (0.0-10.0); %Neutrophils 95.7 % (42.0-75.0); Mean Corpuscular HGB CONC 31.7 g/dL (32.0-36.0); Mean Corpuscular Hemoglobin 31.8 pg (27.0-31.0); Mean Platelet Volume 8.4 fL (7.4-10.4); Platelet Count 201 thou/uL (130-400); Red Blood Cell (RBC) Count 3.79 mill/uL (4.70-6.10); White Blood Cell (WBC) Count 14.9 thou/uL (4.8-10.8)
[2018-10-06 05:43] LABS: Anion Gap 10 mmol/L (10-20); BUN (Urea Nitrogen) 20 mg/dL (8.4-25.7); Calc. Creatinine Clearance 74 mL/min (70-130); Calcium 8.9 mg/dL (7.8-10.44); Carbon Dioxide 22 mmol/L (23-31); Chloride 106 mmol/L (98-107); Estimated GFR-MDRD 64; Glucose 243 mg/dL (83-110); Sodium 134 mmol/L (136-145)
[2018-10-06] MEDS: Mometasone/Formoterol 120 PUFF INHALER INH SCH ×2 (07:06→18:56)
[2018-10-06] MEDS ORDERED: Non-Formulary Item 1 EACH (Fluticasone/Salmeterol [Advair Diskus 250/50] 1 INH) IH SCH (09:00)
[2018-10-06] MEDS: cefTRIAXone\\ROCEPHIN 1 GM in Sodium Chloride 0.9% 100 ML IVPB SCH ×2 (10:04→22:28)
[2018-10-06] MEDS: Colchicine 0.6 MG TAB PO SCH (10:11)
[2018-10-06] MEDS: Tamsulosin HCl 0.4 MG CAP PO SCH (10:11)
[2018-10-06] MEDS: Atenolol 25 MG TAB PO SCH (10:11)
[2018-10-06] MEDS: Lisinopril 10 MG TAB PO SCH (10:11)
[2018-10-06] MEDS: Enoxaparin Sodium 40 MG/0.4 ML SYRINGE SC SCH (10:11)
--- NOTE | 2018-10-06 12:09 | PDOC.PN ---
- Subjective Encounter Start Date: 10/06/18 Encounter Start Time: 12:07 Patient sitting up in bed with at bedside. He reports feeling better this morning. He denies fever or chills, chest pain, palpitations or shortness of breath. He still complaining of intermittent cough - Objective Resuscitation Status - Order Detail: 10/06/18 00:50 Resuscitation Status Routine Resuscitation Status: FULL: Full Resuscitation MAR Reviewed: Yes Vital Signs & Weight: Vital Signs (12 hours) Temp Pulse Resp BP BP Pulse Ox 10/06/18 10:11 83 115/72 10/06/18 08:00 97.3 F L 83 20 128/65 94 L 10/06/18 07:04 92 16 92 L 10/06/18 01:40 90 18 88 L 10/06/18 01:00 97.7 F 101 H 20 115/72 91 L Weight Weight 201 lb 4 oz I&O: 10/05/18 10/06/18 10/07/18 06:59 06:59 06:59 Intake Total 350 100 Balance 350 100 Result Diagrams: 10/06/18 05:11 10/06/18 05:11 Radiology Reviewed by me: Yes Phys Exam - Physical Examination Constitutional: NAD HEENT: moist MMs, oral pharynx no lesions Neck: no nodes, full ROM Course breath sounds bilaterally Cardiovascular: RRR, no significant murmur Gastrointestinal: soft, positive bowel sounds Musculoskeletal: no edema, pulses present Neurological: non-focal, moves all 4 limbs Lymphatic: no nodes Psychiatric: normal affect, A&O x 3 Skin: no rash, cap refill <2 seconds Dx/Plan (1) COPD exacerbation Code(s): J44.1 - CHRONIC OBSTRUCTIVE PULMONARY DISEASE W (ACUTE) EXACERBATION Status: Acute Comment: Nebs, steroids, abx (2) Community acquired bacterial pneumonia Code(s): J15.9 - UNSPECIFIED BACTERIAL PNEUMONIA Status: Acute (3) BPH (benign prostatic hyperplasia) Code(s): N40.0 - BENIGN PROSTATIC HYPERPLASIA WITHOUT LOWER URINRY TRACT SYMP Status: Chronic (4) COPD (chronic obstructive pulmonary disease) Status: Chronic (5) GERD (gastroesophageal reflux disease) Code(s): K21.9 - GASTRO-ESOPHAGEAL REFLUX DISEASE WITHOUT ESOPHAGITIS Status: Chronic (6) Gout Code(s): M10.9 - GOUT, UNSPECIFIED Status: Chronic (7) Hypertension Code(s): I10 - ESSENTIAL (PRIMARY) HYPERTENSION Status: Chronic - Plan cont current plan of care, plan discussed w/ family, continue antibiotics, respiratory therapy * Continue IV abx for now, await culture results * Continue duonebs and other symptomatic care * Resume home medications * Stable and improving * Likely transition to oral abx such as levaquin prior to discharge in the next 24 hours
[2018-10-06] MEDS ORDERED: ICOSAPENT ETHYL 1 GM PO SCH (17:00)
[2018-10-06] MEDS: ICOSAPENT ETHYL 1 GM PO SCH (18:35)
[2018-10-06] MEDS ORDERED: Rosuvastatin 5 MG TAB PO SCH (21:00)
[2018-10-06] MEDS ORDERED: Allopurinol 300 MG TAB PO SCH (21:00)
[2018-10-06] MEDS ORDERED: Aspirin 81 mg Enteric Coated Tablet PO SCH (21:00)
[2018-10-07] MEDS: Ipratropium Bromide 2.5 ml Neb NEB SCH ×2 (00:46→07:27)
[2018-10-07] MEDS ORDERED: Azithromycin 500 MG in Sodium Chloride 0.9% 250 ML 250 ML IVPB SCH (01:00)
[2018-10-07 07:28] LABS: #Lymphocytes 1.3 thou/uL (1.20-3.40); #Monocytes 0.4 thou/uL (0.11-0.59); #Neutrophils 12.6 thou/uL (1.40-6.50); %Eosinophils 0.2 % (0.0-10.0); %Lymphocytes 9.2 % (21.0-51.0); %Monocytes 2.8 % (0.0-10.0); %Neutrophils 87.7 % (42.0-75.0); Hemoglobin 11.8 g/dL (14.0-18.0); Mean Corpuscular HGB CONC 32.3 g/dL (32.0-36.0); Mean Corpuscular Hemoglobin 32.6 pg (27.0-31.0); Mean Platelet Volume 8.4 fL (7.4-10.4); Platelet Count 229 thou/uL (130-400); Red Blood Cell (RBC) Count 3.63 mill/uL (4.70-6.10); White Blood Cell (WBC) Count 14.4 thou/uL (4.8-10.8)
[2018-10-07] MEDS: Mometasone/Formoterol 120 PUFF INHALER INH SCH (07:29)
[2018-10-07 07:50] LABS: Anion Gap 10 mmol/L (10-20); BUN (Urea Nitrogen) 20 mg/dL (8.4-25.7); Calc. Creatinine Clearance 78 mL/min (70-130); Calcium 9.3 mg/dL (7.8-10.44); Carbon Dioxide 22 mmol/L (23-31); Chloride 108 mmol/L (98-107); Estimated GFR-MDRD 68; Glucose 147 mg/dL (83-110); Potassium 3.8 mmol/L (3.5-5.1); Sodium 136 mmol/L (136-145)
[2018-10-07 08:04] VITALS: TEMP 98.1
[2018-10-07] MEDS: Lisinopril 10 MG TAB PO SCH (08:10)
[2018-10-07] MEDS: Tamsulosin HCl 0.4 MG CAP PO SCH (08:10)
[2018-10-07] MEDS: Enoxaparin Sodium 40 MG/0.4 ML SYRINGE SC SCH (08:11)
[2018-10-07] MEDS: ICOSAPENT ETHYL 1 GM PO SCH (08:11)
[2018-10-07 08:12] VITALS: BP 115/72
[2018-10-07] MEDS: Atenolol 25 MG TAB PO SCH (08:14)
[2018-10-07] MEDS: cefTRIAXone\\ROCEPHIN 1 GM in Sodium Chloride 0.9% 100 ML IVPB SCH (08:15)
[2018-10-07] MEDS: Colchicine 0.6 MG TAB PO SCH (08:16)
== END 2018-10-07 08:45 | disposition home or self-care (01) ==
LOC: SCSER 20:54 → ONC 22:32
PROVIDERS: ADMIT Hospitalist; ATTEND Hospitalist
DX: J15.9 Unspecified bacterial pneumonia (principal); J44.1 Chronic obstructive pulmonary disease with (acute) exacerbation; N40.0 Benign prostatic hyperplasia without lower urinary tract symptoms; K21.9 Gastro-esophageal reflux disease without esophagitis; M1A.9XX0 Chronic gout, unspecified, without tophus (tophi); I10 Essential (primary) hypertension; E78.5 Hyperlipidemia, unspecified; R00.0 Tachycardia, unspecified; Z85.46 Personal history of malignant neoplasm of prostate; Z87.891 Personal history of nicotine dependence; Z79.82 Long term (current) use of aspirin; Z79.51 Long term (current) use of inhaled steroids; Z79.899 Other long term (current) drug therapy
CPT/HCPCS: 71046; 80048 ×2; 80053; 81003; 83605; 84484; 85025 ×3; 87040; 87804 ×2; 93005; 94640 ×5; 94760; 96365; 96366 ×2; 96367; 96375; 99285; G0378 ×3; 36415; J0456; J0696; J1650; J2930; J3490; J7050; J7620

== ENCOUNTER 2020-03-24 11:51 | Outpatient (CLI) | payer MEDICARE ==
--- NOTE | 2020-03-24 12:44 | RAD ---
EXAM: Two views chest PROVIDED CLINICAL HISTORY: Dyspnea COMPARISON: 02/06/2020 FINDINGS: Cardiac and mediastinal silhouette appears stable. Scattered areas of interstitial thickening and par enchymal scarring. No focal consolidation is evident. No pleural fluid or pneumothorax apparent. IMPRESSION: No evidence for an acute cardiopulmonary process.
== END 2020-03-24 11:52 | disposition home or self-care (01) ==
LOC: BICRAD 11:51
PROVIDERS: ATTEND Internal Medicine Pulmonary Disease
DX: R06.00 Dyspnea, unspecified (principal)
CPT/HCPCS: 71046

== ENCOUNTER 2020-08-21 14:48 | Emergency (ER) | payer MEDICARE ==
[2020-08-21] MEDS ORDERED: Diazepam 5 MG TAB ONE (16:56)
== END 2020-08-21 17:33 | disposition home or self-care (01) ==
LOC: ERS 14:48
DX: M54.5 Low back pain (principal); E78.5 Hyperlipidemia, unspecified; M10.9 Gout, unspecified; I10 Essential (primary) hypertension; J44.9 Chronic obstructive pulmonary disease, unspecified; Z87.891 Personal history of nicotine dependence; Z85.46 Personal history of malignant neoplasm of prostate
CPT/HCPCS: 99283

== ENCOUNTER 2020-09-03 08:03 | Inpatient (IN) | payer MEDICARE ==
[2020-09-03] MEDS ORDERED: cefTRIAXone\\ROCEPHIN 1 GM VIAL ONE (09:12)
[2020-09-03 09:31] LABS: Hemoglobin 11.4 g/dL (14.0-18.0); Mean Corpuscular HGB CONC 33.7 g/dL (32.0-36.0); Mean Corpuscular Hemoglobin 34.3 pg (27.0-31.0); Mean Platelet Volume 8.5 fL (7.4-10.4); Platelet Count 267 thou/uL (130-400); Red Blood Cell (RBC) Count 3.34 mill/uL (4.70-6.10); White Blood Cell (WBC) Count 24.7 thou/uL (4.8-10.8)
[2020-09-03 09:47] LABS: ALT (SGPT) 54 U/L (8-55); AST (SGOT) 40 U/L (5-34); Albumin 3.4 g/dL (3.4-4.8); Alkaline Phosphatase 148 U/L (40-110); Anion Gap 15 mmol/L (10-20); BUN (Urea Nitrogen) 45 mg/dL (8.4-25.7); Bilirubin, Total 0.4 mg/dL (0.2-1.2); Calc. Creatinine Clearance 0 mL/min (70-130); Carbon Dioxide 22 mmol/L (23-31); Chloride 102 mmol/L (98-107); Globulin 3.5 g/dL (2.4-3.5); Glucose 104 mg/dL (83-110); Potassium 4.6 mmol/L (3.5-5.1); Protein, Total 6.9 g/dL (5.8-8.1); Sodium 134 mmol/L (136-145)
[2020-09-03] MEDS ORDERED: Fentanyl 100 MCG/2 ML VIAL ONE (09:57)
[2020-09-03] MEDS ORDERED: Azithromycin 500 MG VIAL ONE (09:59)
[2020-09-03 10:07] LABS: Band 27 % (5-11); Lymphocytes 6 % (21-51); MDiff Complete? YES; Neutrophil 67 % (42-75)
[2020-09-03 14:27] VITALS: BMI 28.5
[2020-09-03] MEDS ORDERED: Acetaminophen 325 MG TAB PO PRN ×2 (14:41→15:15)
[2020-09-03] MEDS ORDERED: Lidocaine 5% Patch TD SCH (14:42)
[2020-09-03 14:52] LABS: SARS-CoV-2 NAA Rapid Test Not Detected (NotDetected)
[2020-09-03] MEDS: Lidocaine 5% Patch TD SCH (14:59)
[2020-09-03] MEDS: HYDROcodone/Acetaminophen 5/325 mg Tablet PO PRN ×2 (14:59→20:18)
[2020-09-03] MEDS: Benzonatate 100 MG CAP PO PRN (15:00)
[2020-09-03] MEDS ORDERED: Ondansetron PF 4 MG/2 ML Vial IVP PRN (15:15)
[2020-09-03] MEDS ORDERED: Ondansetron ODT 4 MG TAB SL PRN (15:15)
[2020-09-03] MEDS: Icosapent Ethyl 1 GM CAPSULE PO SCH (18:13)
[2020-09-03] MEDS: Sodium Chloride 0.9% 1,000 ML IV SCH (18:13)
[2020-09-03] MEDS: Mometasone 200 MCG/Formoterol 5 MCG 120 PUFF INHALER INH SCH (19:51)
[2020-09-03] MEDS: Ipratropium Bromide 2.5 ml Neb NEB SCH ×2 (19:52→22:50)
[2020-09-03] MEDS ORDERED: Rosuvastatin 5 MG TAB PO SCH (21:00)
[2020-09-03] MEDS: Cholecalciferol 1,000 UNITS (25 MCG) TAB PO SCH (21:17)
[2020-09-04] MEDS: HYDROcodone/Acetaminophen 5/325 mg Tablet PO PRN ×4 (02:05→20:54)
[2020-09-04] MEDS: Benzonatate 100 MG CAP PO PRN ×2 (02:06→20:55)
[2020-09-04] MEDS: Lidocaine Patch Removal TOP SCH (02:07)
[2020-09-04 05:01] LABS: Bilirubin Negative (Negative); Blood, Urine Negative (Negative); Clarity Clear (Clear); Glucose, Urine (Dipstick) Normal (Negative); Ketone, Urine Negative (Negative); Leukocyte Negative Leu/uL (Negative); Nitrite Negative (Negative); Protein, Urine (Dipstick) 20 mg/dL (Neg-Trace); Specific Gravity, Urine 1.023 (1.002-1.036); Urobilinogen Normal mg/dL (Less than 2)
[2020-09-04] MEDS ORDERED: Morphine 2 MG/ML VIAL SLOW IVP SCH (05:30)
[2020-09-04] MEDS: Sodium Chloride 0.9% 1,000 ML IV SCH (05:35)
[2020-09-04 07:10] LABS: ALT (SGPT) 38 U/L (8-55); AST (SGOT) 29 U/L (5-34); Albumin 2.7 g/dL (3.4-4.8); Alkaline Phosphatase 120 U/L (40-110); Bilirubin, Direct 0.2 mg/dL (0.1-0.3); Bilirubin, Total 0.3 mg/dL (0.2-1.2); Protein, Total 5.8 g/dL (5.8-8.1)
[2020-09-04] MEDS: Ipratropium Bromide 2.5 ml Neb NEB SCH ×3 (07:21→18:41)
[2020-09-04] MEDS: Mometasone 200 MCG/Formoterol 5 MCG 120 PUFF INHALER INH SCH ×2 (07:26→18:41)
[2020-09-04 07:34] LABS: Thyroid Stimulating Hormone 1.2069 uIU/mL (0.35-4.94)
[2020-09-04 08:16] LABS: #Basophils 0.1 thou/uL (0.0-0.2); #Eosinphils 0.1 thou/uL (0.0-0.7); #Lymphocytes 1.2 thou/uL (1.20-3.40); #Monocytes 0.6 thou/uL (0.11-0.59); #Neutrophils 19.3 thou/uL (1.40-6.50); %Basophils 0.3 % (0.0-1.0); %Eosinophils 0.4 % (0.0-10.0); %Lymphocytes 5.7 % (21.0-51.0); %Monocytes 2.8 % (0.0-10.0); %Neutrophils 90.8 % (42.0-75.0); Hemoglobin 9.6 g/dL (14.0-18.0); Mean Corpuscular HGB CONC 31.1 g/dL (32.0-36.0); Mean Corpuscular Hemoglobin 32.1 pg (27.0-31.0); Mean Platelet Volume 8.1 fL (7.4-10.4); Platelet Count 217 thou/uL (130-400); RBC Distribution Width 12.9 % (11.5-14.5); Red Blood Cell (RBC) Count 2.99 mill/uL (4.70-6.10); White Blood Cell (WBC) Count 21.3 thou/uL (4.8-10.8)
[2020-09-04 08:32] LABS: ALT (SGPT) 39 U/L (8-55); AST (SGOT) 32 U/L (5-34); Albumin 2.8 g/dL (3.4-4.8); Alkaline Phosphatase 126 U/L (40-110); Anion Gap 8 mmol/L (10-20); BUN (Urea Nitrogen) 28 mg/dL (8.4-25.7); Bilirubin, Total 0.3 mg/dL (0.2-1.2); Calc. Creatinine Clearance 72 mL/min (70-130); Calcium 8.7 mg/dL (7.8-10.44); Carbon Dioxide 23 mmol/L (23-31); Chloride 109 mmol/L (98-107); Globulin 3.2 g/dL (2.4-3.5); Glucose 91 mg/dL (83-110); Potassium 4.1 mmol/L (3.5-5.1); Sodium 136 mmol/L (136-145)
[2020-09-04] MEDS ORDERED: Tamsulosin HCl 0.4 MG CAP PO SCH (09:00)
[2020-09-04] MEDS ORDERED: Morphine IR 10 MG/5 ML UDCUP PO PRN (09:04)
[2020-09-04] MEDS: Dexamethasone 4 MG TAB PO SCH (09:05)
[2020-09-04] MEDS ORDERED: Lorazepam 1 MG TAB PO PRN (09:06)
[2020-09-04] MEDS: Folic Acid 1 MG TAB PO SCH (09:07)
[2020-09-04] MEDS: Icosapent Ethyl 1 GM CAPSULE PO SCH ×2 (09:08→16:39)
[2020-09-04] MEDS: Lidocaine 5% Patch TD SCH (15:23)
[2020-09-04] MEDS ORDERED: Loratadine 10 MG TAB PO SCH (16:45)
[2020-09-04] MEDS ORDERED: Levothyroxine Sodium 25 MCG TAB PO SCH (16:45)
[2020-09-04] MEDS ORDERED: Calcium Carbonate 500 MG ChewTAB PO PRN (18:14)
[2020-09-04] MEDS ORDERED: Senokot S 8.6-50 MG TAB PO PRN (18:14)
[2020-09-04] MEDS ORDERED: Bisacodyl 5 MG TAB PO PRN (18:14)
[2020-09-04] MEDS ORDERED: cefTRIAXone\\ROCEPHIN 1 GM in Sodium Chloride 0.9% 100 ML IVPB SCH (20:00)
[2020-09-04] MEDS: Cholecalciferol 1,000 UNITS (25 MCG) TAB PO SCH (20:53)
[2020-09-04] MEDS ORDERED: Allopurinol 300 MG TAB PO SCH ×2 (21:00)
[2020-09-04] MEDS ORDERED: Enoxaparin Sodium 40 MG/0.4 ML SYRINGE SC SCH (21:00)
[2020-09-04] MEDS ORDERED: Rosuvastatin 5 MG TAB PO SCH (21:00)
[2020-09-04] MEDS ORDERED: Azithromycin 250 MG TAB PO SCH (21:00)
[2020-09-04] MEDS ORDERED: Aspirin 81 mg Enteric Coated Tablet PO SCH ×2 (21:00)
[2020-09-05] MEDS: Ipratropium Bromide 2.5 ml Neb NEB SCH ×3 (00:33→12:34)
[2020-09-05] MEDS: HYDROcodone/Acetaminophen 5/325 mg Tablet PO PRN ×3 (02:02→13:14)
[2020-09-05] MEDS: Lidocaine Patch Removal TOP SCH (02:02)
[2020-09-05] MEDS: Benzonatate 100 MG CAP PO PRN (02:08)
[2020-09-05] MEDS ORDERED: Levothyroxine Sodium 25 MCG TAB PO SCH ×2 (06:00)
[2020-09-05 06:23] LABS: #Lymphocytes 0.7 thou/uL (1.20-3.40); #Monocytes 0.2 thou/uL (0.11-0.59); #Neutrophils 17.9 thou/uL (1.40-6.50); %Basophils 0.1 % (0.0-1.0); %Eosinophils 0.1 % (0.0-10.0); %Lymphocytes 3.7 % (21.0-51.0); %Neutrophils 95.1 % (42.0-75.0); Hemoglobin 9.9 g/dL (14.0-18.0); Mean Corpuscular HGB CONC 33.2 g/dL (32.0-36.0); Mean Corpuscular Hemoglobin 33.8 pg (27.0-31.0); Mean Platelet Volume 8.6 fL (7.4-10.4); Platelet Count 222 thou/uL (130-400); RBC Distribution Width 12.8 % (11.5-14.5); Red Blood Cell (RBC) Count 2.93 mill/uL (4.70-6.10); White Blood Cell (WBC) Count 18.8 thou/uL (4.8-10.8)
[2020-09-05] MEDS: Mometasone 200 MCG/Formoterol 5 MCG 120 PUFF INHALER INH SCH (07:00)
[2020-09-05] MEDS: Icosapent Ethyl 1 GM CAPSULE PO SCH (08:33)
[2020-09-05] MEDS: Dexamethasone 4 MG TAB PO SCH (08:34)
[2020-09-05] MEDS: Folic Acid 1 MG TAB PO SCH (08:34)
[2020-09-05] MEDS ORDERED: LANSOPRAZOLE 15 MG PO SCH (09:00)
[2020-09-05] MEDS ORDERED: Montelukast Sodium 10 mg Tablet PO SCH ×2 (09:00)
[2020-09-05] MEDS ORDERED: Colchicine 0.6 MG TAB PO SCH ×2 (09:00)
[2020-09-05] MEDS ORDERED: Tamsulosin HCl 0.4 MG CAP PO SCH (09:00)
[2020-09-05] MEDS ORDERED: Loratadine 10 MG TAB PO SCH (09:00)
[2020-09-05] MEDS ORDERED: [UNRECOGNIZED DRUG - OTHER] PO SCH (09:00)
[2020-09-05] MEDS ORDERED: Non-Formulary Item 1 EACH (Tiotropium Bromide 4 GM Inhaler) PO SCH (09:00)
[2020-09-05] MEDS ORDERED: Fentanyl 100 MCG/2 ML VIAL ONE (11:27)
[2020-09-05] MEDS ORDERED: Sodium Bicarbonate 2.5 MEQ/5 ML VIAL ONE (11:27)
[2020-09-05] MEDS ORDERED: Midazolam HCl 2 mg/2 ml Vial ONE (11:27)
[2020-09-05 14:06] VITALS: BP 153/76; TEMP 97.8
[2020-09-05] MEDS: Lidocaine 5% Patch TD SCH (14:36)
== END 2020-09-05 15:28 | disposition home or self-care (01) | DRG 871 ==
LOC: ERS 08:03 → T4-A 12:27
PROVIDERS: ADMIT Internal Medicine; ATTEND Internal Medicine
PROC: 07DR3ZX Extraction of Iliac Bone Marrow, Percutaneous Approach, Diagnostic (ICD-10-PCS; principal; 2020-09-05)
PROC: BR2DZZZ Computerized Tomography (CT Scan) of Sacroiliac Joints (ICD-10-PCS; 2020-09-05)
DX: A41.9 Sepsis, unspecified organism (principal); J18.9 Pneumonia, unspecified organism; J96.01 Acute respiratory failure with hypoxia; C90.00 Multiple myeloma not having achieved remission; N17.9 Acute kidney failure, unspecified; C79.51 Secondary malignant neoplasm of bone; M84.58XA Pathological fracture in neoplastic disease, other specified site, initial encounter for fracture; I10 Essential (primary) hypertension; R65.20 Severe sepsis without septic shock; J44.9 Chronic obstructive pulmonary disease, unspecified; K21.9 Gastro-esophageal reflux disease without esophagitis; D53.9 Nutritional anemia, unspecified; I71.4 Abdominal aortic aneurysm, without rupture; K59.00 Constipation, unspecified; I95.9 Hypotension, unspecified; R00.0 Tachycardia, unspecified; Z20.822 Contact with and (suspected) exposure to COVID-19; Z85.46 Personal history of malignant neoplasm of prostate; Z87.891 Personal history of nicotine dependence; Z79.82 Long term (current) use of aspirin; Z79.899 Other long term (current) drug therapy; Z79.51 Long term (current) use of inhaled steroids; Z98.890 Other specified postprocedural states; Z80.0 Family history of malignant neoplasm of digestive organs; Z80.8 Family history of malignant neoplasm of other organs or systems
CPT/HCPCS: 0240U; 20225; 36415; 71045; 77012; 80053; 80076; 81003; 82607; 82746; 83605; 83883; 84166; 84443; 85025; 85097; 86335; 87040; 87070; 87205; 88184; 88185; 88305; 88311; 88313; 88341; 88342; 96365; 96367; 96374; J0456; J0696; J2250; J2270; J3010; J3490; J8540

== ENCOUNTER 2020-09-06 07:35 | Outpatient (CLI) | payer MEDICARE ==
[~2020-09-06 07:35] MED LIST: Acetaminophen 325 MG TAB PO PRN; Allopurinol 300 MG TAB PO SCH; Aspirin 81 mg Enteric Coated Tablet PO SCH; Azithromycin 250 MG TAB PO SCH; Bisacodyl 5 MG TAB PO PRN; Calcium Carbonate 500 MG ChewTAB PO PRN; Colchicine 0.6 MG TAB PO SCH; Enoxaparin Sodium 40 MG/0.4 ML SYRINGE SC SCH; HYDROcodone/Acetaminophen 5/325 mg Tablet PO PRN; Lidocaine 5% Patch TD SCH; Non-Formulary Item 1 EACH (Albuterol Sulfate [Albuterol Sulfate Hfa] 8.5 GM Hfa.Aer.Ad) IH PRN; Non-Formulary Item 1 EACH (Cholecalciferol (Vitamin D3) [Vitamin D3] 2,000 UNIT Capsule) PO SCH; Non-Formulary Item 1 EACH (Fluticasone/Salmeterol [Advair Diskus 250/50] 1 EACH Blst.W.De IH SCH; Ondansetron ODT 4 MG TAB PO PRN; Rosuvastatin 5 MG TAB PO SCH; Senokot S 8.6-50 MG TAB PO PRN; Tamsulosin HCl 0.4 MG CAP PO SCH; cefTRIAXone\\ROCEPHIN 1 GM in Sodium Chloride 0.9% 100 ML IVPB SCH
== END 2020-09-06 07:36 | disposition home or self-care (01) ==
LOC: PET 07:35
PROVIDERS: ATTEND Internal Medicine Hematology & Oncology
DX: C79.51 Secondary malignant neoplasm of bone (principal)
CPT/HCPCS: 78815; A9552

== ENCOUNTER 2020-09-19 09:58 | Inpatient (IN) | payer MEDICARE ==
[~2020-09-19 09:58] MED LIST changes: -Acetaminophen 325 MG TAB PO PRN; -Allopurinol 300 MG TAB PO SCH; -Aspirin 81 mg Enteric Coated Tablet PO SCH; -Azithromycin 250 MG TAB PO SCH; -Bisacodyl 5 MG TAB PO PRN; -Calcium Carbonate 500 MG ChewTAB PO PRN; -Colchicine 0.6 MG TAB PO SCH; -Enoxaparin Sodium 40 MG/0.4 ML SYRINGE SC SCH; -HYDROcodone/Acetaminophen 5/325 mg Tablet PO PRN; +Iopamidol-370 76% 500 ML 1 ML ONE; -Lidocaine 5% Patch TD SCH; -Non-Formulary Item 1 EACH (Albuterol Sulfate [Albuterol Sulfate Hfa] 8.5 GM Hfa.Aer.Ad) IH PRN; -Non-Formulary Item 1 EACH (Cholecalciferol (Vitamin D3) [Vitamin D3] 2,000 UNIT Capsule) PO SCH; -Non-Formulary Item 1 EACH (Fluticasone/Salmeterol [Advair Diskus 250/50] 1 EACH Blst.W.De IH SCH; -Ondansetron ODT 4 MG TAB PO PRN; -Rosuvastatin 5 MG TAB PO SCH; -Senokot S 8.6-50 MG TAB PO PRN; -Tamsulosin HCl 0.4 MG CAP PO SCH; -cefTRIAXone\\ROCEPHIN 1 GM in Sodium Chloride 0.9% 100 ML IVPB SCH
[2020-09-19 10:33] LABS: #Basophils 0.1 thou/uL (0.0-0.2); #Eosinphils 0.1 thou/uL (0.0-0.7); #Lymphocytes 1.1 thou/uL (1.20-3.40); #Monocytes 0.5 thou/uL (0.11-0.59); #Neutrophils 9.5 thou/uL (1.40-6.50); %Basophils 0.5 % (0.0-1.0); %Eosinophils 1.3 % (0.0-10.0); %Lymphocytes 9.6 % (21.0-51.0); %Monocytes 4.6 % (0.0-10.0); %Neutrophils 83.9 % (42.0-75.0); Hemoglobin 11.2 g/dL (14.0-18.0); Mean Corpuscular Hemoglobin 33.8 pg (27.0-31.0); Mean Corpuscular Volume 99.4 fL (78.0-98.0); Mean Platelet Volume 8.8 fL (7.4-10.4); Platelet Count 200 thou/uL (130-400); RBC Distribution Width 13.1 % (11.5-14.5); Red Blood Cell (RBC) Count 3.32 mill/uL (4.70-6.10); White Blood Cell (WBC) Count 11.3 thou/uL (4.8-10.8)
[2020-09-19 10:53] LABS: ALT (SGPT) 49 U/L (8-55); AST (SGOT) 48 U/L (5-34); Albumin 3.2 g/dL (3.4-4.8); Alkaline Phosphatase 187 U/L (40-110); Anion Gap 16 mmol/L (10-20); BUN (Urea Nitrogen) 22 mg/dL (8.4-25.7); Bilirubin, Total 0.3 mg/dL (0.2-1.2); Calc. Creatinine Clearance 0 mL/min (70-130); Calcium 8.9 mg/dL (7.8-10.44); Carbon Dioxide 21 mmol/L (23-31); Chloride 102 mmol/L (98-107); Glucose 118 mg/dL (83-110); Potassium 4.5 mmol/L (3.5-5.1); Protein, Total 7.2 g/dL (5.8-8.1); Sodium 134 mmol/L (136-145)
[2020-09-19] MEDS ORDERED: Cefepime 2 GM VIAL ONE (11:20)
[2020-09-19] MEDS ORDERED: Cepastat Lozenges 1 LOZ PO PRN (12:06)
[2020-09-19] MEDS ORDERED: Zolpidem Tartrate 5 MG TAB PO PRN (12:06)
[2020-09-19] MEDS ORDERED: hydrALAZINE 20 MG/ML VIAL SLOW IVP PRN (12:06)
[2020-09-19] MEDS ORDERED: Sodium Chloride 0.65% Nasal 44 ML BOT EA NARE PRN (12:06)
[2020-09-19] MEDS ORDERED: Ondansetron PF 4 MG/2 ML Vial IVP PRN (12:06)
[2020-09-19] MEDS ORDERED: Guaifenesin DM 100-10/5 ML UDCUP PO PRN (12:06)
[2020-09-19] MEDS ORDERED: Acetaminophen 325 MG TAB PO PRN (12:06)
[2020-09-19] MEDS ORDERED: Loperamide HCl 2 MG CAP PO PRN (12:06)
[2020-09-19] MEDS ORDERED: Ondansetron ODT 4 MG TAB PO PRN (12:06)
[2020-09-19] MEDS ORDERED: Calcium Carbonate 500 MG ChewTAB PO PRN (12:06)
[2020-09-19] MEDS ORDERED: Loratadine 10 MG TAB PO PRN (12:06)
[2020-09-19] MEDS ORDERED: Senokot S 8.6-50 MG TAB PO PRN (12:06)
[2020-09-19] MEDS ORDERED: Bisacodyl 10 MG SUPP PR PRN (12:06)
[2020-09-19] MEDS ORDERED: Vancomycin 1 GM/200 ML BAG ONE (12:08)
[2020-09-19] MEDS ORDERED: Ketorolac Tromethamine 30 MG/ML VIAL ONE (13:14)
[2020-09-19 15:08] VITALS: BMI 27.8
[2020-09-19] MEDS ORDERED: Vancomycin 1 GM in Premix Bag 1 BAG IVPB SCH (16:00)
[2020-09-19] MEDS ORDERED: VANCOMYCIN 2 GRAM/400 ML BAG 2 GM in Premix Bag 1 BAG IVPB SCH (16:00)
[2020-09-19 17:32] LABS: Bacteria/HPF None Seen HPF (None Seen); Bilirubin Negative (Negative); Blood, Urine Negative (Negative); Clarity Clear (Clear); Glucose, Urine (Dipstick) Normal (Negative); Ketone, Urine Negative (Negative); Leukocyte Negative Leu/uL (Negative); Nitrite Negative (Negative); Protein, Urine (Dipstick) 10 mg/dL (Neg-Trace); RBC/HPF 0-3 HPF (0-3); Squamous Epithelial 0-3 HPF (0-3); Urobilinogen Normal mg/dL (Less than 2); WBC/HPF 0-3 HPF (0-3)
[2020-09-19 17:33] LABS: Specific Gravity, Urine 1.054 (1.002-1.036)
[2020-09-19] MEDS: Budesonide 0.5 MG/2 ML NEB NEB SCH (18:12)
[2020-09-19] MEDS: Allopurinol 300 MG TAB PO SCH (20:42)
[2020-09-19] MEDS: Rosuvastatin 5 MG TAB PO SCH (20:42)
[2020-09-19] MEDS: guaiFENesin ER 600 MG TAB PO SCH (20:42)
[2020-09-19] MEDS: Famotidine 20 MG TAB PO SCH (20:42)
[2020-09-19] MEDS: Aspirin 81 mg Enteric Coated Tablet PO SCH (20:42)
[2020-09-19] MEDS: Cefepime 1 GM in Sodium Chloride 0.9% 100 ML IVPB SCH (23:13)
[2020-09-20] MEDS: HYDROcodone/Acetaminophen 5/325 mg Tablet PO PRN ×4 (00:55→18:12)
[2020-09-20] MEDS: Benzonatate 100 MG CAP PO PRN ×2 (00:59→20:14)
[2020-09-20] MEDS: Levothyroxine Sodium 25 MCG TAB PO SCH (05:12)
[2020-09-20 05:54] LABS: #Eosinphils 0.1 thou/uL (0.0-0.7); #Lymphocytes 1.3 thou/uL (1.20-3.40); #Monocytes 0.8 thou/uL (0.11-0.59); #Neutrophils 9.7 thou/uL (1.40-6.50); %Basophils 0.3 % (0.0-1.0); %Eosinophils 1.2 % (0.0-10.0); %Lymphocytes 11.1 % (21.0-51.0); %Monocytes 6.6 % (0.0-10.0); %Neutrophils 80.8 % (42.0-75.0); Mean Corpuscular HGB CONC 32.7 g/dL (32.0-36.0); Mean Corpuscular Hemoglobin 32.5 pg (27.0-31.0); Mean Corpuscular Volume 99.1 fL (78.0-98.0); Mean Platelet Volume 8.9 fL (7.4-10.4); Platelet Count 202 thou/uL (130-400); RBC Distribution Width 13.3 % (11.5-14.5); Red Blood Cell (RBC) Count 3.07 mill/uL (4.70-6.10)
[2020-09-20 06:01] LABS: ALT (SGPT) 37 U/L (8-55); AST (SGOT) 34 U/L (5-34); Albumin 2.9 g/dL (3.4-4.8); Alkaline Phosphatase 163 U/L (40-110); Anion Gap 12 mmol/L (10-20); BUN (Urea Nitrogen) 24 mg/dL (8.4-25.7); Bilirubin, Total 0.4 mg/dL (0.2-1.2); Calc. Creatinine Clearance 61 mL/min (70-130); Calcium 8.9 mg/dL (7.8-10.44); Carbon Dioxide 23 mmol/L (23-31); Chloride 102 mmol/L (98-107); Globulin 3.5 g/dL (2.4-3.5); Glucose 96 mg/dL (83-110); Potassium 4.4 mmol/L (3.5-5.1); Protein, Total 6.4 g/dL (5.8-8.1); Sodium 133 mmol/L (136-145)
[2020-09-20] MEDS: Budesonide 0.5 MG/2 ML NEB NEB SCH (06:39)
[2020-09-20] MEDS: Saccharomyces boulardii 250 MG CAP PO SCH (10:04)
[2020-09-20] MEDS: Famotidine 20 MG TAB PO SCH ×2 (10:05→20:15)
[2020-09-20] MEDS: guaiFENesin ER 600 MG TAB PO SCH ×2 (10:05→20:14)
[2020-09-20] MEDS: Folic Acid 1 MG TAB PO SCH (10:05)
[2020-09-20] MEDS: Tamsulosin HCl 0.4 MG CAP PO SCH (10:05)
[2020-09-20] MEDS: Cyanocobalamin (Vitamin B-12) 1,000 MCG TAB PO SCH (10:05)
[2020-09-20] MEDS: Montelukast Sodium 10 mg Tablet PO SCH (10:05)
[2020-09-20] MEDS: Enoxaparin Sodium 40 MG/0.4 ML SYRINGE SC SCH (10:06)
[2020-09-20] MEDS: Cefepime 1 GM in Sodium Chloride 0.9% 100 ML IVPB SCH ×2 (11:55→23:46)
[2020-09-20] MEDS: methylPREDNISolone Sod Succ 40 MG VIAL IVP SCH ×3 (11:57→23:46)
[2020-09-20] MEDS ORDERED: Vancomycin 1.5 GRAM/300 ML BAG 1.5 GM in Premix Bag 1 BAG IVPB SCH ×2 (13:00→16:00)
[2020-09-20] MEDS: Mometasone 200 MCG/Formoterol 5 MCG 120 PUFF INHALER INH SCH (18:53)
[2020-09-20] MEDS: Rosuvastatin 5 MG TAB PO SCH (20:14)
[2020-09-20] MEDS: Aspirin 81 mg Enteric Coated Tablet PO SCH (20:14)
[2020-09-20] MEDS: Allopurinol 300 MG TAB PO SCH (20:14)
[2020-09-21] MEDS: HYDROcodone/Acetaminophen 5/325 mg Tablet PO PRN (01:56)
[2020-09-21] MEDS: Levothyroxine Sodium 25 MCG TAB PO SCH (05:11)
[2020-09-21] MEDS: methylPREDNISolone Sod Succ 40 MG VIAL IVP SCH ×2 (05:16→17:32)
[2020-09-21 06:12] LABS: #Lymphocytes 0.6 thou/uL (1.20-3.40); #Monocytes 0.1 thou/uL (0.11-0.59); #Neutrophils 8.1 thou/uL (1.40-6.50); %Basophils 0.1 % (0.0-1.0); %Eosinophils 0.2 % (0.0-10.0); %Lymphocytes 7.3 % (21.0-51.0); %Monocytes 1.2 % (0.0-10.0); %Neutrophils 91.2 % (42.0-75.0); Hemoglobin 10.3 g/dL (14.0-18.0); Mean Corpuscular HGB CONC 32.2 g/dL (32.0-36.0); Mean Corpuscular Hemoglobin 31.9 pg (27.0-31.0); Mean Platelet Volume 9.1 fL (7.4-10.4); Platelet Count 224 thou/uL (130-400); Red Blood Cell (RBC) Count 3.23 mill/uL (4.70-6.10); White Blood Cell (WBC) Count 8.8 thou/uL (4.8-10.8)
[2020-09-21 06:29] LABS: Anion Gap 16 mmol/L (10-20); BUN (Urea Nitrogen) 33 mg/dL (8.4-25.7); Calc. Creatinine Clearance 64 mL/min (70-130); Calcium 9.1 mg/dL (7.8-10.44); Carbon Dioxide 19 mmol/L (23-31); Chloride 105 mmol/L (98-107); Glucose 165 mg/dL (83-110); Potassium 4.8 mmol/L (3.5-5.1); Sodium 135 mmol/L (136-145)
[2020-09-21] MEDS: Mometasone 200 MCG/Formoterol 5 MCG 120 PUFF INHALER INH SCH ×2 (06:47→18:18)
[2020-09-21] MEDS: Folic Acid 1 MG TAB PO SCH (08:48)
[2020-09-21] MEDS: Famotidine 20 MG TAB PO SCH (08:48)
[2020-09-21] MEDS: Cyanocobalamin (Vitamin B-12) 1,000 MCG TAB PO SCH (08:48)
[2020-09-21] MEDS: Montelukast Sodium 10 mg Tablet PO SCH (08:48)
[2020-09-21] MEDS: Tamsulosin HCl 0.4 MG CAP PO SCH (08:48)
[2020-09-21] MEDS: guaiFENesin ER 600 MG TAB PO SCH ×2 (08:48→21:16)
[2020-09-21] MEDS: Saccharomyces boulardii 250 MG CAP PO SCH (08:48)
[2020-09-21] MEDS: Enoxaparin Sodium 40 MG/0.4 ML SYRINGE SC SCH (08:49)
[2020-09-21] MEDS: Atenolol 25 MG TAB PO SCH (09:33)
[2020-09-21] MEDS: Colchicine 0.6 MG TAB PO SCH (09:33)
[2020-09-21] MEDS ORDERED: Losartan 25 MG TAB PO SCH (10:00)
[2020-09-21] MEDS: Cefepime 1 GM in Sodium Chloride 0.9% 100 ML IVPB SCH ×2 (11:05→22:21)
[2020-09-21] MEDS: Ipratropium Bromide 2.5 ml Neb NEB SCH ×3 (12:16→23:22)
[2020-09-21 12:39] LABS: Vancomycin, Trough 11.7 ug/mL
[2020-09-21] MEDS ORDERED: VANCOMYCIN 1.75 GM/350 ML BAG 1.75 GM in Premix Bag 1 BAG IVPB SCH (13:00)
[2020-09-21] MEDS: Allopurinol 300 MG TAB PO SCH (21:16)
[2020-09-21] MEDS: Rosuvastatin 5 MG TAB PO SCH (21:16)
[2020-09-21] MEDS: Aspirin 81 mg Enteric Coated Tablet PO SCH (21:16)
[2020-09-22] MEDS: Levothyroxine Sodium 25 MCG TAB PO SCH (05:47)
[2020-09-22] MEDS: methylPREDNISolone Sod Succ 40 MG VIAL IVP SCH (05:48)
[2020-09-22 06:13] LABS: #Lymphocytes 0.6 thou/uL (1.20-3.40); #Monocytes 0.4 thou/uL (0.11-0.59); #Neutrophils 10.8 thou/uL (1.40-6.50); %Basophils 0.1 % (0.0-1.0); %Eosinophils 0.1 % (0.0-10.0); %Lymphocytes 4.8 % (21.0-51.0); %Neutrophils 92.1 % (42.0-75.0); Hemoglobin 9.8 g/dL (14.0-18.0); Mean Corpuscular HGB CONC 31.8 g/dL (32.0-36.0); Mean Platelet Volume 9.3 fL (7.4-10.4); Platelet Count 245 thou/uL (130-400); RBC Distribution Width 13.2 % (11.5-14.5); Red Blood Cell (RBC) Count 3.06 mill/uL (4.70-6.10); White Blood Cell (WBC) Count 11.7 thou/uL (4.8-10.8)
[2020-09-22 06:25] LABS: Anion Gap 14 mmol/L (10-20); BUN (Urea Nitrogen) 39 mg/dL (8.4-25.7); Calc. Creatinine Clearance 60 mL/min (70-130); Calcium 9.3 mg/dL (7.8-10.44); Carbon Dioxide 19 mmol/L (23-31); Chloride 108 mmol/L (98-107); Glucose 126 mg/dL (83-110); Magnesium 2.2 mg/dL (1.6-2.6); Potassium 4.9 mmol/L (3.5-5.1); Sodium 136 mmol/L (136-145)
[2020-09-22] MEDS: Ipratropium Bromide 2.5 ml Neb NEB SCH ×3 (06:43→18:50)
[2020-09-22] MEDS: Mometasone 200 MCG/Formoterol 5 MCG 120 PUFF INHALER INH SCH ×2 (06:45→18:51)
[2020-09-22] MEDS: guaiFENesin ER 600 MG TAB PO SCH ×2 (08:10→20:31)
[2020-09-22] MEDS: Loratadine 10 MG TAB PO SCH (08:11)
[2020-09-22] MEDS: Cyanocobalamin (Vitamin B-12) 1,000 MCG TAB PO SCH (08:11)
[2020-09-22] MEDS: Montelukast Sodium 10 mg Tablet PO SCH (08:11)
[2020-09-22] MEDS: Atenolol 25 MG TAB PO SCH (08:11)
[2020-09-22] MEDS: Folic Acid 1 MG TAB PO SCH (08:11)
[2020-09-22] MEDS: Colchicine 0.6 MG TAB PO SCH (08:11)
[2020-09-22] MEDS: Saccharomyces boulardii 250 MG CAP PO SCH (08:11)
[2020-09-22] MEDS: Losartan 25 MG TAB PO SCH (08:11)
[2020-09-22] MEDS: Tamsulosin HCl 0.4 MG CAP PO SCH (08:12)
[2020-09-22] MEDS ORDERED: Losartan 25 MG TAB PO SCH (09:00)
[2020-09-22] MEDS: Aspirin 81 mg Enteric Coated Tablet PO SCH (20:30)
[2020-09-22] MEDS: Rosuvastatin 5 MG TAB PO SCH (20:30)
[2020-09-22] MEDS: Allopurinol 300 MG TAB PO SCH (20:30)
[2020-09-22] MEDS ORDERED: Temazepam 15 MG CAP PO SCH (21:00)
[2020-09-23] MEDS: Ipratropium Bromide 2.5 ml Neb NEB SCH ×2 (00:10→06:45)
[2020-09-23] MEDS: Levothyroxine Sodium 25 MCG TAB PO SCH (05:41)
[2020-09-23] MEDS: Mometasone 200 MCG/Formoterol 5 MCG 120 PUFF INHALER INH SCH (06:44)
[2020-09-23 07:19] VITALS: BP 131/70; TEMP 98
[2020-09-23] MEDS ORDERED: predniSONE 20 MG TAB PO SCH (08:00)
[2020-09-23] MEDS: Atenolol 25 MG TAB PO SCH (08:47)
[2020-09-23] MEDS: Folic Acid 1 MG TAB PO SCH (08:48)
[2020-09-23] MEDS: Colchicine 0.6 MG TAB PO SCH (08:48)
[2020-09-23] MEDS: Loratadine 10 MG TAB PO SCH (08:48)
[2020-09-23] MEDS: guaiFENesin ER 600 MG TAB PO SCH (08:48)
[2020-09-23] MEDS: Cyanocobalamin (Vitamin B-12) 1,000 MCG TAB PO SCH (08:48)
[2020-09-23] MEDS: Tamsulosin HCl 0.4 MG CAP PO SCH (08:49)
[2020-09-23] MEDS: Montelukast Sodium 10 mg Tablet PO SCH (08:49)
[2020-09-23] MEDS: Saccharomyces boulardii 250 MG CAP PO SCH (08:49)
[2020-09-23] MEDS: Losartan 25 MG TAB PO SCH (08:49)
== END 2020-09-23 11:07 | disposition home or self-care (01) | DRG 177 ==
LOC: ERS 09:58 → T4-B 11:56
PROVIDERS: ADMIT Internal Medicine; ATTEND Internal Medicine
DX: J15.6 Pneumonia due to other Gram-negative bacteria (principal); J96.01 Acute respiratory failure with hypoxia; J44.1 Chronic obstructive pulmonary disease with (acute) exacerbation; J44.0 Chronic obstructive pulmonary disease with (acute) lower respiratory infection; C90.00 Multiple myeloma not having achieved remission; E87.1 Hypo-osmolality and hyponatremia; N40.0 Benign prostatic hyperplasia without lower urinary tract symptoms; E78.5 Hyperlipidemia, unspecified; K21.9 Gastro-esophageal reflux disease without esophagitis; E66.9 Obesity, unspecified; M10.9 Gout, unspecified; I10 Essential (primary) hypertension; D63.0 Anemia in neoplastic disease; E03.9 Hypothyroidism, unspecified; Z79.82 Long term (current) use of aspirin; Z79.51 Long term (current) use of inhaled steroids; Z79.899 Other long term (current) drug therapy; Z85.46 Personal history of malignant neoplasm of prostate; Z98.84 Bariatric surgery status; Z98.890 Other specified postprocedural states; Z87.891 Personal history of nicotine dependence; Z68.27 Body mass index [BMI] 27.0-27.9, adult
CPT/HCPCS: 36415; 71046; 71275; 80048; 80053; 80202; 81001; 83735; 83880; 84484; 85025; 87070; 87205; 93005; 94640; 96365; 96367; 96375; J0692; J1650; J1885; J2920; J3370; J3490; J7512; J7620; J7626; Q9967

== ENCOUNTER 2020-12-23 07:37 | Outpatient (CLI) | payer MEDICARE | END 2020-12-23 07:38 | disposition home or self-care (01) | LOC: PET 07:37 | PROVIDERS: ATTEND Internal Medicine Hematology & Oncology | DX: C90.00 Multiple myeloma not having achieved remission (principal); R91.8 Other nonspecific abnormal finding of lung field; C79.51 Secondary malignant neoplasm of bone; S22.079A Unspecified fracture of T9-T10 vertebra, initial encounter for closed fracture; S22.069A Unspecified fracture of T7-T8 vertebra, initial encounter for closed fracture; S22.42XA Multiple fractures of ribs, left side, initial encounter for closed fracture; Z98.890 Other specified postprocedural states | CPT/HCPCS: 78815; A9552 ==

== ENCOUNTER 2021-01-06 23:51 | Inpatient (IN) | payer MEDICARE ==
[2021-01-07] MEDS ORDERED: cefTRIAXone\\ROCEPHIN 2 GM VIAL ONE (00:32)
[2021-01-07 00:56] LABS: Hemoglobin 11.1 g/dL (14.0-18.0); Mean Corpuscular HGB CONC 32.7 g/dL (32.0-36.0); Mean Corpuscular Hemoglobin 29.4 pg (27.0-31.0); Mean Corpuscular Volume 89.8 fL (78.0-98.0); Platelet Count 279 thou/uL (130-400); RBC Distribution Width 19.7 % (11.5-14.5); Red Blood Cell (RBC) Count 3.78 mill/uL (4.70-6.10); White Blood Cell (WBC) Count 15.9 thou/uL (4.8-10.8)
[2021-01-07 01:17] LABS: Band 5 % (5-11); Elliptocytes SLIGHT = 2-5 cells (100X) (0-1/hpf); Eosinophils 1 % (0-10); Lymphocytes 6 % (21-51); MDiff Complete? YES; Monocytes 11 % (0-10); Neutrophil 77 % (42-75); Platelet Morphology Comment Appears Adequate
[2021-01-07 01:25] LABS: SARS-CoV-2 NAA Rapid Test Not Detected (NotDetected)
[2021-01-07 01:27] LABS: ALT (SGPT) 22 U/L (8-55); AST (SGOT) 17 U/L (5-34); Albumin 3.5 g/dL (3.4-4.8); Alkaline Phosphatase 151 U/L (40-110); Anion Gap 16 mmol/L (10-20); BUN (Urea Nitrogen) 24 mg/dL (8.4-25.7); Bilirubin, Total 0.5 mg/dL (0.2-1.2); Calc. Creatinine Clearance 0 mL/min (70-130); Calcium 7.9 mg/dL (7.8-10.44); Carbon Dioxide 18 mmol/L (23-31); Chloride 107 mmol/L (98-107); Globulin 2.5 g/dL (2.4-3.5); Glucose 121 mg/dL (83-110); Potassium 4.3 mmol/L (3.5-5.1); Sodium 137 mmol/L (136-145)
[2021-01-07] MEDS ORDERED: Vancomycin 1 GM/200 ML BAG ONE (02:58)
[2021-01-07] MEDS ORDERED: Azithromycin 500 MG VIAL ONE (03:54)
[2021-01-07 04:11] LABS: Lactic Acid 0.8 mmol/L (0.5-2.2)
[2021-01-07 05:39] VITALS: BMI 27.2
[2021-01-07] MEDS ORDERED: FLU VACC QS2021-22(65YR UP)/PF 240 MCG/0.7 ML SYRINGE IM ONE (09:00)
[2021-01-07] MEDS ORDERED: LENALIDOMIDE 25 MG PO SCH (09:00)
[2021-01-07] MEDS: Gabapentin 100 MG CAP PO SCH ×2 (09:52→20:05)
[2021-01-07] MEDS: Tamsulosin HCl 0.4 MG CAP PO SCH (09:53)
[2021-01-07] MEDS: HYDROcodone/Acetaminophen 10/325 mg Tablet PO PRN ×2 (09:53→20:05)
[2021-01-07] MEDS: Losartan 25 MG TAB PO SCH (09:53)
[2021-01-07] MEDS: Montelukast Sodium 10 mg Tablet PO SCH (09:53)
[2021-01-07] MEDS: Colchicine 0.6 MG TAB PO SCH (09:53)
[2021-01-07] MEDS: Atenolol 25 MG TAB PO SCH (09:53)
[2021-01-07] MEDS: Enoxaparin Sodium 40 MG/0.4 ML SYRINGE SC SCH (09:54)
[2021-01-07] MEDS: valACYclovir 500 MG TAB PO SCH (09:54)
[2021-01-07] MEDS: Cefepime 1 GM in Sodium Chloride 0.9% 100 ML IVPB SCH ×2 (09:54→20:05)
[2021-01-07] MEDS: Vancomycin 1 GM in Premix Bag 1 BAG IVPB SCH ×2 (09:54→21:03)
[2021-01-07] MEDS: Mometasone 200 MCG/Formoterol 5 MCG 120 PUFF INHALER INH SCH (19:17)
[2021-01-07] MEDS: Allopurinol 300 MG TAB PO SCH (20:05)
[2021-01-07] MEDS: Aspirin 81 mg Enteric Coated Tablet PO SCH (20:05)
[2021-01-07] MEDS: Rosuvastatin 5 MG TAB PO SCH (20:05)
[2021-01-08] MEDS: HYDROcodone/Acetaminophen 10/325 mg Tablet PO PRN ×4 (03:52→21:12)
[2021-01-08 06:14] LABS: #Basophils 0.1 thou/uL (0.0-0.2); #Eosinphils 0.3 thou/uL (0.0-0.7); #Lymphocytes 1.2 thou/uL (1.20-3.40); #Monocytes 1.4 thou/uL (0.11-0.59); #Neutrophils 7.1 thou/uL (1.40-6.50); %Basophils 0.9 % (0.0-1.0); %Eosinophils 2.8 % (0.0-10.0); %Lymphocytes 11.9 % (21.0-51.0); %Monocytes 14.2 % (0.0-10.0); %Neutrophils 70.3 % (42.0-75.0); Hemoglobin 10.4 g/dL (14.0-18.0); Mean Corpuscular HGB CONC 31.9 g/dL (32.0-36.0); Mean Corpuscular Hemoglobin 29.4 pg (27.0-31.0); Mean Platelet Volume 9.8 fL (7.4-10.4); Platelet Count 269 thou/uL (130-400); RBC Distribution Width 19.6 % (11.5-14.5); Red Blood Cell (RBC) Count 3.53 mill/uL (4.70-6.10)
[2021-01-08 06:30] LABS: Anion Gap 12 mmol/L (10-20); BUN (Urea Nitrogen) 13 mg/dL (8.4-25.7); Calc. Creatinine Clearance 92 mL/min (70-130); Calcium 7.5 mg/dL (7.8-10.44); Carbon Dioxide 24 mmol/L (23-31); Chloride 110 mmol/L (98-107); Glucose 96 mg/dL (83-110); Potassium 4.6 mmol/L (3.5-5.1); Sodium 141 mmol/L (136-145)
[2021-01-08] MEDS: Levothyroxine Sodium 25 MCG TAB PO SCH (06:43)
[2021-01-08] MEDS ORDERED: Tiotropium Bromide 4 GM INHALER IH SCH (09:00)
[2021-01-08] MEDS: Colchicine 0.6 MG TAB PO SCH (09:17)
[2021-01-08] MEDS: Tamsulosin HCl 0.4 MG CAP PO SCH (09:17)
[2021-01-08] MEDS: Gabapentin 100 MG CAP PO SCH ×2 (09:17→21:11)
[2021-01-08] MEDS: Vancomycin 1 GM in Premix Bag 1 BAG IVPB SCH ×2 (09:17→21:13)
[2021-01-08] MEDS: Losartan 25 MG TAB PO SCH (09:18)
[2021-01-08] MEDS: Montelukast Sodium 10 mg Tablet PO SCH (09:18)
[2021-01-08] MEDS: Atenolol 25 MG TAB PO SCH (09:18)
[2021-01-08] MEDS: Cefepime 1 GM in Sodium Chloride 0.9% 100 ML IVPB SCH ×2 (09:24→21:12)
[2021-01-08] MEDS: valACYclovir 500 MG TAB PO SCH (09:25)
[2021-01-08] MEDS: Tiotropium Bromide 4 GM INHALER IH SCH (09:25)
[2021-01-08] MEDS: Enoxaparin Sodium 40 MG/0.4 ML SYRINGE SC SCH (09:25)
[2021-01-08] MEDS: Mometasone 200 MCG/Formoterol 5 MCG 120 PUFF INHALER INH SCH ×2 (11:18→19:00)
[2021-01-08] MEDS ORDERED: Morphine 4 MG/ML VIAL SLOW IVP SCH (20:00)
[2021-01-08] MEDS: Rosuvastatin 5 MG TAB PO SCH (21:11)
[2021-01-08] MEDS: Allopurinol 300 MG TAB PO SCH (21:12)
[2021-01-08] MEDS: Aspirin 81 mg Enteric Coated Tablet PO SCH (21:12)
[2021-01-09] MEDS: Levothyroxine Sodium 25 MCG TAB PO SCH (05:34)
[2021-01-09 07:43] VITALS: TEMP 98
[2021-01-09] MEDS: HYDROcodone/Acetaminophen 10/325 mg Tablet PO PRN (07:43)
[2021-01-09] MEDS: Gabapentin 100 MG CAP PO SCH (07:45)
[2021-01-09] MEDS: Atenolol 25 MG TAB PO SCH (07:47)
[2021-01-09] MEDS: Tamsulosin HCl 0.4 MG CAP PO SCH (07:49)
[2021-01-09] MEDS: Colchicine 0.6 MG TAB PO SCH (07:49)
[2021-01-09] MEDS: Montelukast Sodium 10 mg Tablet PO SCH (07:49)
[2021-01-09] MEDS: Losartan 25 MG TAB PO SCH (07:49)
[2021-01-09] MEDS: Enoxaparin Sodium 40 MG/0.4 ML SYRINGE SC SCH (07:49)
[2021-01-09] MEDS: Vancomycin 1 GM in Premix Bag 1 BAG IVPB SCH (09:49)
[2021-01-09] MEDS: Cefepime 1 GM in Sodium Chloride 0.9% 100 ML IVPB SCH (11:11)
[2021-01-09] MEDS: valACYclovir 500 MG TAB PO SCH (11:12)
[2021-01-09] MEDS: Tiotropium Bromide 4 GM INHALER IH SCH (11:12)
[2021-01-09] MEDS: Mometasone 200 MCG/Formoterol 5 MCG 120 PUFF INHALER INH SCH (11:23)
[2021-01-09 11:28] VITALS: BP 143/73
== END 2021-01-09 13:30 | disposition home or self-care (01) | DRG 871 ==
LOC: ERS 23:51 → SJJU 01-07 02:13
PROVIDERS: ADMIT Internal Medicine; ATTEND Internal Medicine
DX: A41.9 Sepsis, unspecified organism (principal); Z20.822 Contact with and (suspected) exposure to COVID-19; J18.9 Pneumonia, unspecified organism; C90.00 Multiple myeloma not having achieved remission; J44.0 Chronic obstructive pulmonary disease with (acute) lower respiratory infection; C79.51 Secondary malignant neoplasm of bone; E78.5 Hyperlipidemia, unspecified; M10.9 Gout, unspecified; I25.10 Atherosclerotic heart disease of native coronary artery without angina pectoris; C61 Malignant neoplasm of prostate; Z87.891 Personal history of nicotine dependence; Z79.899 Other long term (current) drug therapy; Z79.82 Long term (current) use of aspirin; Z79.890 Hormone replacement therapy; Z79.52 Long term (current) use of systemic steroids; Z98.1 Arthrodesis status
CPT/HCPCS: 36415; 71045; 80048; 83605; 85025; 87040; 94664; 96365; 96367; 96375; J0456; J0692; J0696; J1650; J3370; J3490; U0002

== ENCOUNTER 2021-05-04 15:39 | Inpatient (IN) | payer MEDICARE ==
[~2021-05-04 15:39] MED LIST changes: +Iopamidol 370 76% 100 ML VIAL ONE; -Iopamidol-370 76% 500 ML 1 ML ONE
[2021-05-04 16:14] LABS: Hemoglobin 13.2 g/dL (14.0-18.0); Mean Corpuscular HGB CONC 32.5 g/dL (32.0-36.0); Mean Corpuscular Hemoglobin 30.8 pg (27.0-31.0); Mean Corpuscular Volume 94.8 fL (78.0-98.0); Mean Platelet Volume 10.1 fL (7.4-10.4); Platelet Count 138 thou/uL (130-400); RBC Distribution Width 20.1 % (11.5-14.5); Red Blood Cell (RBC) Count 4.27 mill/uL (4.70-6.10)
[2021-05-04 16:34] LABS: ALT (SGPT) 18 U/L (8-55); AST (SGOT) 18 U/L (5-34); Albumin 3.5 g/dL (3.4-4.8); Alkaline Phosphatase 138 U/L (40-110); Anion Gap 21 mmol/L (10-20); BUN (Urea Nitrogen) 15 mg/dL (8.4-25.7); Bilirubin, Total 0.2 mg/dL (0.2-1.2); Calc. Creatinine Clearance 0 mL/min (70-130); Calcium 8.9 mg/dL (7.8-10.44); Carbon Dioxide 15 mmol/L (23-31); Chloride 110 mmol/L (98-107); Globulin 3.4 g/dL (2.4-3.5); Glucose 97 mg/dL (83-110); Potassium 4.1 mmol/L (3.5-5.1); Protein, Total 6.9 g/dL (5.8-8.1); Sodium 142 mmol/L (136-145)
[2021-05-04 16:35] LABS: Anisocytosis SLIGHT = 6-15 cells (100X) (0-5/hpf); Band 6 % (5-11); Eosinophils 4 % (0-10); Lymphocytes 13 % (21-51); MDiff Complete? YES; Monocytes 14 % (0-10); Neutrophil 59 % (42-75); Ovalocytes SLIGHT = 2-5 cells (100X) (0-1/hpf); Platelet Morphology Comment Appears Adequate; Poikilocytosis SLIGHT = 6-15 cells (100X) (0-5/hpf); Polychromasia SLIGHT = 2-3 cells (100X) (0-2/hpf); Reactive Lymphocytes 2 % (0-10); Schistocytes SLIGHT = 2-5 cells (100X) (0-1/hpf); Spherocytes SLIGHT = 1-5 cells (100X) (None Seen); Tear Drops SLIGHT = 2-5 cells (100X) (0-1/hpf)
[2021-05-04] MEDS ORDERED: Acetaminophen 325 MG TAB PO PRN (19:18)
[2021-05-04] MEDS ORDERED: Loperamide HCl 2 MG CAP PO PRN (19:42)
[2021-05-04] MEDS ORDERED: diphenhydrAMINE 25 MG CAP PO PRN (19:42)
[2021-05-04 20:04] VITALS: BMI 24.2
[2021-05-04] MEDS ORDERED: oxyCODONE 5 MG TAB PO PRN (20:05)
[2021-05-04] MEDS: Lactated Ringer's 1,000 ML IV SCH (20:30)
[2021-05-04] MEDS ORDERED: Non-Formulary Item 1 EACH (Fluticasone/Salmeterol [Advair Diskus 250/50] 1 EACH Blst.W.De IH SCH (21:00)
[2021-05-04] MEDS: Ondansetron ODT 8 MG TAB PO SCH (21:52)
[2021-05-04] MEDS: Rosuvastatin 5 MG TAB PO SCH (21:52)
[2021-05-04] MEDS: valACYclovir 500 MG TAB PO SCH (21:52)
[2021-05-04 22:18] LABS: Magnesium 1.5 mg/dL (1.6-2.6)
[2021-05-05 00:14] LABS: SARS-CoV-2 PCR by NAA Not Detected (NotDetected)
[2021-05-05] MEDS: Ipratropium Bromide 2.5 ml Neb NEB SCH ×4 (00:52→19:14)
[2021-05-05] MEDS ORDERED: Magnesium 2 GM/50 ML 2 GM in Premix Bag 1 BAG IVPB SCH (02:00)
[2021-05-05 04:08] LABS: Anion Gap 10 mmol/L (10-20); BUN (Urea Nitrogen) 12 mg/dL (8.4-25.7); Calc. Creatinine Clearance 88 mL/min (70-130); Calcium 7.9 mg/dL (7.8-10.44); Chloride 114 mmol/L (98-107); Glucose 91 mg/dL (83-110); Sodium 142 mmol/L (136-145)
[2021-05-05 04:15] LABS: Carbon Dioxide 22 mmol/L (23-31)
[2021-05-05 04:22] LABS: Eosinophils 3 % (0-10); Hemoglobin 10.7 g/dL (14.0-18.0); Hypochromia SLIGHT = 6-15 cells (100X) (0-5/hpf); Lymphocytes 23 % (21-51); MDiff Complete? YES; Mean Corpuscular Hemoglobin 30.4 pg (27.0-31.0); Mean Corpuscular Volume 95.1 fL (78.0-98.0); Mean Platelet Volume 9.8 fL (7.4-10.4); Monocytes 10 % (0-10); Neutrophil 64 % (42-75); Platelet Count 102 thou/uL (130-400); Platelet Morphology Comment Appears Decreased; RBC Distribution Width 20.1 % (11.5-14.5); Red Blood Cell (RBC) Count 3.53 mill/uL (4.70-6.10); White Blood Cell (WBC) Count 6.9 thou/uL (4.8-10.8)
[2021-05-05] MEDS: Levothyroxine Sodium 25 MCG TAB PO SCH (05:38)
[2021-05-05] MEDS: Ondansetron ODT 8 MG TAB PO SCH ×4 (05:38→21:38)
[2021-05-05] MEDS ORDERED: Non-Formulary Item 1 EACH (Tiotropium Bromide 4 GM Inhaler) PO SCH (09:00)
[2021-05-05] MEDS ORDERED: Non-Formulary Item 1 EACH (Lansoprazole [Prevacid] 30 MG Capsule.Dr) PO SCH (09:00)
[2021-05-05] MEDS ORDERED: Enoxaparin Sodium 40 MG/0.4 ML SYRINGE SC SCH (09:00)
[2021-05-05] MEDS: Loratadine 10 MG TAB PO SCH (09:06)
[2021-05-05] MEDS: valACYclovir 500 MG TAB PO SCH ×2 (09:07→21:36)
[2021-05-05] MEDS: predniSONE 20 MG TAB PO SCH (09:07)
[2021-05-05] MEDS: Tamsulosin HCl 0.4 MG CAP PO SCH (09:07)
[2021-05-05] MEDS: Fluconazole 100 MG TAB PO SCH (09:07)
[2021-05-05] MEDS: Ipratropium Oral Inhaler INH SCH ×3 (10:00→19:12)
[2021-05-05] MEDS: Lactated Ringer's 1,000 ML IV SCH (10:01)
[2021-05-05] MEDS: Mometasone 200 MCG/Formoterol 5 MCG 120 PUFF INHALER INH SCH ×2 (10:01→19:15)
[2021-05-05] MEDS: Rosuvastatin 5 MG TAB PO SCH (21:36)
[2021-05-06] MEDS: Ipratropium Bromide 2.5 ml Neb NEB SCH ×2 (01:28→07:09)
[2021-05-06] MEDS: Ondansetron ODT 8 MG TAB PO SCH (04:28)
[2021-05-06] MEDS: Levothyroxine Sodium 25 MCG TAB PO SCH (05:35)
[2021-05-06] MEDS: Mometasone 200 MCG/Formoterol 5 MCG 120 PUFF INHALER INH SCH (07:03)
[2021-05-06] MEDS: Ipratropium Oral Inhaler INH SCH (07:08)
[2021-05-06] MEDS: valACYclovir 500 MG TAB PO SCH (09:37)
[2021-05-06] MEDS: Fluconazole 100 MG TAB PO SCH (09:37)
[2021-05-06] MEDS: Loratadine 10 MG TAB PO SCH (09:38)
[2021-05-06] MEDS: Tamsulosin HCl 0.4 MG CAP PO SCH (09:38)
[2021-05-06] MEDS: predniSONE 20 MG TAB PO SCH (09:38)
[2021-05-06 11:36] VITALS: BP 142/65; TEMP 98.4
== END 2021-05-06 11:52 | disposition home or self-care (01) | DRG 309 ==
LOC: ERS 15:39 → 2NO 18:25
PROVIDERS: ADMIT Family Medicine; ATTEND Family Medicine
DX: I49.5 Sick sinus syndrome (principal); Z94.81 Bone marrow transplant status; C90.00 Multiple myeloma not having achieved remission; I31.3 Pericardial effusion (noninflammatory); G47.33 Obstructive sleep apnea (adult) (pediatric); I10 Essential (primary) hypertension; E78.5 Hyperlipidemia, unspecified; R91.8 Other nonspecific abnormal finding of lung field; Z20.822 Contact with and (suspected) exposure to COVID-19; M10.9 Gout, unspecified; J44.9 Chronic obstructive pulmonary disease, unspecified; K21.9 Gastro-esophageal reflux disease without esophagitis; Z85.46 Personal history of malignant neoplasm of prostate; Z79.899 Other long term (current) drug therapy; Z98.1 Arthrodesis status; Z98.890 Other specified postprocedural states; Z87.891 Personal history of nicotine dependence
CPT/HCPCS: 36415; 71275; 80048; 80053; 83735; 83880; 84443; 84484; 85025; 87040; 93005; 93306; 94640; J3475; J7120; J7512; J7620; Q0162; Q9967; U0003; U0005

== ENCOUNTER 2021-08-08 09:29 | Outpatient (CLI) | payer MEDICARE | END 2021-08-08 09:30 | disposition home or self-care (01) | LOC: RAD 09:29 | PROVIDERS: ATTEND Internal Medicine Critical Care Medicine | DX: R06.00 Dyspnea, unspecified (principal) | CPT/HCPCS: 71046 ==

== ENCOUNTER 2021-10-25 13:04 | Inpatient (IN) | payer MEDICARE ==
[2021-10-25] MEDS ORDERED: Cefepime 2 GM VIAL ONE (13:18)
[2021-10-25 13:39] LABS: #Monocytes 0.4 thou/uL (0.11-0.59); #Neutrophils 4.8 thou/uL (1.40-6.50); %Basophils 0.1 % (0.0-1.0); %Eosinophils 0.6 % (0.0-10.0); %Lymphocytes 15.6 % (21.0-51.0); %Monocytes 7.1 % (0.0-10.0); %Neutrophils 76.6 % (42.0-75.0); Hemoglobin 12.5 g/dL (14.0-18.0); Mean Corpuscular HGB CONC 33.1 g/dL (32.0-36.0); Mean Corpuscular Hemoglobin 33.1 pg (27.0-31.0); RBC Distribution Width 16.5 % (11.5-14.5); Red Blood Cell (RBC) Count 3.77 mill/uL (4.70-6.10); White Blood Cell (WBC) Count 6.2 thou/uL (4.8-10.8)
[2021-10-25 13:54] LABS: INR-International Normal Ratio 1.2; Prothrombin Time 15.2 sec (12.0-14.7)
[2021-10-25 13:55] LABS: PTT 34.9 sec (22.9-36.1)
[2021-10-25 13:56] LABS: MDiff Complete? YES; Macrocytosis SLIGHT = 6-15 cells (100X) (0-5/hpf); Mean Platelet Volume 9.3 fL (7.4-10.4); Ovalocytes SLIGHT = 2-5 cells (100X) (0-1/hpf); Platelet Count 77 thou/uL (130-400); Platelet Morphology Comment Appears Decreased; Polychromasia SLIGHT = 2-3 cells (100X) (0-2/hpf)
[2021-10-25 14:00] LABS: ALT (SGPT) 14 U/L (8-55); AST (SGOT) 16 U/L (5-34); Albumin 3.4 g/dL (3.4-4.8); Alkaline Phosphatase 81 U/L (40-110); Anion Gap 10 mmol/L (10-20); BUN (Urea Nitrogen) 18 mg/dL (8.4-25.7); Bilirubin, Total 1.1 mg/dL (0.2-1.2); CK (CPK) 55 U/L (30-200); Calc. Creatinine Clearance 0 mL/min (70-130); Calcium 7.5 mg/dL (7.8-10.44); Carbon Dioxide 22 mmol/L (23-31); Chloride 107 mmol/L (98-107); Estimated GFR 68; Globulin 2.6 g/dL (2.4-3.5); Glucose 112 mg/dL (83-110); Magnesium 1.3 mg/dL (1.6-2.6); Potassium 4.1 mmol/L (3.5-5.1); Sodium 135 mmol/L (136-145)
[2021-10-25] MEDS ORDERED: Vancomycin 1 GM/200 ML BAG ONE (14:04)
[2021-10-25 14:51] LABS: SARS-CoV-2 NAA Rapid Test Not Detected (NotDetected)
[2021-10-25] MEDS ORDERED: Magnesium 2 GM/50 ML BAG (IN WATER) ONE (14:57)
[2021-10-25] MEDS ORDERED: Ondansetron PF 4 MG/2 ML Vial IVP PRN (15:03)
[2021-10-25] MEDS ORDERED: Acetaminophen 325 MG TAB PO PRN (15:03)
[2021-10-25] MEDS ORDERED: diphenhydrAMINE 25 MG CAP PO PRN (15:11)
[2021-10-25] MEDS ORDERED: methylPREDNISolone Sod Succ/PF 125 MG/2 ML VIAL IVP SCH ×2 (15:15→17:00)
[2021-10-25 16:12] VITALS: BMI 27.4
[2021-10-25] MEDS ORDERED: Albuterol Sulfate 2.5 mg/3 ml Neb NEB PRN (16:30)
[2021-10-25] MEDS ORDERED: oxyCODONE 5 MG TAB PO PRN (16:42)
[2021-10-25] MEDS ORDERED: Vancomycin 1 GM in Premix Bag 1 BAG IVPB SCH (16:45)
[2021-10-25 16:46] LABS: Actual Bicarbonate (HCO3a) 16.3 mEq/L (22-28); Base Excess (BEa) -7.3 mEq/L (-2.0 to +3.0); CO2 Tension 27.4 mmHg (35.0-45.0); Calcium, Ionized (arterial) 1.02 mmol/L (1.12-1.30); Carboxyhemoglobin (COHb) 0.8 gm% (0.0-3.0); Hemoglobin (Hb) 11.4 g/dL (14.0-18.0); O2 Tension (PaO2), arterial 66.1 mmHg (> 70.0); Potassium - ABG Lab 3.46 mmol/L (3.70-5.30); pH, Arterial 7.39 (7.35-7.45)
[2021-10-25 16:50] LABS: Puncture Site RRA
[2021-10-25] MEDS: methylPREDNISolone Sod Succ 40 MG VIAL IVP SCH (17:43)
[2021-10-25] MEDS ORDERED: Mometasone/Formoterol 200/5 60 PUFF INH SCH (18:30)
[2021-10-25] MEDS ORDERED: Ipratropium Bromide 2.5 ml Neb NEB SCH (19:00)
[2021-10-25] MEDS: Azithromycin 500 MG in Sodium Chloride 0.9% 250 ML 250 ML IVPB SCH (19:06)
[2021-10-25] MEDS: Rosuvastatin 5 MG TAB PO SCH (20:25)
[2021-10-25] MEDS: valACYclovir 500 MG TAB PO SCH (20:26)
[2021-10-25] MEDS: guaiFENesin/DM ER PO SCH (20:26)
[2021-10-25 20:45] LABS: Legionella Urinary Ag Negative (Negative); Strep pneumo Urine Ag NEGATIVE (NEGATIVE)
[2021-10-25] MEDS ORDERED: Famotidine 20 MG TAB PO SCH (21:00)
[2021-10-26] MEDS: Cefepime 1 GM in Sodium Chloride 0.9% 100 ML IVPB SCH ×2 (01:03→12:14)
[2021-10-26 05:31] LABS: Hemoglobin 10.7 g/dL (14.0-18.0); Mean Corpuscular HGB CONC 32.1 g/dL (32.0-36.0); Mean Corpuscular Hemoglobin 32.6 pg (27.0-31.0); Mean Platelet Volume 9.7 fL (7.4-10.4); Platelet Count 61 thou/uL (130-400); RBC Distribution Width 16.6 % (11.5-14.5); White Blood Cell (WBC) Count 5.4 thou/uL (4.8-10.8)
[2021-10-26 05:48] LABS: Anion Gap 11 mmol/L (10-20); BUN (Urea Nitrogen) 20 mg/dL (8.4-25.7); Calc. Creatinine Clearance 80 mL/min (70-130); Carbon Dioxide 18 mmol/L (23-31); Chloride 109 mmol/L (98-107); Estimated GFR 89; Glucose 159 mg/dL (83-110); Magnesium 1.9 mg/dL (1.6-2.6); Potassium 3.4 mmol/L (3.5-5.1); Sodium 135 mmol/L (136-145)
[2021-10-26] MEDS: Levothyroxine Sodium 50 MCG TAB PO SCH (06:29)
[2021-10-26] MEDS ORDERED: Potassium Chloride 20 MEQ TAB PO SCH (07:30)
[2021-10-26] MEDS: Tamsulosin HCl 0.4 MG CAP PO SCH (08:40)
[2021-10-26] MEDS: guaiFENesin/DM ER PO SCH ×2 (08:40→20:01)
[2021-10-26] MEDS: valACYclovir 500 MG TAB PO SCH ×2 (08:40→20:01)
[2021-10-26] MEDS: Loratadine 10 MG TAB PO SCH (08:40)
[2021-10-26] MEDS ORDERED: Vancomycin 1.5 GRAM/300 ML BAG 1.5 GM in Premix Bag 1 BAG IVPB SCH (14:00)
[2021-10-26] MEDS: Azithromycin 500 MG in Sodium Chloride 0.9% 250 ML 250 ML IVPB SCH (17:38)
[2021-10-26] MEDS: methylPREDNISolone Sod Succ 40 MG VIAL IVP SCH (17:39)
[2021-10-26] MEDS: ADVAIR FS SCH ×2 (19:36→20:01)
[2021-10-26] MEDS: Rosuvastatin 5 MG TAB PO SCH (20:01)
[2021-10-27] MEDS: Cefepime 1 GM in Sodium Chloride 0.9% 100 ML IVPB SCH ×2 (01:26→12:13)
[2021-10-27] MEDS: Levothyroxine Sodium 50 MCG TAB PO SCH (05:34)
[2021-10-27] MEDS: valACYclovir 500 MG TAB PO SCH ×2 (08:34→20:23)
[2021-10-27] MEDS: Tamsulosin HCl 0.4 MG CAP PO SCH (08:34)
[2021-10-27] MEDS: guaiFENesin/DM ER PO SCH ×2 (08:34→20:23)
[2021-10-27] MEDS: Loratadine 10 MG TAB PO SCH (08:34)
[2021-10-27] MEDS: ADVAIR FS SCH ×2 (08:35→20:24)
[2021-10-27 13:44] LABS: Vancomycin, Trough 10.8 ug/mL
[2021-10-27] MEDS: Azithromycin 500 MG in Sodium Chloride 0.9% 250 ML 250 ML IVPB SCH (17:42)
[2021-10-27] MEDS: methylPREDNISolone Sod Succ 40 MG VIAL IVP SCH (17:42)
[2021-10-27] MEDS: Rosuvastatin 5 MG TAB PO SCH (20:23)
[2021-10-28] MEDS: Cefepime 1 GM in Sodium Chloride 0.9% 100 ML IVPB SCH (00:17)
[2021-10-28 04:45] LABS: #Lymphocytes 0.4 thou/uL (1.20-3.40); #Monocytes 0.2 thou/uL (0.11-0.59); #Neutrophils 4.3 thou/uL (1.40-6.50); %Eosinophils 0.1 % (0.0-10.0); %Lymphocytes 7.8 % (21.0-51.0); %Monocytes 4.7 % (0.0-10.0); %Neutrophils 87.4 % (42.0-75.0); Hemoglobin 9.6 g/dL (14.0-18.0); Mean Corpuscular HGB CONC 33.4 g/dL (32.0-36.0); Mean Corpuscular Hemoglobin 33.2 pg (27.0-31.0); Mean Corpuscular Volume 99.5 fL (78.0-98.0); Mean Platelet Volume 9.2 fL (7.4-10.4); Platelet Count 73 thou/uL (130-400); RBC Distribution Width 17.1 % (11.5-14.5); Red Blood Cell (RBC) Count 2.88 mill/uL (4.70-6.10); White Blood Cell (WBC) Count 4.9 thou/uL (4.8-10.8)
[2021-10-28 04:58] LABS: Anion Gap 10 mmol/L (10-20); BUN (Urea Nitrogen) 24 mg/dL (8.4-25.7); Calc. Creatinine Clearance 89 mL/min (70-130); Calcium 6.9 mg/dL (7.8-10.44); Carbon Dioxide 20 mmol/L (23-31); Chloride 116 mmol/L (98-107); Estimated GFR 92; Glucose 136 mg/dL (83-110); Sodium 142 mmol/L (136-145)
[2021-10-28] MEDS: Levothyroxine Sodium 50 MCG TAB PO SCH (05:41)
[2021-10-28] MEDS: Loratadine 10 MG TAB PO SCH (10:13)
[2021-10-28] MEDS: Tamsulosin HCl 0.4 MG CAP PO SCH (10:13)
[2021-10-28] MEDS: ADVAIR FS SCH (10:13)
[2021-10-28] MEDS: valACYclovir 500 MG TAB PO SCH (10:14)
[2021-10-28] MEDS: guaiFENesin/DM ER PO SCH (10:14)
[2021-10-28 12:46] VITALS: BP 146/70; TEMP 97.9
[2021-10-28] MEDS ORDERED: Cefepime 2 GM in Sodium Chloride 0.9% 100 ML IVPB SCH (13:00)
== END 2021-10-28 15:30 | disposition home or self-care (01) | DRG 871 ==
LOC: ERS 13:04 → 2SW 14:38
PROVIDERS: ADMIT Internal Medicine; ATTEND Internal Medicine
DX: A41.9 Sepsis, unspecified organism (principal); Z20.822 Contact with and (suspected) exposure to COVID-19; J18.9 Pneumonia, unspecified organism; J96.21 Acute and chronic respiratory failure with hypoxia; J44.1 Chronic obstructive pulmonary disease with (acute) exacerbation; J44.0 Chronic obstructive pulmonary disease with (acute) lower respiratory infection; E87.1 Hypo-osmolality and hyponatremia; Z94.81 Bone marrow transplant status; C90.01 Multiple myeloma in remission; D84.89 Other immunodeficiencies; R65.20 Severe sepsis without septic shock; E83.42 Hypomagnesemia; E78.5 Hyperlipidemia, unspecified; M10.9 Gout, unspecified; E03.9 Hypothyroidism, unspecified; N40.0 Benign prostatic hyperplasia without lower urinary tract symptoms; K21.9 Gastro-esophageal reflux disease without esophagitis; I48.91 Unspecified atrial fibrillation; I10 Essential (primary) hypertension; Z98.1 Arthrodesis status; Z98.890 Other specified postprocedural states; Z85.46 Personal history of malignant neoplasm of prostate; Z87.891 Personal history of nicotine dependence; Z79.899 Other long term (current) drug therapy; Z79.890 Hormone replacement therapy; Z79.52 Long term (current) use of systemic steroids; Z80.9 Family history of malignant neoplasm, unspecified; Z82.49 Family history of ischemic heart disease and other diseases of the circulatory system; Z83.6 Family history of other diseases of the respiratory system; Z90.79 Acquired absence of other genital organ(s)
CPT/HCPCS: 36415; 36416; 36600; 71045; 80048; 80053; 80202; 82550; 82805; 83605; 83735; 83880; 84484; 85025; 85027; 85610; 85730; 87040; 87070; 87081; 87205; 87449; 87899; 94640; 94760; J0456; J0692; J2920; J3370; J3475; J3490; J7050; J7620

== ENCOUNTER 2021-11-29 10:23 | Outpatient (CLI) | payer MEDICARE | END 2021-11-29 10:24 | disposition home or self-care (01) | LOC: RAD 10:23 | PROVIDERS: ATTEND Internal Medicine Critical Care Medicine | DX: R06.00 Dyspnea, unspecified (principal); J98.4 Other disorders of lung | CPT/HCPCS: 71046 ==

== ENCOUNTER 2022-06-24 06:31 | Inpatient (IN) | payer MEDICARE ==
[2022-06-24] MEDS ORDERED: cefTRIAXone (ROCEPHIN) 2 GM VIAL ONE (07:20)
[2022-06-24 07:23] LABS: #Lymphocytes 0.9 thou/uL (1.20-3.40); #Monocytes 0.3 thou/uL (0.11-0.59); #Neutrophils 2.6 thou/uL (1.40-6.50); %Basophils 0.2 % (0.0-1.0); %Eosinophils 0.6 % (0.0-10.0); %Lymphocytes 23.6 % (21.0-51.0); %Monocytes 7.1 % (0.0-10.0); %Neutrophils 68.4 % (42.0-75.0); Hemoglobin 12.3 g/dL (14.0-18.0); Mean Corpuscular HGB CONC 33.2 g/dL (32.0-36.0); Mean Corpuscular Hemoglobin 35.1 pg (27.0-31.0); White Blood Cell (WBC) Count 3.9 10x3/uL (4.8-10.8)
[2022-06-24] MEDS ORDERED: Vancomycin 1 GM/200 ML (FROZEN) BAG ONE (07:25)
[2022-06-24 07:43] LABS: ALT (SGPT) 18 U/L (8-55); AST (SGOT) 22 U/L (5-34); Albumin 3.4 g/dL (3.4-4.8); Alkaline Phosphatase 94 U/L (40-110); Anion Gap 12 mmol/L (10-20); BUN (Urea Nitrogen) 18 mg/dL (8.4-25.7); Bilirubin, Total 0.8 mg/dL (0.2-1.2); Calc. Creatinine Clearance 0 mL/min (70-130); Calcium 8.5 mg/dL (7.8-10.44); Carbon Dioxide 16 mmol/L (23-31); Chloride 110 mmol/L (98-107); Estimated GFR 69; Globulin 3.2 g/dL (2.4-3.5); Glucose 124 mg/dL (83-110); Potassium 3.8 mmol/L (3.5-5.1); Protein, Total 6.6 g/dL (5.8-8.1); Sodium 134 mmol/L (136-145)
[2022-06-24 08:06] LABS: MDiff Complete? YES; Macrocytosis SLIGHT = 6-15 cells (100X) (0-5/hpf); Mean Platelet Volume 8.8 fL (7.4-10.4); Platelet Count 91 10x3/uL (130-400); Platelet Morphology Comment Appears Decreased; Polychromasia SLIGHT = 2-3 cells (100X) (0-2/hpf); Tear Drops SLIGHT = 2-5 cells (100X) (0-1/hpf)
[2022-06-24] MEDS ORDERED: Azithromycin 500 MG VIAL ONE (09:21)
[2022-06-24] MEDS ORDERED: Rocuronium Bromide 10 MG/ML (10ML VIAL) ONE (10:33)
[2022-06-24] MEDS ORDERED: Ventilator Sedation Protocol 1 EACH FS SCH (10:47)
[2022-06-24] MEDS ORDERED: Midazolam HCl 2 mg/2 ml Vial ONE ×2 (10:47→13:06)
[2022-06-24] MEDS ORDERED: Sodium Chloride 0.9% 1,000 ML IV SCH ×2 (11:00→12:30)
[2022-06-24 11:09] LABS: Troponin I Less than 0.010 ng/mL (< 0.028)
[2022-06-24 11:12] LABS: Actual Bicarbonate (HCO3a) 15.7 mEq/L (22-28); Base Excess (BEa) -11.7 mEq/L (-2.0 to +3.0); CO2 Tension 41.4 mmHg (35.0-45.0); Calcium, Ionized (arterial) 1.07 mmol/L (1.12-1.30); Carboxyhemoglobin (COHb) 0.7 gm% (0.0-3.0); Hemoglobin (Hb) 11.6 g/dL (14.0-18.0); O2 Tension (PaO2), arterial 178.6 mmHg (> 70.0); Potassium - ABG Lab 3.45 mmol/L (3.70-5.30)
[2022-06-24 11:15] LABS: Puncture Site Right Radial
[2022-06-24] MEDS ORDERED: Propofol BOLUS 1,000 MG/100 ML VIAL IV PRN (11:15)
[2022-06-24] MEDS ORDERED: Morphine 2 MG/ML VIAL SLOW IVP PRN (11:15)
[2022-06-24] MEDS ORDERED: Fentanyl BOLUS 250 ML IVPB PRN (11:15)
[2022-06-24] MEDS ORDERED: DISCONTINUE PREVIOUS NARCOTIC PAIN MEDICATIONS AND BENZODIAZEPINES FS SCH (11:15)
[2022-06-24 12:12] LABS: Bilirubin Negative (Negative); Blood, Urine Trace (Negative); Clarity Clear (Clear); Glucose, Urine (Dipstick) Normal (Negative); Ketone, Urine Negative (Negative); Leukocyte Negative Leu/uL (Negative); Nitrite Negative (Negative); Protein, Urine (Dipstick) 10 mg/dL (Neg-Trace); RBC/HPF 0-3 HPF (0-3); Specific Gravity, Urine 1.015 (1.002-1.036); Squamous Epithelial 0-3 HPF (0-3); Urobilinogen Normal mg/dL (Less than 2); WBC/HPF 0-3 HPF (0-3); pH, Urine 5.5 (5.0-9.0)
[2022-06-24 12:13] LABS: Bacteria/HPF 1+ HPF (None Seen)
[2022-06-24] MEDS ORDERED: Ipratropium/Albuterol 3 ML NEB NEB SCH (12:30)
[2022-06-24] MEDS ORDERED: Lidocaine 4% PF 5 ML AMP NEB SCH (12:30)
[2022-06-24] MEDS ORDERED: Meropenem 1 GM in Sodium Chloride 0.9% 100 ML IVPB SCH ×4 (13:00→23:59)
[2022-06-24] MEDS: Propofol 1,000 MG/100 ML VIAL IV PRN (13:05)
[2022-06-24] MEDS: NOREPINEPHRINE 8 MG/250 ML-D5W 250 ML ONE ×2 (13:12→14:11)
[2022-06-24 13:36] LABS: Troponin I 0.017 ng/mL (< 0.028)
[2022-06-24] MEDS: Lorazepam 2 MG/ML VIAL SLOW IVP PRN (13:42)
[2022-06-24] MEDS ORDERED: Sodium Bicarb 50 MEQ/50 ML VIAL IVP SCH (14:30)
[2022-06-24] MEDS: Sodium Chloride 0.9% 1,000 ML IV SCH (14:45)
[2022-06-24] MEDS ORDERED: Vancomycin 1 GM in Premix Bag 1 BAG IVPB SCH ×3 (15:00→21:00)
[2022-06-24 15:14] LABS: Bacteria/HPF 2+ HPF (None Seen); Bilirubin Negative (Negative); Blood, Urine 1+ (Negative); CAUTI Indications for Culture Immunosuppressed; Clarity Turbid (Clear); Glucose, Urine (Dipstick) Normal (Negative); Ketone, Urine Negative (Negative); Leukocyte Negative Leu/uL (Negative); Nitrite Negative (Negative); Protein, Urine (Dipstick) 70 mg/dL (Neg-Trace); RBC/HPF 0-3 HPF (0-3); Squamous Epithelial 0-3 HPF (0-3); Urobilinogen Normal mg/dL (Less than 2); pH, Urine 5.5 (5.0-9.0)
[2022-06-24 15:18] LABS: Urine Culture Reflex Yes Yes
[2022-06-24] MEDS ORDERED: Vecuronium 10 MG VIAL ONE (15:22)
[2022-06-24] MEDS: Vecuronium 10 MG VIAL IV PRN ×2 (15:25→19:53)
[2022-06-24 15:28] LABS: Legionella Urinary Ag Negative (Negative); Strep pneumo Urine Ag NEGATIVE (NEGATIVE)
[2022-06-24 15:46] LABS: SARS-CoV-2 NAA Rapid Test Not Detected (NotDetected)
[2022-06-24 16:20] LABS: BF Color Colorless; BF WBC/Nonhematics Ct.-Manual 1006 /cu.mm; Body Fluid Source Bronchioalveol Lavag; Clarity Hazy (Clear); Tube # EDTA
[2022-06-24 16:21] LABS: BF RBC Count - Manual 242 /cu.mm
[2022-06-24 16:22] LABS: BF Segmented Neutrophils 73 %; Cell Count Non Hematic 22 %; Lymphocytes 5 %
[2022-06-24] MEDS: Acetaminophen 325 MG TAB PO PRN (16:41)
[2022-06-24] MEDS: Arformoterol 15 MCG/2 ML NEB NEB SCH (18:43)
[2022-06-24] MEDS: NOREPINEPHRINE 8 MG/250 ML-D5W 250 ML IVPB SCH (19:53)
[2022-06-24] MEDS ORDERED: Cefepime 1 GM in Sodium Chloride 0.9% 100 ML IVPB SCH (21:00)
[2022-06-24] MEDS: Doxycycline 100 MG in Sodium Chloride 0.9% 100 ML IVPB SCH (21:25)
[2022-06-25] MEDS: NOREPINEPHRINE 8 MG/250 ML-D5W 250 ML IVPB SCH ×4 (00:39→22:48)
[2022-06-25] MEDS: Sodium Chloride 0.9% 1,000 ML IV SCH (01:07)
[2022-06-25] MEDS: VANCOMYCIN 750 MG/250 ML BAG 750 MG in Sodium Chloride 0.9% 250 ML 250 ML IVPB SCH ×2 (03:47→05:01)
[2022-06-25] MEDS: Vancomycin HCl 750 MG in Sodium Chloride 0.9% 250 ML 250 ML IVPB SCH ×2 (04:08→17:22)
[2022-06-25] MEDS ORDERED: Fentanyl CADD 100 ML ONE (04:31)
[2022-06-25] MEDS: Fentanyl CADD 100 ML IV SCH ×2 (04:45→21:41)
[2022-06-25 04:48] LABS: Hemoglobin 11.4 g/dL (14.0-18.0); Mean Corpuscular HGB CONC 31.8 g/dL (32.0-36.0); Mean Corpuscular Hemoglobin 34.6 pg (27.0-31.0); Mean Platelet Volume 8.4 fL (7.4-10.4); Platelet Count 111 10x3/uL (130-400); RBC Distribution Width 12.4 % (11.5-14.5); Red Blood Cell (RBC) Count 3.31 mill/uL (4.70-6.10); White Blood Cell (WBC) Count 7.3 10x3/uL (4.8-10.8)
[2022-06-25] MEDS: Propofol 1,000 MG/100 ML VIAL IV PRN ×3 (04:52→22:47)
[2022-06-25 05:13] LABS: ALT (SGPT) 11 U/L (8-55); AST (SGOT) 12 U/L (5-34); Albumin 2.7 g/dL (3.4-4.8); Alkaline Phosphatase 57 U/L (40-110); Anion Gap 13 mmol/L (10-20); BUN (Urea Nitrogen) 24 mg/dL (8.4-25.7); Bilirubin, Total 1.1 mg/dL (0.2-1.2); Calc. Creatinine Clearance 39 mL/min (70-130); Calcium 6.6 mg/dL (7.8-10.44); Carbon Dioxide 18 mmol/L (23-31); Chloride 110 mmol/L (98-107); Estimated GFR 40; Globulin 2.8 g/dL (2.4-3.5); Glucose 111 mg/dL (83-110); Potassium 4.4 mmol/L (3.5-5.1); Protein, Total 5.5 g/dL (5.8-8.1); Sodium 137 mmol/L (136-145)
[2022-06-25 05:26] LABS: Band 45 % (5-11); Lymphocytes 22 % (21-51); MDiff Complete? YES; Macrocytosis SLIGHT = 6-15 cells (100X) (0-5/hpf); Metamyelocyte 6 % (0-0); Monocytes 8 % (0-10); Myelocyte 1 % (0-0); Neutrophil 18 % (42-75); Platelet Morphology Comment Appears Decreased; Reflex for Review?? YES
[2022-06-25] MEDS: Lactated Ringer's 1,000 ML IV SCH ×2 (05:45→17:23)
[2022-06-25] MEDS ORDERED: Calcium Gluc 4.6 MEQ/10 ML (100 MG/ML) SLOW IVP SCH (06:21)
[2022-06-25] MEDS ORDERED: Electrolyte Replacement Protocol 1 EACH FS SCH (06:30)
[2022-06-25] MEDS: Arformoterol 15 MCG/2 ML NEB NEB SCH ×2 (06:35→19:20)
[2022-06-25 06:58] LABS: Phosphorus 3.2 mg/dL (2.3-4.7)
[2022-06-25] MEDS: Doxycycline 100 MG in Sodium Chloride 0.9% 100 ML IVPB SCH ×2 (10:19→20:16)
[2022-06-25] MEDS: Pantoprazole 40 MG VIAL IVP SCH (10:20)
[2022-06-25 10:41] LABS: Actual Bicarbonate (HCO3v) 18 mEq/L (22-28); Base Excess -7.7 mEq/L (-2.0 to +3.0); Calcium, Ionized (venous) 0.95 mmol/L (1.16-1.32); Chloride (VBG) 107 mmol/L (98-106); Hemoglobin (Hb) 10.4 g/dL (12.6-17.4); Potassium (VBG) 4.37 mmol/L (3.70-5.30); pH (venous) 7.29 (7.32-7.43)
[2022-06-25] MEDS: Meropenem 1 GM in Sodium Chloride 0.9% 100 ML IVPB SCH ×2 (12:20→23:25)
[2022-06-25] MEDS: Albumin 25% 25 GM/100 ML BOT IVPB SCH ×3 (12:20→23:28)
[2022-06-25] MEDS: Acetaminophen 325 MG TAB PO PRN (12:21)
[2022-06-25] MEDS: methylPREDNISolone Sod Succ 40 MG VIAL IVP SCH ×2 (17:22→23:27)
[2022-06-25] MEDS ORDERED: methylPREDNISolone Sod Succ 40 MG VIAL IVP SCH (18:00)
[2022-06-26] MEDS: Lactated Ringer's 1,000 ML IV SCH ×3 (02:03→21:41)
[2022-06-26 04:59] LABS: Vancomycin, Trough 17.8 ug/mL
[2022-06-26 05:01] LABS: ALT (SGPT) 9 U/L (8-55); AST (SGOT) 12 U/L (5-34); Albumin 3.1 g/dL (3.4-4.8); Alkaline Phosphatase 43 U/L (40-110); Anion Gap 12 mmol/L (10-20); BUN (Urea Nitrogen) 28 mg/dL (8.4-25.7); Calc. Creatinine Clearance 41 mL/min (70-130); Carbon Dioxide 17 mmol/L (23-31); Chloride 113 mmol/L (98-107); Estimated GFR 40; Globulin 2.4 g/dL (2.4-3.5); Glucose 130 mg/dL (83-110); Protein, Total 5.5 g/dL (5.8-8.1); Sodium 138 mmol/L (136-145)
[2022-06-26 05:18] LABS: Phosphorus 1.7 mg/dL (2.3-4.7)
[2022-06-26] MEDS: Vancomycin HCl 750 MG in Sodium Chloride 0.9% 250 ML 250 ML IVPB SCH (05:21)
[2022-06-26 05:22] LABS: Band 30 % (5-11); Crenated RBC SLIGHT = 1-5 cells (100X) (None Seen); Hemoglobin 9.4 g/dL (14.0-18.0); Lymphocytes 12 % (21-51); MDiff Complete? YES; Macrocytosis SLIGHT = 6-15 cells (100X) (0-5/hpf); Mean Corpuscular HGB CONC 33.7 g/dL (32.0-36.0); Mean Corpuscular Hemoglobin 36.1 pg (27.0-31.0); Mean Platelet Volume 9.6 fL (7.4-10.4); Monocytes 4 % (0-10); Neutrophil 54 % (42-75); Ovalocytes SLIGHT = 2-5 cells (100X) (0-1/hpf); Platelet Count 56 10x3/uL (130-400); Platelet Morphology Comment Appears Decreased; RBC Distribution Width 12.2 % (11.5-14.5); White Blood Cell (WBC) Count 2.2 10x3/uL (4.8-10.8)
[2022-06-26] MEDS: methylPREDNISolone Sod Succ 40 MG VIAL IVP SCH ×2 (05:24→12:50)
[2022-06-26] MEDS: Albumin 25% 25 GM/100 ML BOT IVPB SCH (05:24)
[2022-06-26] MEDS ORDERED: Potassium Phosphate 15 MMOL in Sodium Chloride 0.9% 100 ML IVPB SCH (05:30)
[2022-06-26 06:16] LABS: Actual Bicarbonate (HCO3v) 16 mEq/L (22-28); Base Excess -7.8 mEq/L (-2.0 to +3.0); Calcium, Ionized (venous) 0.94 mmol/L (1.16-1.32); Chloride (VBG) 111 mmol/L (98-106); Hemoglobin (Hb) 9.5 g/dL (12.6-17.4); Potassium (VBG) 4.03 mmol/L (3.70-5.30); Sodium 137.9 mmol/L (133-146)
[2022-06-26] MEDS: Arformoterol 15 MCG/2 ML NEB NEB SCH ×2 (06:22→18:12)
[2022-06-26] MEDS: Propofol 1,000 MG/100 ML VIAL IV PRN ×2 (08:42→18:25)
[2022-06-26] MEDS: Pantoprazole 40 MG VIAL IVP SCH (08:43)
[2022-06-26] MEDS: Doxycycline 100 MG in Sodium Chloride 0.9% 100 ML IVPB SCH ×2 (08:43→21:39)
[2022-06-26] MEDS: Meropenem 1 GM in Sodium Chloride 0.9% 100 ML IVPB SCH (12:50)
[2022-06-26] MEDS: Fentanyl CADD 100 ML IV SCH (14:11)
[2022-06-26] MEDS ORDERED: Hydrocortisone Sod Succ/PF 100 mg/2 ml Vial IVP SCH (18:00)
[2022-06-26] MEDS ORDERED: methylPREDNISolone Sod Succ 40 MG VIAL IVP SCH (18:30)
[2022-06-27] MEDS: Meropenem 1 GM in Sodium Chloride 0.9% 100 ML IVPB SCH ×3 (00:09→23:55)
[2022-06-27] MEDS: methylPREDNISolone Sod Succ 40 MG VIAL IVP SCH ×5 (00:10→23:55)
[2022-06-27] MEDS: Propofol 1,000 MG/100 ML VIAL IV PRN ×4 (01:09→22:13)
[2022-06-27 04:20] LABS: Actual Bicarbonate (HCO3v) 15 mEq/L (22-28); Base Excess -7.4 mEq/L (-2.0 to +3.0); Calcium, Ionized (venous) 0.91 mmol/L (1.16-1.32); Chloride (VBG) 111 mmol/L (98-106); Hemoglobin (Hb) 10.6 g/dL (12.6-17.4); Potassium (VBG) 4.15 mmol/L (3.70-5.30); Sodium 138.2 mmol/L (133-146); pH (venous) 7.43 (7.32-7.43)
[2022-06-27 04:33] LABS: ALT (SGPT) 8 U/L (8-55); AST (SGOT) 11 U/L (5-34); Albumin 2.9 g/dL (3.4-4.8); Alkaline Phosphatase 41 U/L (40-110); Anion Gap 13 mmol/L (10-20); BUN (Urea Nitrogen) 39 mg/dL (8.4-25.7); Bilirubin, Total 0.7 mg/dL (0.2-1.2); Calc. Creatinine Clearance 54 mL/min (70-130); Carbon Dioxide 15 mmol/L (23-31); Chloride 115 mmol/L (98-107); Estimated GFR 54; Globulin 2.3 g/dL (2.4-3.5); Glucose 159 mg/dL (83-110); Potassium 4.2 mmol/L (3.5-5.1); Protein, Total 5.2 g/dL (5.8-8.1); Sodium 139 mmol/L (136-145)
[2022-06-27 04:41] LABS: Calcium 6.7 mg/dL (7.8-10.44)
[2022-06-27 04:44] LABS: Phosphorus 2.4 mg/dL (2.3-4.7)
[2022-06-27] MEDS: Fentanyl CADD 100 ML IV SCH (04:46)
[2022-06-27 05:16] LABS: #Lymphocytes 0.3 thou/uL (1.20-3.40); #Monocytes 0.2 thou/uL (0.11-0.59); #Neutrophils 2.5 thou/uL (1.40-6.50); %Eosinophils 0.1 % (0.0-10.0); %Lymphocytes 10.6 % (21.0-51.0); %Monocytes 7.9 % (0.0-10.0); %Neutrophils 81.4 % (42.0-75.0); Hemoglobin 9.4 g/dL (14.0-18.0); Mean Corpuscular HGB CONC 33.3 g/dL (32.0-36.0); Mean Corpuscular Hemoglobin 35.3 pg (27.0-31.0); Mean Platelet Volume 8.9 fL (7.4-10.4); Platelet Count 58 10x3/uL (130-400); RBC Distribution Width 12.2 % (11.5-14.5); Red Blood Cell (RBC) Count 2.66 mill/uL (4.70-6.10); White Blood Cell (WBC) Count 3.1 10x3/uL (4.8-10.8)
[2022-06-27] MEDS: Arformoterol 15 MCG/2 ML NEB NEB SCH ×2 (06:49→18:23)
[2022-06-27] MEDS ORDERED: Sodium Bicarbonate 150 MEQ in Dextrose 5% in Water 1,000 ML IV SCH (08:30)
[2022-06-27] MEDS: Pantoprazole 40 MG VIAL IVP SCH (08:43)
[2022-06-27] MEDS: Polyethylene Glycol 3350 17 GM Packet PER TUBE SCH (08:43)
[2022-06-27] MEDS: Doxycycline 100 MG in Sodium Chloride 0.9% 100 ML IVPB SCH (08:43)
[2022-06-27] MEDS ORDERED: Furosemide 20 MG/2 ML VIAL SLOW IVP SCH (09:15)
[2022-06-27 09:18] LABS: CMV DNA-PCR Test Negative (Negative)
[2022-06-27] MEDS: Saccharomyces boulardii 250 MG CAP PO SCH ×2 (09:50→22:36)
[2022-06-27] MEDS: Budesonide 0.5 MG/2 ML NEB NEB SCH (18:23)
[2022-06-28] MEDS ORDERED: Fentanyl CADD 100 ML ONE (02:04)
[2022-06-28] MEDS: Propofol 1,000 MG/100 ML VIAL IV PRN ×2 (04:55→12:24)
[2022-06-28 05:19] LABS: Mean Corpuscular HGB CONC 33.2 g/dL (32.0-36.0); Mean Corpuscular Hemoglobin 35.5 pg (27.0-31.0); Mean Platelet Volume 9.5 fL (7.4-10.4); Platelet Count 71 10x3/uL (130-400); RBC Distribution Width 12.4 % (11.5-14.5); Red Blood Cell (RBC) Count 2.54 mill/uL (4.70-6.10); White Blood Cell (WBC) Count 2.1 10x3/uL (4.8-10.8)
[2022-06-28 05:31] LABS: ALT (SGPT) 12 U/L (8-55); AST (SGOT) 14 U/L (5-34); Albumin 2.9 g/dL (3.4-4.8); Alkaline Phosphatase 60 U/L (40-110); Anion Gap 13 mmol/L (10-20); BUN (Urea Nitrogen) 44 mg/dL (8.4-25.7); Bilirubin, Total 0.6 mg/dL (0.2-1.2); Calc. Creatinine Clearance 57 mL/min (70-130); Calcium 6.7 mg/dL (7.8-10.44); Carbon Dioxide 23 mmol/L (23-31); Chloride 111 mmol/L (98-107); Estimated GFR 55; Globulin 2.4 g/dL (2.4-3.5); Glucose 135 mg/dL (83-110); Phosphorus 3.2 mg/dL (2.3-4.7); Potassium 4.5 mmol/L (3.5-5.1); Protein, Total 5.3 g/dL (5.8-8.1); Sodium 142 mmol/L (136-145)
[2022-06-28 05:54] LABS: #Lymphocytes 0.3 thou/uL (1.20-3.40); #Monocytes 0.3 thou/uL (0.11-0.59); #Neutrophils 1.6 thou/uL (1.40-6.50); %Eosinophils 0.6 % (0.0-10.0); %Lymphocytes 13.3 % (21.0-51.0); %Monocytes 12.9 % (0.0-10.0); %Neutrophils 73.2 % (42.0-75.0); Band 3 % (5-11); Lymphocytes 16 % (21-51); MDiff Complete? YES; Macrocytosis SLIGHT = 6-15 cells (100X) (0-5/hpf); Monocytes 8 % (0-10); Neutrophil 73 % (42-75); Platelet Morphology Comment Appears Decreased; Polychromasia SLIGHT = 2-3 cells (100X) (0-2/hpf)
[2022-06-28] MEDS: Arformoterol 15 MCG/2 ML NEB NEB SCH ×2 (06:29→18:32)
[2022-06-28] MEDS: Budesonide 0.5 MG/2 ML NEB NEB SCH ×2 (06:30→18:33)
[2022-06-28 06:56] LABS: Actual Bicarbonate (HCO3v) 18 mEq/L (22-28); Base Excess 0.4 mEq/L (-2.0 to +3.0); Chloride (VBG) 109 mmol/L (98-106); Hemoglobin (Hb) 10.7 g/dL (12.6-17.4); Potassium (VBG) 5.03 mmol/L (3.70-5.30); Sodium 137.9 mmol/L (133-146)
[2022-06-28] MEDS: methylPREDNISolone Sod Succ 40 MG VIAL IVP SCH ×3 (07:15→18:02)
[2022-06-28] MEDS: Lactated Ringer's 1,000 ML IV SCH (07:52)
[2022-06-28] MEDS: Lansoprazole 15 MG/5 ML (BATCHED)UDCUP PER TUBE SCH (08:51)
[2022-06-28] MEDS: Polyethylene Glycol 3350 17 GM Packet PER TUBE SCH (08:51)
[2022-06-28] MEDS: Saccharomyces boulardii 250 MG CAP PO SCH ×2 (08:51→20:22)
[2022-06-28] MEDS ORDERED: Furosemide 40 MG/4 ML VIAL SLOW IVP SCH (09:00)
[2022-06-28 09:45] LABS: EBV VCA IgM <36.0
[2022-06-28 09:46] LABS: Nuclear AG IgG (EBNA) AB 37.4
[2022-06-28] MEDS: Albumin 25% 25 GM/100 ML BOT IVPB SCH ×2 (10:25→18:02)
[2022-06-28] MEDS: Meropenem 1 GM in Sodium Chloride 0.9% 100 ML IVPB SCH (12:24)
[2022-06-28] MEDS ORDERED: Calcium Gluc 4.6 MEQ/10 ML (100 MG/ML) SLOW IVP SCH (15:15)
[2022-06-28] MEDS ORDERED: Ventilator Sedation Protocol 1 EACH FS SCH (15:22)
[2022-06-28] MEDS ORDERED: Midazolam In 0.9 % NaCl/PF 100 ML IVPB SCH (15:30)
[2022-06-28] MEDS: Scopolamine 1.5 mg/72 hour Patch TD SCH (15:35)
[2022-06-28] MEDS: Lorazepam 2 MG/ML VIAL SLOW IVP PRN (15:46)
[2022-06-28] MEDS: Calcium Citrate 950 MG (200MG) TAB PO SCH (20:22)
[2022-06-29] MEDS: methylPREDNISolone Sod Succ 40 MG VIAL IVP SCH ×4 (00:55→21:54)
[2022-06-29] MEDS: Albumin 25% 25 GM/100 ML BOT IVPB SCH ×2 (00:55→05:25)
[2022-06-29] MEDS: Fentanyl CADD 100 ML IV SCH ×2 (01:08→21:21)
[2022-06-29 04:55] LABS: Phosphorus 3.1 mg/dL (2.3-4.7)
[2022-06-29 04:59] LABS: ALT (SGPT) 45 U/L (8-55); AST (SGOT) 54 U/L (5-34); Albumin 3.6 g/dL (3.4-4.8); Alkaline Phosphatase 56 U/L (40-110); Anion Gap 14 mmol/L (10-20); BUN (Urea Nitrogen) 43 mg/dL (8.4-25.7); Bilirubin, Total 0.6 mg/dL (0.2-1.2); Calc. Creatinine Clearance 56 mL/min (70-130); Calcium 7.2 mg/dL (7.8-10.44); Carbon Dioxide 24 mmol/L (23-31); Chloride 107 mmol/L (98-107); Estimated GFR 56; Globulin 2.1 g/dL (2.4-3.5); Glucose 166 mg/dL (83-110); Potassium 4.1 mmol/L (3.5-5.1); Protein, Total 5.7 g/dL (5.8-8.1); Sodium 141 mmol/L (136-145)
[2022-06-29 05:04] LABS: Hemoglobin 8.2 g/dL (14.0-18.0); Mean Corpuscular HGB CONC 32.1 g/dL (32.0-36.0); Mean Corpuscular Hemoglobin 33.8 pg (27.0-31.0); Mean Platelet Volume 9.3 fL (7.4-10.4); Platelet Count 60 10x3/uL (130-400); RBC Distribution Width 12.4 % (11.5-14.5); Red Blood Cell (RBC) Count 2.42 mill/uL (4.70-6.10); White Blood Cell (WBC) Count 1.6 10x3/uL (4.8-10.8)
[2022-06-29 05:19] LABS: Band 4 % (5-11); Lymphocytes 21 % (21-51); MDiff Complete? YES; Macrocytosis MODERATE=16-30 cells (100X) (0-5/hpf); Monocytes 7 % (0-10); Neutrophil 68 % (42-75); Ovalocytes SLIGHT = 2-5 cells (100X) (0-1/hpf); Platelet Morphology Comment Appears Decreased
[2022-06-29 06:28] LABS: Actual Bicarbonate (HCO3v) 24 mEq/L (22-28); Base Excess 0.1 mEq/L (-2.0 to +3.0); Calcium, Ionized (venous) 0.95 mmol/L (1.16-1.32); Chloride (VBG) 104 mmol/L (98-106); Hemoglobin (Hb) 8.5 g/dL (12.6-17.4); Potassium (VBG) 4.15 mmol/L (3.70-5.30); pH (venous) 7.43 (7.32-7.43)
[2022-06-29] MEDS: Arformoterol 15 MCG/2 ML NEB NEB SCH ×2 (06:33→18:55)
[2022-06-29] MEDS: Budesonide 0.5 MG/2 ML NEB NEB SCH ×2 (06:35→18:55)
[2022-06-29 08:55] LABS: Calcium, Ionized (venous) 0.68 mmol/L (1.16-1.32)
[2022-06-29] MEDS: Polyethylene Glycol 3350 17 GM Packet PER TUBE SCH (09:05)
[2022-06-29] MEDS: Calcium Citrate 950 MG (200MG) TAB PO SCH ×2 (09:05→20:23)
[2022-06-29] MEDS: Lansoprazole 15 MG/5 ML (BATCHED)UDCUP PER TUBE SCH (09:05)
[2022-06-29] MEDS: Saccharomyces boulardii 250 MG CAP PO SCH ×2 (09:05→20:23)
[2022-06-29] MEDS ORDERED: Bisacodyl 10 MG SUPP PR PRN (11:09)
[2022-06-29 13:33] LABS: Cell Block/Cytology Request REQUEST RECEIVED
[2022-06-29 17:10] LABS: Fungus Stain Final report (.)
[2022-06-30] MEDS: Lorazepam 2 MG/ML VIAL SLOW IVP PRN ×2 (01:44→12:40)
[2022-06-30] MEDS: methylPREDNISolone Sod Succ 40 MG VIAL IVP SCH ×3 (05:10→21:20)
[2022-06-30 05:20] LABS: #Lymphocytes 0.3 thou/uL (1.20-3.40); #Monocytes 0.2 thou/uL (0.11-0.59); #Neutrophils 1.1 thou/uL (1.40-6.50); %Basophils 0.3 % (0.0-1.0); %Eosinophils 0.3 % (0.0-10.0); %Lymphocytes 18.4 % (21.0-51.0); %Monocytes 13.9 % (0.0-10.0); %Neutrophils 67.1 % (42.0-75.0); Hemoglobin 8.6 g/dL (14.0-18.0); Mean Corpuscular HGB CONC 34.2 g/dL (32.0-36.0); Mean Corpuscular Hemoglobin 36.1 pg (27.0-31.0); Mean Platelet Volume 9.4 fL (7.4-10.4); Platelet Count 74 10x3/uL (130-400); RBC Distribution Width 12.4 % (11.5-14.5); Red Blood Cell (RBC) Count 2.37 mill/uL (4.70-6.10); White Blood Cell (WBC) Count 1.7 10x3/uL (4.8-10.8)
[2022-06-30 05:39] LABS: Phosphorus 3.1 mg/dL (2.3-4.7)
[2022-06-30 05:49] LABS: Anion Gap 13 mmol/L (10-20); BUN (Urea Nitrogen) 46 mg/dL (8.4-25.7); Calc. Creatinine Clearance 61 mL/min (70-130); Calcium 7.3 mg/dL (7.8-10.44); Carbon Dioxide 24 mmol/L (23-31); Chloride 107 mmol/L (98-107); Estimated GFR 62; Glucose 158 mg/dL (83-110); Potassium 4.9 mmol/L (3.5-5.1); Sodium 139 mmol/L (136-145)
[2022-06-30] MEDS: Budesonide 0.5 MG/2 ML NEB NEB SCH ×2 (07:46→19:27)
[2022-06-30] MEDS: Arformoterol 15 MCG/2 ML NEB NEB SCH ×2 (07:46→19:27)
[2022-06-30] MEDS: Polyethylene Glycol 3350 17 GM Packet PER TUBE SCH (08:11)
[2022-06-30] MEDS: Lansoprazole 15 MG/5 ML (BATCHED)UDCUP PER TUBE SCH (08:17)
[2022-06-30] MEDS: Calcium Citrate 950 MG (200MG) TAB PO SCH ×2 (08:17→20:55)
[2022-06-30] MEDS: Saccharomyces boulardii 250 MG CAP PO SCH ×2 (08:17→20:56)
[2022-06-30] MEDS: Fentanyl CADD 100 ML IV SCH (23:37)
[2022-07-01 04:36] LABS: Hemoglobin 9.9 g/dL (14.0-18.0); RBC Distribution Width 12.1 % (11.5-14.5); White Blood Cell (WBC) Count 1.7 10x3/uL (4.8-10.8)
[2022-07-01 04:51] LABS: Anion Gap 12 mmol/L (10-20); BUN (Urea Nitrogen) 45 mg/dL (8.4-25.7); Calc. Creatinine Clearance 69 mL/min (70-130); Calcium 7.4 mg/dL (7.8-10.44); Carbon Dioxide 22 mmol/L (23-31); Chloride 105 mmol/L (98-107); Estimated GFR 72; Glucose 188 mg/dL (83-110); Potassium 5.2 mmol/L (3.5-5.1); Sodium 134 mmol/L (136-145)
[2022-07-01 04:56] LABS: Mean Corpuscular HGB CONC 34.7 g/dL (32.0-36.0); Mean Corpuscular Hemoglobin 36.5 pg (27.0-31.0); Mean Platelet Volume 9.7 fL (7.4-10.4); Platelet Count 83 10x3/uL (130-400)
[2022-07-01] MEDS: methylPREDNISolone Sod Succ 40 MG VIAL IVP SCH ×2 (05:25→20:12)
[2022-07-01] MEDS: Arformoterol 15 MCG/2 ML NEB NEB SCH ×2 (07:28→18:49)
[2022-07-01] MEDS: Budesonide 0.5 MG/2 ML NEB NEB SCH ×2 (07:28→18:50)
[2022-07-01] MEDS: Saccharomyces boulardii 250 MG CAP PO SCH ×2 (09:10→20:12)
[2022-07-01] MEDS: Calcium Citrate 950 MG (200MG) TAB PO SCH ×2 (09:10→20:12)
[2022-07-01] MEDS: Polyethylene Glycol 3350 17 GM Packet PER TUBE SCH (09:10)
[2022-07-01] MEDS: Lansoprazole 15 MG/5 ML (BATCHED)UDCUP PER TUBE SCH (09:10)
[2022-07-01] MEDS ORDERED: Furosemide 20 MG/2 ML VIAL SLOW IVP SCH (11:00)
[2022-07-01] MEDS ORDERED: Ipratropium/Albuterol 3 ML NEB ONE (11:01)
[2022-07-01] MEDS ORDERED: DC Sedation Protocol FS ONE (11:02)
[2022-07-01] MEDS ORDERED: Budesonide 0.5 MG/2 ML NEB ONE (12:39)
[2022-07-01] MEDS: Scopolamine 1.5 mg/72 hour Patch TD SCH (16:58)
[2022-07-01] MEDS ORDERED: Scopolamine 1.5 mg/72 hour Patch TD SCH (17:00)
[2022-07-01] MEDS: Ondansetron PF 4 MG/2 ML Vial IVP PRN (22:59)
[2022-07-02 04:36] LABS: #Lymphocytes 0.6 thou/uL (1.20-3.40); #Monocytes 0.6 thou/uL (0.11-0.59); #Neutrophils 6.7 thou/uL (1.40-6.50); %Lymphocytes 7.6 % (21.0-51.0); %Monocytes 7.8 % (0.0-10.0); %Neutrophils 84.6 % (42.0-75.0); Hemoglobin 10.1 g/dL (14.0-18.0); Mean Corpuscular HGB CONC 33.8 g/dL (32.0-36.0); Mean Corpuscular Hemoglobin 35.4 pg (27.0-31.0); Mean Platelet Volume 8.9 fL (7.4-10.4); Platelet Count 125 10x3/uL (130-400); RBC Distribution Width 12.5 % (11.5-14.5); Red Blood Cell (RBC) Count 2.86 mill/uL (4.70-6.10); White Blood Cell (WBC) Count 7.9 10x3/uL (4.8-10.8)
[2022-07-02 04:56] LABS: Anion Gap 13 mmol/L (10-20); BUN (Urea Nitrogen) 43 mg/dL (8.4-25.7); Calc. Creatinine Clearance 63 mL/min (70-130); Calcium 8.2 mg/dL (7.8-10.44); Carbon Dioxide 23 mmol/L (23-31); Chloride 107 mmol/L (98-107); Estimated GFR 64; Glucose 84 mg/dL (83-110); Potassium 5.3 mmol/L (3.5-5.1); Sodium 138 mmol/L (136-145)
[2022-07-02] MEDS: Ondansetron PF 4 MG/2 ML Vial IVP PRN ×2 (05:03→11:56)
[2022-07-02] MEDS ORDERED: Furosemide 20 MG/2 ML VIAL SLOW IVP SCH (06:00)
[2022-07-02] MEDS: Budesonide 0.5 MG/2 ML NEB NEB SCH ×2 (07:50→18:12)
[2022-07-02] MEDS: Arformoterol 15 MCG/2 ML NEB NEB SCH ×2 (07:50→18:12)
[2022-07-02] MEDS: Lansoprazole 15 MG/5 ML (BATCHED)UDCUP PER TUBE SCH (08:48)
[2022-07-02] MEDS: Polyethylene Glycol 3350 17 GM Packet PER TUBE SCH (08:49)
[2022-07-02] MEDS: Calcium Citrate 950 MG (200MG) TAB PO SCH ×2 (08:51→22:05)
[2022-07-02] MEDS: Saccharomyces boulardii 250 MG CAP PO SCH ×2 (08:51→22:05)
[2022-07-02] MEDS: methylPREDNISolone Sod Succ 40 MG VIAL IVP SCH ×2 (09:02→21:31)
[2022-07-02] MEDS ORDERED: Milk Of Magnesia 30 ML UDCUP PO PRN (20:50)
[2022-07-02] MEDS ORDERED: Ondansetron PF 4 MG/2 ML Vial SLOW IVP PRN (20:51)
[2022-07-02] MEDS ORDERED: Promethazine HCl 12.5 MG in Sodium Chloride 0.9% 50 ML IVPB PRN (21:14)
[2022-07-02] MEDS: Pantoprazole 40 MG VIAL IVP SCH (21:31)
[2022-07-03] MEDS ORDERED: Ondansetron PF 4 MG/2 ML Vial IVP SCH (01:00)
[2022-07-03 05:36] LABS: #Monocytes 0.5 thou/uL (0.11-0.59); #Neutrophils 7.9 thou/uL (1.40-6.50); %Basophils 0.1 % (0.0-1.0); %Eosinophils 0.1 % (0.0-10.0); %Lymphocytes 10.3 % (21.0-51.0); %Monocytes 5.7 % (0.0-10.0); %Neutrophils 83.8 % (42.0-75.0); Hemoglobin 11.3 g/dL (14.0-18.0); Mean Corpuscular HGB CONC 34.5 g/dL (32.0-36.0); Mean Platelet Volume 8.5 fL (7.4-10.4); Platelet Count 153 10x3/uL (130-400); RBC Distribution Width 12.7 % (11.5-14.5); Red Blood Cell (RBC) Count 3.13 mill/uL (4.70-6.10); White Blood Cell (WBC) Count 9.4 10x3/uL (4.8-10.8)
[2022-07-03 05:54] LABS: Anion Gap 13 mmol/L (10-20); BUN (Urea Nitrogen) 44 mg/dL (8.4-25.7); Calc. Creatinine Clearance 58 mL/min (70-130); Calcium 8.6 mg/dL (7.8-10.44); Carbon Dioxide 23 mmol/L (23-31); Chloride 102 mmol/L (98-107); Estimated GFR 62; Glucose 78 mg/dL (83-110); Potassium 5.2 mmol/L (3.5-5.1); Sodium 133 mmol/L (136-145)
[2022-07-03] MEDS: Arformoterol 15 MCG/2 ML NEB NEB SCH ×2 (07:14→18:27)
[2022-07-03] MEDS: Budesonide 0.5 MG/2 ML NEB NEB SCH ×2 (07:15→18:27)
[2022-07-03] MEDS: Saccharomyces boulardii 250 MG CAP PO SCH ×2 (08:48→20:55)
[2022-07-03] MEDS: methylPREDNISolone Sod Succ 40 MG VIAL IVP SCH ×2 (08:48→20:55)
[2022-07-03] MEDS: Pantoprazole 40 MG VIAL IVP SCH ×2 (08:48→20:55)
[2022-07-03] MEDS: Calcium Citrate 950 MG (200MG) TAB PO SCH ×2 (08:49→20:55)
[2022-07-03] MEDS: Polyethylene Glycol 3350 17 GM Packet PER TUBE SCH (08:49)
[2022-07-03 14:14] LABS: Final Culture No virus isolated. (.)
[2022-07-04 04:41] LABS: #Lymphocytes 0.7 thou/uL (1.20-3.40); #Monocytes 0.4 thou/uL (0.11-0.59); #Neutrophils 6.9 thou/uL (1.40-6.50); %Basophils 0.1 % (0.0-1.0); %Eosinophils 0.1 % (0.0-10.0); %Lymphocytes 8.9 % (21.0-51.0); %Monocytes 5.1 % (0.0-10.0); %Neutrophils 85.8 % (42.0-75.0); Hemoglobin 10.5 g/dL (14.0-18.0); Mean Corpuscular Hemoglobin 35.5 pg (27.0-31.0); Mean Platelet Volume 8.6 fL (7.4-10.4); Platelet Count 139 10x3/uL (130-400); RBC Distribution Width 12.6 % (11.5-14.5); Red Blood Cell (RBC) Count 2.96 mill/uL (4.70-6.10); White Blood Cell (WBC) Count 8.1 10x3/uL (4.8-10.8)
[2022-07-04 04:45] LABS: Anion Gap 12 mmol/L (10-20); BUN (Urea Nitrogen) 41 mg/dL (8.4-25.7); Calc. Creatinine Clearance 54 mL/min (70-130); Calcium 8.8 mg/dL (7.8-10.44); Carbon Dioxide 23 mmol/L (23-31); Chloride 104 mmol/L (98-107); Estimated GFR 56; Glucose 96 mg/dL (83-110); Potassium 4.9 mmol/L (3.5-5.1); Sodium 134 mmol/L (136-145)
[2022-07-04] MEDS: Arformoterol 15 MCG/2 ML NEB NEB SCH ×2 (07:34→18:51)
[2022-07-04] MEDS: Budesonide 0.5 MG/2 ML NEB NEB SCH ×2 (07:36→18:53)
[2022-07-04] MEDS: Polyethylene Glycol 3350 17 GM Packet PER TUBE SCH ×2 (08:32→08:57)
[2022-07-04] MEDS: methylPREDNISolone Sod Succ 40 MG VIAL IVP SCH ×2 (08:32→20:50)
[2022-07-04] MEDS: Calcium Citrate 950 MG (200MG) TAB PO SCH ×2 (08:32→20:50)
[2022-07-04] MEDS: Pantoprazole 40 MG VIAL IVP SCH ×2 (08:32→20:50)
[2022-07-04] MEDS: Saccharomyces boulardii 250 MG CAP PO SCH ×2 (08:32→20:51)
[2022-07-04 14:09] LABS: Bacteria/HPF None Seen HPF (None Seen); Bilirubin Negative (Negative); Blood, Urine Negative (Negative); CAUTI Indications for Culture Dysuria,urgency,freq; Clarity Clear (Clear); Glucose, Urine (Dipstick) Normal (Negative); Ketone, Urine Negative (Negative); Leukocyte Negative Leu/uL (Negative); Nitrite Negative (Negative); Protein, Urine (Dipstick) Negative (Neg-Trace); RBC/HPF 0-3 HPF (0-3); Specific Gravity, Urine 1.012 (1.002-1.036); Squamous Epithelial None Seen HPF (0-3); Urobilinogen Normal mg/dL (Less than 2); WBC/HPF 0-3 HPF (0-3); pH, Urine 6.5 (5.0-9.0)
[2022-07-04 14:23] LABS: Urine Culture Reflex No No
[2022-07-05 04:52] LABS: #Lymphocytes 0.5 thou/uL (1.20-3.40); #Monocytes 0.3 thou/uL (0.11-0.59); #Neutrophils 6.2 thou/uL (1.40-6.50); %Eosinophils 0.1 % (0.0-10.0); %Lymphocytes 7.2 % (21.0-51.0); %Monocytes 4.3 % (0.0-10.0); %Neutrophils 88.4 % (42.0-75.0); Hemoglobin 9.8 g/dL (14.0-18.0); Mean Corpuscular HGB CONC 34.4 g/dL (32.0-36.0); Mean Corpuscular Hemoglobin 35.8 pg (27.0-31.0); Mean Platelet Volume 8.8 fL (7.4-10.4); Platelet Count 117 10x3/uL (130-400); RBC Distribution Width 12.7 % (11.5-14.5); Red Blood Cell (RBC) Count 2.74 mill/uL (4.70-6.10); White Blood Cell (WBC) Count 7.1 10x3/uL (4.8-10.8)
[2022-07-05 05:09] LABS: Anion Gap 11 mmol/L (10-20); BUN (Urea Nitrogen) 36 mg/dL (8.4-25.7); Calc. Creatinine Clearance 55 mL/min (70-130); Calcium 8.6 mg/dL (7.8-10.44); Carbon Dioxide 21 mmol/L (23-31); Chloride 106 mmol/L (98-107); Estimated GFR 57; Glucose 107 mg/dL (83-110); Potassium 4.2 mmol/L (3.5-5.1); Sodium 134 mmol/L (136-145)
[2022-07-05 06:39] VITALS: BMI 26.0
[2022-07-05] MEDS: Arformoterol 15 MCG/2 ML NEB NEB SCH (06:44)
[2022-07-05] MEDS: Budesonide 0.5 MG/2 ML NEB NEB SCH (06:45)
[2022-07-05] MEDS ORDERED: Tamsulosin HCl 0.4 MG CAP PO SCH (09:00)
[2022-07-05] MEDS ORDERED: Sulfameth/Trimethoprim DS 800-160mg TAB PO SCH ×2 (09:00)
[2022-07-05] MEDS ORDERED: predniSONE 20 MG TAB PO SCH (09:00)
[2022-07-05] MEDS: Polyethylene Glycol 3350 17 GM Packet PER TUBE SCH ×2 (09:00→09:33)
[2022-07-05] MEDS: Calcium Citrate 950 MG (200MG) TAB PO SCH (09:32)
[2022-07-05] MEDS: Pantoprazole 40 MG VIAL IVP SCH (09:33)
[2022-07-05] MEDS: Saccharomyces boulardii 250 MG CAP PO SCH (09:33)
[2022-07-05 12:37] VITALS: TEMP 97.8
[2022-07-05 13:30] VITALS: BP 163/92
[2022-07-06] MEDS ORDERED: predniSONE 20 MG TAB PO SCH (08:00)
[2022-07-07 13:42] LABS: Final Culture No virus isolated. (.)
== END 2022-07-05 12:30 | DRG 870 ==
LOC: ERS 06:31 → CCU 12:13
PROVIDERS: ADMIT Internal Medicine; ATTEND Hospitalist
PROC: 0BC38ZZ Extirpation of Matter from Right Main Bronchus, Via Natural or Artificial Opening Endoscopic (ICD-10-PCS; principal; 2022-06-24)
PROC: 0BC78ZZ Extirpation of Matter from Left Main Bronchus, Via Natural or Artificial Opening Endoscopic (ICD-10-PCS; 2022-06-24)
PROC: 06HY33Z Insertion of Infusion Device into Lower Vein, Percutaneous Approach (ICD-10-PCS; 2022-06-24)
PROC: 5A1955Z Respiratory Ventilation, Greater than 96 Consecutive Hours (ICD-10-PCS; 2022-06-24)
PROC: 0BH17EZ Insertion of Endotracheal Airway into Trachea, Via Natural or Artificial Opening (ICD-10-PCS; 2022-06-24)
PROC: 4A033R1 Measurement of Arterial Saturation, Peripheral, Percutaneous Approach (ICD-10-PCS; 2022-06-24)
PROC: 3E033XZ Introduction of Vasopressor into Peripheral Vein, Percutaneous Approach (ICD-10-PCS; 2022-06-24)
PROC: 0D9670Z Drainage of Stomach with Drainage Device, Via Natural or Artificial Opening (ICD-10-PCS; 2022-06-24)
PROC: 3E03329 Introduction of Other Anti-infective into Peripheral Vein, Percutaneous Approach (ICD-10-PCS; 2022-06-24)
PROC: 30233J1 Transfusion of Nonautologous Serum Albumin into Peripheral Vein, Percutaneous Approach (ICD-10-PCS; 2022-06-25)
PROC: 0T9B70Z Drainage of Bladder with Drainage Device, Via Natural or Artificial Opening (ICD-10-PCS; 2022-06-26)
DX: A41.59 Other Gram-negative sepsis (principal); G93.41 Metabolic encephalopathy; J96.21 Acute and chronic respiratory failure with hypoxia; R65.21 Severe sepsis with septic shock; J15.6 Pneumonia due to other Gram-negative bacteria; Z94.81 Bone marrow transplant status; D61.818 Other pancytopenia; C90.01 Multiple myeloma in remission; J44.0 Chronic obstructive pulmonary disease with (acute) lower respiratory infection; J90 Pleural effusion, not elsewhere classified; D84.9 Immunodeficiency, unspecified; N17.9 Acute kidney failure, unspecified; E87.20 Acidosis, unspecified; M48.50XA Collapsed vertebra, not elsewhere classified, site unspecified, initial encounter for fracture; I10 Essential (primary) hypertension; C61 Malignant neoplasm of prostate; M10.9 Gout, unspecified; E78.5 Hyperlipidemia, unspecified; E03.9 Hypothyroidism, unspecified; E83.39 Other disorders of phosphorus metabolism; E83.51 Hypocalcemia; E87.5 Hyperkalemia; N40.1 Benign prostatic hyperplasia with lower urinary tract symptoms; R33.8 Other retention of urine; Z20.822 Contact with and (suspected) exposure to COVID-19; Z79.899 Other long term (current) drug therapy; Z98.890 Other specified postprocedural states; Z87.891 Personal history of nicotine dependence
CPT/HCPCS: 31500; 36415; 36416; 51702; 71045; 80048; 80053; 80202; 81001; 81003; 81015; 82306; 82533; 82805; 83605; 83880; 84100; 84145; 84443; 84484; 85025; 85060; 86664; 86665; 86762; 87040; 87070; 87077; 87086; 87102; 87116; 87186; 87205; 87206; 87207; 87252; 87255; 87449; 87497; 87633; 87798; 87899; 88112; 88305; 88312; 89051; 93005; 93306; 94002; 94003; 96361; 96365; 96367; 96375; C9113; J0456; J0612; J0696; J1940; J1956; J2060; J2185; J2250; J2272; J2405; J2550; J2704; J2920; J3010; J3370; J3370-JW; J3490; J7050; J7070; J7120; J7512; J7620; J7626; P9047

== ENCOUNTER 2022-08-25 20:03 | Inpatient (IN) | payer MEDICARE ==
[2022-08-25] MEDS ORDERED: Acetaminophen 500 MG TAB ONE (20:30)
[2022-08-25 20:42] LABS: #Monocytes 0.7 thou/uL (0.11-0.59); #Neutrophils 7.7 thou/uL (1.40-6.50); %Basophils 0.3 % (0.0-1.0); %Eosinophils 0.1 % (0.0-10.0); %Lymphocytes 9.6 % (21.0-51.0); %Monocytes 7.1 % (0.0-10.0); %Neutrophils 82.7 % (42.0-75.0); Hemoglobin 12.3 g/dL (14.0-18.0); Mean Corpuscular HGB CONC 33.9 g/dL (32.0-36.0); Mean Corpuscular Hemoglobin 33.3 pg (27.0-31.0); Mean Corpuscular Volume 98.4 fl (78.0-98.0); Mean Platelet Volume 9.7 fL (7.4-10.4); Platelet Count 162 10x3/uL (130-400); RBC Distribution Width 13.2 % (11.5-14.5); Red Blood Cell (RBC) Count 3.69 mill/uL (4.70-6.10); White Blood Cell (WBC) Count 9.4 10x3/uL (4.8-10.8)
[2022-08-25 21:06] LABS: ALT (SGPT) 9 U/L (8-55); AST (SGOT) 15 U/L (5-34); Albumin 3.7 g/dL (3.4-4.8); Alkaline Phosphatase 111 U/L (40-110); Anion Gap 12 mmol/L (10-20); BUN (Urea Nitrogen) 17 mg/dL (8.4-25.7); Bilirubin, Total 0.7 mg/dL (0.2-1.2); Calc. Creatinine Clearance 0 mL/min (70-130); Carbon Dioxide 21 mmol/L (23-31); Chloride 104 mmol/L (98-107); Estimated GFR 79; Globulin 3.2 g/dL (2.4-3.5); Glucose 101 mg/dL (83-110); Potassium 4.1 mmol/L (3.5-5.1); Protein, Total 6.9 g/dL (5.8-8.1); Sodium 133 mmol/L (136-145)
[2022-08-25] MEDS ORDERED: Cefepime 2 GM VIAL ONE (21:16)
[2022-08-25 21:35] LABS: SARS-CoV-2 NAA Rapid Test Not Detected (NotDetected)
[2022-08-25] MEDS ORDERED: Vancomycin 1 GM/200 ML (FROZEN) BAG ONE (22:06)
[2022-08-25] MEDS ORDERED: Ondansetron PF 4 MG/2 ML Vial IVP PRN (22:08)
[2022-08-25] MEDS ORDERED: Acetaminophen 325 MG TAB PO PRN (22:08)
[2022-08-25] MEDS ORDERED: Ipratropium/Albuterol 3 ML NEB EZPAP PRN (22:12)
[2022-08-25 23:47] VITALS: BMI 26.2
[2022-08-26 06:05] LABS: Bilirubin Negative (Negative); Blood, Urine 1+ (Negative); Clarity Clear (Clear); Glucose, Urine (Dipstick) Normal (Negative); Ketone, Urine Negative (Negative); Leukocyte 500 Leu/uL (Negative); Nitrite 2+ (Negative); Protein, Urine (Dipstick) 20 mg/dL (Neg-Trace); Specific Gravity, Urine 1.013 (1.002-1.036); Squamous Epithelial 0-3 HPF (0-3); Urobilinogen Normal mg/dL (Less than 2)
[2022-08-26 06:16] LABS: Bacteria/HPF 3+ HPF (None Seen)
[2022-08-26] MEDS ORDERED: Azithromycin 500 MG in Sodium Chloride 0.9% 250 ML 250 ML IVPB SCH (08:15)
[2022-08-26 08:21] LABS: #Monocytes 0.5 thou/uL (0.11-0.59); #Neutrophils 5.5 thou/uL (1.40-6.50); %Basophils 0.5 % (0.0-1.0); %Lymphocytes 7.5 % (21.0-51.0); %Monocytes 7.1 % (0.0-10.0); %Neutrophils 84.4 % (42.0-75.0); Hemoglobin 10.7 g/dL (14.0-18.0); Mean Corpuscular HGB CONC 32.6 g/dL (32.0-36.0); Mean Corpuscular Hemoglobin 33.3 pg (27.0-31.0); Mean Platelet Volume 9.7 fL (7.4-10.4); Platelet Count 136 10x3/uL (130-400); RBC Distribution Width 13.2 % (11.5-14.5); Red Blood Cell (RBC) Count 3.21 mill/uL (4.70-6.10); White Blood Cell (WBC) Count 6.5 10x3/uL (4.8-10.8)
[2022-08-26 08:28] LABS: Anion Gap 11 mmol/L (10-20); BUN (Urea Nitrogen) 14 mg/dL (8.4-25.7); Calc. Creatinine Clearance 74 mL/min (70-130); Calcium 8.3 mg/dL (7.8-10.44); Carbon Dioxide 19 mmol/L (23-31); Chloride 107 mmol/L (98-107); Estimated GFR 88; Glucose 87 mg/dL (83-110); Potassium 3.9 mmol/L (3.5-5.1); Sodium 133 mmol/L (136-145)
[2022-08-26 08:31] LABS: Mean Corpuscular Volume 102.2 fl (78.0-98.0)
[2022-08-26] MEDS ORDERED: Cefepime 2 GM in Sodium Chloride 0.9% 100 ML IVPB SCH (09:00)
[2022-08-26] MEDS ORDERED: Doxycycline 100 MG in Sodium Chloride 0.9% 100 ML IVPB SCH (09:00)
[2022-08-26] MEDS ORDERED: Iopamidol-370 76% 500 ML MDV (1 ML CHARGE) ONE (10:40)
[2022-08-26] MEDS: Vancomycin HCl 750 MG in Sodium Chloride 0.9% 250 ML 250 ML IVPB SCH ×2 (13:24→21:55)
[2022-08-26] MEDS: Mometasone 200 MCG/Formoterol 5 MCG 120 PUFF INHALER INH SCH (18:32)
[2022-08-26] MEDS: Ipratropium Bromide 2.5 ml Neb NEB SCH (18:32)
[2022-08-26] MEDS: Cefepime 1 GM in Sodium Chloride 0.9% 100 ML IVPB SCH (20:00)
[2022-08-26] MEDS: Tamsulosin HCl 0.4 MG CAP PO SCH (20:00)
[2022-08-26] MEDS: Rosuvastatin 5 MG TAB PO SCH (20:04)
[2022-08-27] MEDS: Ipratropium Bromide 2.5 ml Neb NEB SCH ×4 (00:32→18:21)
[2022-08-27] MEDS: Levothyroxine Sodium 50 MCG TAB PO SCH (05:33)
[2022-08-27 07:07] LABS: #Monocytes 0.8 thou/uL (0.11-0.59); #Neutrophils 3.6 thou/uL (1.40-6.50); %Basophils 0.6 % (0.0-1.0); %Eosinophils 0.8 % (0.0-10.0); %Lymphocytes 13.9 % (21.0-51.0); %Monocytes 14.7 % (0.0-10.0); %Neutrophils 69.8 % (42.0-75.0); Hemoglobin 10.2 g/dL (14.0-18.0); Mean Corpuscular HGB CONC 33.3 g/dL (32.0-36.0); Mean Corpuscular Hemoglobin 33.1 pg (27.0-31.0); Mean Corpuscular Volume 99.4 fl (78.0-98.0); Mean Platelet Volume 10.1 fL (7.4-10.4); Platelet Count 131 10x3/uL (130-400); RBC Distribution Width 13.1 % (11.5-14.5); Red Blood Cell (RBC) Count 3.08 mill/uL (4.70-6.10); White Blood Cell (WBC) Count 5.1 10x3/uL (4.8-10.8)
[2022-08-27] MEDS: Mometasone 200 MCG/Formoterol 5 MCG 120 PUFF INHALER INH SCH ×2 (07:33→18:21)
[2022-08-27 07:36] LABS: Phosphorus 1.9 mg/dL (2.3-4.7)
[2022-08-27 07:39] LABS: ALT (SGPT) 12 U/L (8-55); AST (SGOT) 25 U/L (5-34); Alkaline Phosphatase 101 U/L (40-110); Anion Gap 11 mmol/L (10-20); BUN (Urea Nitrogen) 14 mg/dL (8.4-25.7); Bilirubin, Total 0.4 mg/dL (0.2-1.2); Calc. Creatinine Clearance 82 mL/min (70-130); Carbon Dioxide 19 mmol/L (23-31); Chloride 110 mmol/L (98-107); Estimated GFR 90; Globulin 2.7 g/dL (2.4-3.5); Glucose 85 mg/dL (83-110); Magnesium 1.8 mg/dL (1.6-2.6); Potassium 3.7 mmol/L (3.5-5.1); Protein, Total 5.7 g/dL (5.8-8.1); Sodium 136 mmol/L (136-145)
[2022-08-27] MEDS ORDERED: Azithromycin 500 MG in Sodium Chloride 0.9% 250 ML 250 ML IVPB SCH (08:00)
[2022-08-27] MEDS: Tamsulosin HCl 0.4 MG CAP PO SCH ×2 (08:51→20:37)
[2022-08-27] MEDS: Cefepime 1 GM in Sodium Chloride 0.9% 100 ML IVPB SCH (08:51)
[2022-08-27 09:33] LABS: Vancomycin, Trough 8.5 ug/mL
[2022-08-27] MEDS ORDERED: VANCOMYCIN 1.25 GM/250 ML BAG 1.25 GM in Premix Bag 1 BAG IVPB SCH (10:00)
[2022-08-27] MEDS ORDERED: Electrolyte Replacement Protocol 1 EACH FS ONE (13:13)
[2022-08-27] MEDS ORDERED: Magnesium 2 GM/50 ML(in water) 2 GM in Premix Bag 1 BAG IVPB SCH (13:15)
[2022-08-27] MEDS ORDERED: Electrolyte Replacement Protocol FS PRN (13:30)
[2022-08-27] MEDS: PHOS-NAK 1 PKT PACK PO SCH ×2 (14:56→17:06)
[2022-08-27] MEDS: Rosuvastatin 5 MG TAB PO SCH (20:36)
[2022-08-27] MEDS: Cefepime 2 GM in Sodium Chloride 0.9% 100 ML IVPB SCH (20:37)
[2022-08-28] MEDS: Ipratropium Bromide 2.5 ml Neb NEB SCH ×2 (00:13→07:56)
[2022-08-28] MEDS: Levothyroxine Sodium 50 MCG TAB PO SCH (05:25)
[2022-08-28 06:58] LABS: #Eosinphils 0.2 thou/uL (0.0-0.7); #Monocytes 1.1 thou/uL (0.11-0.59); #Neutrophils 3.5 thou/uL (1.40-6.50); %Basophils 0.5 % (0.0-1.0); %Eosinophils 3.2 % (0.0-10.0); %Lymphocytes 15.6 % (21.0-51.0); %Monocytes 18.6 % (0.0-10.0); %Neutrophils 61.7 % (42.0-75.0); Hemoglobin 10.2 g/dL (14.0-18.0); Mean Corpuscular HGB CONC 33.1 g/dL (32.0-36.0); Mean Corpuscular Hemoglobin 33.2 pg (27.0-31.0); Mean Corpuscular Volume 100.3 fl (78.0-98.0); Mean Platelet Volume 9.6 fL (7.4-10.4); Platelet Count 145 10x3/uL (130-400); RBC Distribution Width 12.8 % (11.5-14.5); Red Blood Cell (RBC) Count 3.07 mill/uL (4.70-6.10); White Blood Cell (WBC) Count 5.6 10x3/uL (4.8-10.8)
[2022-08-28 07:26] LABS: ALT (SGPT) 19 U/L (8-55); AST (SGOT) 29 U/L (5-34); Alkaline Phosphatase 143 U/L (40-110); Anion Gap 8 mmol/L (10-20); BUN (Urea Nitrogen) 13 mg/dL (8.4-25.7); Bilirubin, Total 0.2 mg/dL (0.2-1.2); Calc. Creatinine Clearance 84 mL/min (70-130); Calcium 7.9 mg/dL (7.8-10.44); Carbon Dioxide 23 mmol/L (23-31); Chloride 110 mmol/L (98-107); Estimated GFR 91; Globulin 2.3 g/dL (2.4-3.5); Glucose 88 mg/dL (83-110); Magnesium 1.6 mg/dL (1.6-2.6); Potassium 3.7 mmol/L (3.5-5.1); Protein, Total 5.3 g/dL (5.8-8.1); Sodium 137 mmol/L (136-145)
[2022-08-28 07:28] LABS: Phosphorus 2.4 mg/dL (2.3-4.7)
[2022-08-28] MEDS: Mometasone 200 MCG/Formoterol 5 MCG 120 PUFF INHALER INH SCH (07:58)
[2022-08-28] MEDS ORDERED: Magnesium 2 GM/50 ML(in water) 2 GM in Premix Bag 1 BAG IVPB SCH (08:00)
[2022-08-28 08:13] VITALS: BP 127/71; TEMP 97.5
[2022-08-28] MEDS: Tamsulosin HCl 0.4 MG CAP PO SCH (08:32)
[2022-08-28] MEDS: Cefepime 2 GM in Sodium Chloride 0.9% 100 ML IVPB SCH (08:33)
[2022-08-28] MEDS ORDERED: Sulfameth/Trimethoprim DS 800-160mg TAB PO SCH ×2 (10:45→21:00)
[2022-08-28] MEDS ORDERED: valACYclovir 500 MG TAB PO SCH (21:00)
[2022-08-29] MEDS ORDERED: Loratadine 10 MG TAB PO SCH (09:00)
== END 2022-08-28 12:43 | disposition home or self-care (01) | DRG 872 ==
LOC: ERS 20:03 → T4-B 22:03
PROVIDERS: ADMIT Internal Medicine; ATTEND Internal Medicine
DX: A41.9 Sepsis, unspecified organism (principal); C90.01 Multiple myeloma in remission; Z94.81 Bone marrow transplant status; Z94.84 Stem cells transplant status; E78.5 Hyperlipidemia, unspecified; M10.9 Gout, unspecified; I10 Essential (primary) hypertension; Z20.822 Contact with and (suspected) exposure to COVID-19; J43.9 Emphysema, unspecified; N40.0 Benign prostatic hyperplasia without lower urinary tract symptoms; E03.9 Hypothyroidism, unspecified; I71.40 Abdominal aortic aneurysm, without rupture, unspecified; Z85.46 Personal history of malignant neoplasm of prostate; Z85.118 Personal history of other malignant neoplasm of bronchus and lung; Z85.830 Personal history of malignant neoplasm of bone; Z98.890 Other specified postprocedural states; Z87.891 Personal history of nicotine dependence; Z79.899 Other long term (current) drug therapy
CPT/HCPCS: 36415; 71045; 74177; 80048; 80053; 80202; 81003; 81015; 83605; 83735; 84100; 84145; 85025; 87040; 87070; 87077; 87081; 87186; 87205; 93005; 94640; 96365; 96367; 96368; J0456; J0692; J1650; J1956; J3370; J3370-JW; J3475; J3490; J7050; Q9967

== ENCOUNTER 2022-12-04 13:15 | Outpatient (CLI) | payer MEDICARE | END 2022-12-04 13:16 | disposition home or self-care (01) | LOC: RAD 13:15 | PROVIDERS: ATTEND Internal Medicine | DX: A31.0 Pulmonary mycobacterial infection (principal); R07.9 Chest pain, unspecified | CPT/HCPCS: 36415; 71046; 80053; 85025 ==

== ENCOUNTER 2023-02-21 12:35 | Emergency (ER) | payer MEDICARE ==
[2023-02-21 13:33] LABS: #Eosinphils 0.2 thou/uL (0.0-0.7); #Monocytes 0.7 thou/uL (0.11-0.59); #Neutrophils 5.2 thou/uL (1.40-6.50); %Basophils 0.3 % (0.0-1.0); %Eosinophils 2.3 % (0.0-10.0); %Lymphocytes 13.2 % (21.0-51.0); %Monocytes 10.4 % (0.0-10.0); %Neutrophils 73.2 % (42.0-75.0); Hematocrit 37.1 % (42.0-52.0); Mean Corpuscular HGB CONC 32.3 g/dL (32.0-36.0); Mean Corpuscular Hemoglobin 29.3 pg (27.0-31.0); Mean Corpuscular Volume 90.7 fl (78.0-98.0); Mean Platelet Volume 10.2 fL (7.4-10.4); Platelet Count 141 10x3/uL (130-400); RBC Distribution Width 14.9 % (11.5-14.5); Red Blood Cell (RBC) Count 4.09 mill/uL (4.70-6.10)
[2023-02-21 14:02] LABS: ALT (SGPT) 13 U/L (8-55); AST (SGOT) 15 U/L (5-34); Albumin 3.4 g/dL (3.4-4.8); Alkaline Phosphatase 71 U/L (40-110); Anion Gap 11 mmol/L (10-20); BUN (Urea Nitrogen) 15 mg/dL (8.4-25.7); Bilirubin, Total 0.6 mg/dL (0.2-1.2); Calc. Creatinine Clearance 0 mL/min (70-130); Calcium 8.1 mg/dL (7.8-10.44); Carbon Dioxide 24 mmol/L (23-31); Chloride 108 mmol/L (98-107); Estimated GFR 79; Globulin 3.4 g/dL (2.4-3.5); Glucose 82 mg/dL (83-110); Potassium 3.7 mmol/L (3.5-5.1); Protein, Total 6.8 g/dL (5.8-8.1); Sodium 139 mmol/L (136-145)
[2023-02-21 14:07] LABS: SARS-CoV-2 NAA Rapid Test Not Detected (NotDetected)
== END 2023-02-21 15:35 | disposition home or self-care (01) ==
LOC: ERS 12:35
DX: J18.9 Pneumonia, unspecified organism (principal); J44.9 Chronic obstructive pulmonary disease, unspecified; I10 Essential (primary) hypertension; E78.5 Hyperlipidemia, unspecified; Z20.822 Contact with and (suspected) exposure to COVID-19; Z87.891 Personal history of nicotine dependence
CPT/HCPCS: 0240U; 71046; 80053; 85025; 93005; 99284

== ENCOUNTER 2023-05-04 18:36 | Inpatient (IN) | payer MEDICARE ==
[~2023-05-04 18:36] MED LIST changes: -Iopamidol 370 76% 100 ML VIAL ONE; +Iopamidol-370 76% 500 ML MDV (1 ML CHARGE) ONE
[2023-05-04] MEDS ORDERED: Ipratropium/Albuterol 3 ML NEB ONE ×2 (19:01→19:03)
[2023-05-04] MEDS ORDERED: methylPREDNISolone Sod Succ/PF 125 MG/2 ML VIAL ONE (19:02)
[2023-05-04 19:26] LABS: Hematocrit 27.8 % (42.0-52.0); Hemoglobin 9.3 g/dL (14.0-18.0); Manual Diff?? YES; Mean Corpuscular HGB CONC 33.5 g/dL (32.0-36.0); Mean Corpuscular Volume 95.5 fl (78.0-98.0); Mean Platelet Volume 10.5 fL (7.4-10.4); RBC Distribution Width 18.2 % (11.5-14.5); Red Blood Cell (RBC) Count 2.91 mill/uL (4.70-6.10); White Blood Cell (WBC) Count 3.3 10x3/uL (4.8-10.8)
[2023-05-04 19:28] LABS: Delete Auto Diff?? YES; Platelet Count 81 10x3/uL (130-400)
[2023-05-04 19:34] LABS: Actual Bicarbonate (HCO3v) 21.2 mEq/L (22-28); Base Excess -4.4 mEq/L (-2.0 to +3.0); Calcium, Ionized (venous) 1.11 mmol/L (1.16-1.32); Chloride (VBG) 106 mmol/L (98-106); Potassium (VBG) 4.06 mmol/L (3.70-5.30); Sodium 134 mmol/L (133-146); pH (venous) 7.333 (7.32-7.43)
[2023-05-04 19:49] LABS: Anisocytosis SLIGHT = 6-15 cells HPF (0-5); Band 32 % (5-11); CellaVision Operator ID LAB.CLH1; Eosinophils 4 % (0-10); Hypochromia SLIGHT = 6-15 cells HPF (0-5); Large Platelets 5.9 % (0-5); Lymphocytes 12 % (21-51); Macrocytosis SLIGHT = 6-15 cells HPF (0-5); Monocytes 11 % (0-10); Neutrophil 38 % (42-75); Platelet Adequacy Comment Platelets Decreased; Polychromasia SLIGHT = 2-3 cells HPF (0-2); Reactive Lymphocytes 3 % (0-10); Total Cell Count 102
[2023-05-04 19:50] LABS: Anion Gap 10 mmol/L (10-20); BUN (Urea Nitrogen) 20 mg/dL (8.4-25.7); Calc. Creatinine Clearance 0 mL/min (70-130); Calcium 8.2 mg/dL (7.8-10.44); Carbon Dioxide 21 mmol/L (23-31); Chloride 107 mmol/L (98-107); Estimated GFR 73; Glucose 99 mg/dL (83-110); Sodium 134 mmol/L (136-145)
[2023-05-04 19:57] LABS: Troponin I Less than 0.010 ng/mL (< 0.028)
[2023-05-04] MEDS ORDERED: LevoFLOXacin 750 mg/D5W 150 ml Premix Bag ONE (22:11)
[2023-05-04] MEDS ORDERED: Sodium Chloride 0.9% 100 ML ONE (22:11)
[2023-05-04] MEDS ORDERED: Cefepime 2 GM VIAL ONE (22:11)
[2023-05-05] MEDS ORDERED: Senokot S 8.6-50 MG TAB PO PRN (00:12)
[2023-05-05] MEDS ORDERED: Calcium Carbonate 500 MG ChewTAB PO PRN (00:12)
[2023-05-05] MEDS ORDERED: Acetaminophen 325 MG TAB PO PRN (00:12)
[2023-05-05] MEDS: Vancomycin (BATCH) 1.5 GM in Premix 1 BAG IVPB SCH (00:30)
[2023-05-05 02:16] VITALS: BMI 26.6
[2023-05-05] MEDS: Ipratropium/Albuterol 3 ML NEB NEB SCH (04:22)
[2023-05-05] MEDS ORDERED: Electrolyte Replacement Protocol 1 EACH FS SCH (04:30)
[2023-05-05] MEDS: Sodium Chloride 0.9% 500 ML IV SCH (04:37)
[2023-05-05] MEDS: Sodium Chloride 0.9% 1,000 ML IV SCH (04:37)
[2023-05-05 04:59] LABS: Hematocrit 27.8 % (42.0-52.0); Manual Diff?? YES; Mean Corpuscular HGB CONC 32.4 g/dL (32.0-36.0); Mean Corpuscular Hemoglobin 32.1 pg (27.0-31.0); Mean Platelet Volume 10.7 fL (7.4-10.4); RBC Distribution Width 18.4 % (11.5-14.5); White Blood Cell (WBC) Count 2.7 10x3/uL (4.8-10.8)
[2023-05-05 05:03] LABS: Delete Auto Diff?? YES; Platelet Count 81 10x3/uL (130-400)
[2023-05-05 05:16] LABS: ALT (SGPT) 7 U/L (8-55); AST (SGOT) 8 U/L (5-34); Albumin 3.1 g/dL (3.4-4.8); Alkaline Phosphatase 72 U/L (40-110); Anion Gap 12 mmol/L (10-20); BUN (Urea Nitrogen) 20 mg/dL (8.4-25.7); Bilirubin, Total 0.3 mg/dL (0.2-1.2); Calc. Creatinine Clearance 49 mL/min (70-130); Calcium 7.5 mg/dL (7.8-10.44); Carbon Dioxide 18 mmol/L (23-31); Chloride 109 mmol/L (98-107); Estimated GFR 55; Globulin 2.5 g/dL (2.4-3.5); Glucose 227 mg/dL (83-110); Magnesium 1.4 mg/dL (1.6-2.6); Potassium 3.6 mmol/L (3.5-5.1); Protein, Total 5.6 g/dL (5.8-8.1); Sodium 135 mmol/L (136-145)
[2023-05-05 05:33] LABS: Band 32 % (5-11); CellaVision Operator ID LAB.CLH1; Elliptocytes SLIGHT = 2-5 cells HPF (0-1); Hypochromia SLIGHT = 6-15 cells HPF (0-5); Lymphocytes 8 % (21-51); Neutrophil 58 % (42-75); Platelet Adequacy Comment Platelets Decreased; Polychromasia SLIGHT = 2-3 cells HPF (0-2); Reactive Lymphocytes 1 % (0-10); Total Cell Count 101
[2023-05-05 05:56] LABS: Mean Corpuscular Volume 99.3 fl (78.0-98.0)
[2023-05-05 06:08] LABS: Legionella Urinary Ag Negative (Negative); Strep pneumo Urine Ag NEGATIVE (NEGATIVE)
[2023-05-05] MEDS: Mometasone 200 MCG/Formoterol 5 MCG 120 PUFF INHALER INH SCH (07:51)
[2023-05-05] MEDS: Lactated Ringer's 500 ML IV SCH (08:28)
[2023-05-05] MEDS: Sulfameth/Trimethoprim DS 800-160mg TAB PO SCH (08:29)
[2023-05-05] MEDS: Famotidine 20 MG TAB PO SCH (08:30)
[2023-05-05] MEDS: methylPREDNISolone Sod Succ 40 MG VIAL IVP SCH (08:30)
[2023-05-05] MEDS: Azithromycin 250 MG TAB PO SCH (08:30)
[2023-05-05] MEDS: Meropenem 1 GM in Sodium Chloride 0.9% 100 ML IVPB SCH ×2 (08:39→17:30)
[2023-05-05] MEDS ORDERED: Cefepime 1 GM in Sodium Chloride 0.9% 100 ML IVPB SCH (09:00)
[2023-05-05 09:53] LABS: Influenza A by NAA Not Detected (NotDetected); Influenza B by NAA Not Detected (NotDetected); RSV by NAA Not Detected (NotDetected); SARS-CoV-2 NAA Rapid Test Not Detected (NotDetected)
[2023-05-05] MEDS: Magnesium Sulfate In Water 4 GM in Premix 1 BAG IVPB SCH (10:15)
[2023-05-05] MEDS ORDERED: Meropenem 1 GM in Sodium Chloride 0.9% 100 ML IVPB SCH (14:00)
[2023-05-05] MEDS: valACYclovir 500 MG TAB PO SCH (20:47)
[2023-05-05] MEDS: Rosuvastatin 5 MG TAB PO SCH (20:47)
[2023-05-06] MEDS: Levothyroxine Sodium 50 MCG TAB PO SCH (05:13)
[2023-05-06 06:01] LABS: #Monocytes 0.3 thou/uL (0.11-0.59); #Neutrophils 4.6 thou/uL (1.40-6.50); %Basophils 0.4 % (0.0-1.0); %Lymphocytes 6.4 % (21.0-51.0); %Monocytes 5.3 % (0.0-10.0); %Neutrophils 86.8 % (42.0-75.0); Hematocrit 28.7 % (42.0-52.0); Hemoglobin 9.2 g/dL (14.0-18.0); Mean Corpuscular HGB CONC 32.1 g/dL (32.0-36.0); Mean Corpuscular Hemoglobin 31.5 pg (27.0-31.0); Mean Corpuscular Volume 98.3 fl (78.0-98.0); Mean Platelet Volume 10.6 fL (7.4-10.4); Platelet Count 114 10x3/uL (130-400); Red Blood Cell (RBC) Count 2.92 mill/uL (4.70-6.10); White Blood Cell (WBC) Count 5.3 10x3/uL (4.8-10.8)
[2023-05-06 06:29] LABS: Anion Gap 10 mmol/L (10-20); BUN (Urea Nitrogen) 22 mg/dL (8.4-25.7); Calc. Creatinine Clearance 63 mL/min (70-130); Calcium 7.8 mg/dL (7.8-10.44); Carbon Dioxide 19 mmol/L (23-31); Chloride 113 mmol/L (98-107); Estimated GFR 74; Glucose 138 mg/dL (83-110); Magnesium 2.5 mg/dL (1.6-2.6); Potassium 3.9 mmol/L (3.5-5.1); Sodium 138 mmol/L (136-145)
[2023-05-06] MEDS: methylPREDNISolone Sod Succ 40 MG VIAL IVP SCH (08:03)
[2023-05-07 06:54] LABS: #Monocytes 0.3 thou/uL (0.11-0.59); #Neutrophils 3.7 thou/uL (1.40-6.50); %Basophils 0.2 % (0.0-1.0); %Lymphocytes 9.3 % (21.0-51.0); %Monocytes 7.1 % (0.0-10.0); %Neutrophils 82.1 % (42.0-75.0); Hematocrit 29.3 % (42.0-52.0); Hemoglobin 9.4 g/dL (14.0-18.0); Mean Corpuscular HGB CONC 32.1 g/dL (32.0-36.0); Mean Corpuscular Hemoglobin 32.2 pg (27.0-31.0); Mean Corpuscular Volume 100.3 fl (78.0-98.0); Mean Platelet Volume 10.7 fL (7.4-10.4); Platelet Count 102 10x3/uL (130-400); RBC Distribution Width 19.3 % (11.5-14.5); Red Blood Cell (RBC) Count 2.92 mill/uL (4.70-6.10); White Blood Cell (WBC) Count 4.5 10x3/uL (4.8-10.8)
[2023-05-07 07:19] LABS: Anion Gap 11 mmol/L (10-20); BUN (Urea Nitrogen) 28 mg/dL (8.4-25.7); Calc. Creatinine Clearance 81 mL/min (70-130); Calcium 7.1 mg/dL (7.8-10.44); Carbon Dioxide 20 mmol/L (23-31); Chloride 112 mmol/L (98-107); Estimated GFR 90; Glucose 119 mg/dL (83-110); Magnesium 2.2 mg/dL (1.6-2.6); Potassium 4.7 mmol/L (3.5-5.1); Sodium 138 mmol/L (136-145)
[2023-05-07] MEDS: predniSONE 20 MG TAB PO SCH (11:59)
[2023-05-07] MEDS: Meropenem 1 GM in Sodium Chloride 0.9% 100 ML IVPB SCH (12:01)
[2023-05-07] MEDS ORDERED: Senokot S 8.6-50 MG TAB PO PRN (14:00)
[2023-05-07] MEDS ORDERED: Electrolyte Replacement Protocol FS PRN (14:00)
[2023-05-07] MEDS ORDERED: Ipratropium/Albuterol 3 ML NEB NEB PRN (15:15)
[2023-05-07] MEDS ORDERED: Glucagon 1 MG/ML KIT IM PRN (15:17)
[2023-05-07] MEDS ORDERED: Dextrose 50% Abboject 50 ML SYRINGE SLOW IVP PRN (15:17)
[2023-05-07] MEDS ORDERED: HumaLOG 300 UNITS/3 ML VIAL SC PRN (15:17)
[2023-05-07] MEDS ORDERED: Dextrose 5% in Water 1,000 ML IV PRN (15:17)
[2023-05-07] MEDS ORDERED: hydrALAZINE 20 MG/ML VIAL SLOW IVP PRN (15:18)
[2023-05-07] MEDS: Ipratropium/Albuterol 3 ML NEB NEB SCH (20:22)
[2023-05-08 07:27] LABS: #Monocytes 0.5 thou/uL (0.11-0.59); %Lymphocytes 15.4 % (21.0-51.0); %Monocytes 12.5 % (0.0-10.0); %Neutrophils 70.9 % (42.0-75.0); Hematocrit 29.6 % (42.0-52.0); Hemoglobin 9.6 g/dL (14.0-18.0); Mean Corpuscular HGB CONC 32.4 g/dL (32.0-36.0); Mean Corpuscular Hemoglobin 32.1 pg (27.0-31.0); Mean Platelet Volume 10.5 fL (7.4-10.4); Platelet Count 109 10x3/uL (130-400); RBC Distribution Width 19.1 % (11.5-14.5); Red Blood Cell (RBC) Count 2.99 mill/uL (4.70-6.10); White Blood Cell (WBC) Count 4.2 10x3/uL (4.8-10.8)
[2023-05-08 07:45] LABS: Anion Gap 10 mmol/L (10-20); BUN (Urea Nitrogen) 29 mg/dL (8.4-25.7); Calc. Creatinine Clearance 82 mL/min (70-130); Calcium 7.4 mg/dL (7.8-10.44); Carbon Dioxide 23 mmol/L (23-31); Chloride 111 mmol/L (98-107); Estimated GFR 90; Glucose 106 mg/dL (83-110); Magnesium 2.1 mg/dL (1.6-2.6); Potassium 4.1 mmol/L (3.5-5.1); Sodium 140 mmol/L (136-145)
[2023-05-08] MEDS: LevoFLOXacin 750 MG TAB PO SCH (16:44)
[2023-05-08 21:12] LABS: Mycoplasma pneumoniae IgG AB 433 U/mL (0-99); Mycoplasma pneumoniae IgM AB Less than 770 U/mL (0-769)
[2023-05-08 23:12] LABS: L.pneumophilia Abs <0.91 OD ratio (0.00-0.90)
[2023-05-09] MEDS: LevoFLOXacin 750 MG TAB PO SCH (05:48)
[2023-05-09] MEDS ORDERED: Lidocaine 1% PF 5 ML VIAL ONE (13:28)
[2023-05-09] MEDS ORDERED: Sodium Bicarbonate 2.5 MEQ/5 ML SDV ONE (13:28)
[2023-05-09] MEDS ORDERED: Sodium Chloride 0.9% 500 ML ONE (13:29)
[2023-05-09] MEDS: Azithromycin 250 MG TAB PO SCH (17:08)
[2023-05-10] MEDS ORDERED: Azithromycin 250 MG TAB PO SCH (09:00)
[2023-05-10] MEDS: Azithromycin 250 MG TAB PO SCH (09:06)
[2023-05-10 16:36] VITALS: BP 155/80; TEMP 97.7
== END 2023-05-10 17:15 | disposition home or self-care (01) | DRG 178 ==
LOC: ERS 18:36 → MSONC 22:30 → OBSVTOIN 05-06 13:50
PROVIDERS: ADMIT Student in an Organized Health Care Education/Training Program; ATTEND Internal Medicine
PROC: 02HV33Z Insertion of Infusion Device into Superior Vena Cava, Percutaneous Approach (ICD-10-PCS; principal; 2023-05-09)
PROC: B548ZZA Ultrasonography of Superior Vena Cava, Guidance (ICD-10-PCS; 2023-05-09)
PROC: B5181ZA Fluoroscopy of Superior Vena Cava using Low Osmolar Contrast, Guidance (ICD-10-PCS; 2023-05-09)
DX: J15.1 Pneumonia due to Pseudomonas (principal); J44.0 Chronic obstructive pulmonary disease with (acute) lower respiratory infection; J44.1 Chronic obstructive pulmonary disease with (acute) exacerbation; N17.9 Acute kidney failure, unspecified; E78.5 Hyperlipidemia, unspecified; I10 Essential (primary) hypertension; D64.9 Anemia, unspecified; D69.6 Thrombocytopenia, unspecified; E83.42 Hypomagnesemia; N40.0 Benign prostatic hyperplasia without lower urinary tract symptoms; I95.9 Hypotension, unspecified; E03.9 Hypothyroidism, unspecified; M10.9 Gout, unspecified; Z79.899 Other long term (current) drug therapy; Z85.79 Personal history of other malignant neoplasms of lymphoid, hematopoietic and related tissues; Z79.890 Hormone replacement therapy; Z98.890 Other specified postprocedural states; Z82.49 Family history of ischemic heart disease and other diseases of the circulatory system; Z11.52 Encounter for screening for COVID-19
CPT/HCPCS: 0241U; 36415; 36416; 36569; 71045; 71275; 80048; 80053; 82805; 83605; 83735; 83880; 84484; 85025; 86713; 87040; 87070; 87077; 87081; 87186; 87205; 87449; 87633; 87899; 93005; 93010; 94640; 94664; 96374; 96375; 96376; C1751; G0378; J0692; J1956; J2185; J2920; J2930; J3370; J3475; J3490; J7030; J7050; J7120; J7512; J7620; Q9967

== ENCOUNTER 2023-09-12 14:43 | Inpatient (IN) | payer MEDICARE ==
[2023-09-12 15:30] LABS: %Basophils 2.1 % (0.0-1.0); %Eosinophils 7.6 % (0.0-10.0); %Lymphocytes 20.3 % (21.0-51.0); %Monocytes 11.4 % (0.0-10.0); %Neutrophils 57.5 % (42.0-75.0); Hematocrit 32.2 % (42.0-52.0); Hemoglobin 10.5 g/dL (14.0-18.0); Mean Corpuscular HGB CONC 32.6 g/dL (32.0-36.0); Mean Corpuscular Volume 98.2 fL (78.0-98.0); RBC Distribution Width 15.5 % (11.5-14.5); Red Blood Cell (RBC) Count 3.28 mill/uL (4.70-6.10)
[2023-09-12] MEDS ORDERED: Magnesium 2 GM/50 ML BAG (IN WATER) ONE (15:30)
[2023-09-12 15:34] LABS: ALT (SGPT) 13 U/L (8-55); AST (SGOT) 19 U/L (5-34); Albumin 2.8 g/dL (3.4-4.8); Alkaline Phosphatase 103 U/L (40-110); Anion Gap 15 mmol/L (10-20); BUN (Urea Nitrogen) 19 mg/dL (8.4-25.7); Bilirubin, Total 0.4 mg/dL (0.2-1.2); Calc. Creatinine Clearance 0 mL/min (70-130); Calcium 8.4 mg/dL (7.8-10.44); Carbon Dioxide 16 mmol/L (23-31); Chloride 109 mmol/L (98-107); Estimated GFR 65; Globulin 3.4 g/dL (2.4-3.5); Glucose 91 mg/dL (83-110); Protein, Total 6.2 g/dL (5.8-8.1); Sodium 136 mmol/L (136-145)
[2023-09-12 15:38] LABS: Troponin I Less than 0.010 ng/mL (< 0.028)
[2023-09-12] MEDS ORDERED: Ipratropium/Albuterol 3 ML NEB ONE (15:46)
[2023-09-12 15:50] LABS: Platelet Adequacy Comment Appears Adequate; Platelet Clumps SLIGHT
[2023-09-12] MEDS ORDERED: Acetaminophen 325 MG TAB PO PRN ×2 (18:30→18:39)
[2023-09-12] MEDS ORDERED: Ondansetron PF 4 MG/2 ML Vial IVP PRN ×2 (18:30→18:39)
[2023-09-12] MEDS ORDERED: Ondansetron ODT 4 MG TAB SL PRN (18:30)
[2023-09-12] MEDS: Meropenem 1 GM in Sodium Chloride 0.9% 100 ML IVPB SCH (18:36)
[2023-09-12] MEDS ORDERED: Senokot S 8.6-50 MG TAB PO PRN (18:39)
[2023-09-12] MEDS ORDERED: Ondansetron ODT 4 MG TAB PO PRN (18:39)
[2023-09-12] MEDS ORDERED: Acetaminophen 650 MG Suppository PR PRN (18:39)
[2023-09-12] MEDS ORDERED: Calcium Carbonate 500 MG ChewTAB PO PRN (18:39)
[2023-09-12] MEDS ORDERED: GUAIFENESIN DM SF 5 ML UDCUP PO PRN (18:41)
[2023-09-12 18:53] VITALS: BMI 25.3
[2023-09-12] MEDS: Ipratropium/Albuterol 3 ML NEB NEB SCH (18:55)
[2023-09-12] MEDS: Mometasone 200 MCG/Formoterol 5 MCG 120 PUFF INHALER INH SCH (19:02)
[2023-09-12] MEDS: Vancomycin (BATCH) 2 GM in Premix 1 BAG IVPB SCH (20:27)
[2023-09-12] MEDS: Rosuvastatin 5 MG TAB PO SCH (20:29)
[2023-09-12] MEDS: Famotidine 20 MG TAB PO SCH (20:29)
[2023-09-12] MEDS ORDERED: IPRATROPIUM INH SCH (21:00)
[2023-09-12] MEDS ORDERED: Famotidine 20 MG TAB PO SCH (21:00)
[2023-09-12] MEDS: methylPREDNISolone Sod Succ 40 MG VIAL IVP SCH (21:36)
[2023-09-13] MEDS: Meropenem 1 GM in Sodium Chloride 0.9% 100 ML IVPB SCH ×2 (01:33→12:03)
[2023-09-13] MEDS: Levothyroxine Sodium 50 MCG TAB PO SCH (05:31)
[2023-09-13 07:01] LABS: ALT (SGPT) 10 U/L (8-55); AST (SGOT) 12 U/L (5-34); Albumin 2.5 g/dL (3.4-4.8); Anion Gap 11 mmol/L (10-20); BUN (Urea Nitrogen) 16 mg/dL (8.4-25.7); Calc. Creatinine Clearance 68 mL/min (70-130); Calcium 7.4 mg/dL (7.8-10.44); Carbon Dioxide 19 mmol/L (23-31); Chloride 108 mmol/L (98-107); Estimated GFR 86; Globulin 2.4 g/dL (2.4-3.5); Glucose 158 mg/dL (83-110); Potassium 4.7 mmol/L (3.5-5.1); Protein, Total 4.9 g/dL (5.8-8.1); Sodium 133 mmol/L (136-145)
[2023-09-13] MEDS: Mometasone 200 MCG/Formoterol 5 MCG 120 PUFF INHALER INH SCH (07:04)
[2023-09-13 07:08] LABS: Vancomycin, Random 18.9 ug/mL (See Comment)
[2023-09-13 07:40] LABS: Alkaline Phosphatase 96 U/L (40-110); Bilirubin, Total 0.3 mg/dL (0.2-1.2)
[2023-09-13 07:44] LABS: Hematocrit 28.8 % (42.0-52.0); Hemoglobin 9.4 g/dL (14.0-18.0); Mean Corpuscular HGB CONC 32.6 g/dL (32.0-36.0); Mean Corpuscular Hemoglobin 31.2 pg (27.0-31.0); Mean Corpuscular Volume 95.7 fL (78.0-98.0); Platelet Count 103 10x3/uL (130-400); RBC Distribution Width 15.5 % (11.5-14.5); Red Blood Cell (RBC) Count 3.01 mill/uL (4.70-6.10)
[2023-09-13 09:09] LABS: Anisocytosis SLIGHT = 6-15 cells HPF (0-5); Band 9 % (5-11); Burr Cells SLIGHT = 2-5 cells HPF (0-1); Lymphocytes 11 % (21-51); Monocytes 2 % (0-10); Neutrophil 72 % (42-75); Nucleated RBC (Manual Ct) 1 % (0); Platelet Adequacy Comment Platelets Decreased; Polychromasia SLIGHT = 2-3 cells HPF (0-2); Reactive Lymphocytes 3 % (0-10); Schistocytes SLIGHT = 2-5 cells HPF (0-1)
[2023-09-13] MEDS: Enoxaparin 40 MG (0.4 mL) SYRINGE SC SCH (09:29)
[2023-09-13 13:56] LABS: Legionella Urinary Ag Negative (Negative); Strep pneumo Urine Ag NEGATIVE (NEGATIVE)
[2023-09-13] MEDS: Lenalidomide [Revlimid] 10 MG Capsule PO SCH (14:50)
[2023-09-13] MEDS: Vancomycin (BATCH) 1.5 GM in Premix 1 BAG IVPB SCH (16:12)
[2023-09-13] MEDS: Vancomycin (BATCH) 1.5 GM/300 ML BAG ONE (17:25)
[2023-09-13] MEDS ORDERED: Vancomycin (BATCH) 1.25 GM in Premix 1 BAG IVPB SCH (20:00)
[2023-09-13] MEDS ORDERED: valACYclovir 500 MG TAB PO SCH (21:00)
[2023-09-13] MEDS: Famotidine 20 MG TAB PO SCH (21:15)
[2023-09-13] MEDS: Tamsulosin HCl 0.4 MG CAP PO SCH (21:15)
[2023-09-14] MEDS: Levothyroxine Sodium 25 MCG TAB PO SCH (05:34)
[2023-09-14] MEDS ORDERED: Non-Formulary Item 1 EACH (Tiotropium Bromide 4 GM Inhaler) PO SCH (09:00)
[2023-09-14] MEDS: Lenalidomide [Revlimid] 10 MG Capsule PO SCH (09:21)
[2023-09-14] MEDS: valACYclovir 500 MG TAB PO SCH (09:21)
[2023-09-14] MEDS: Azithromycin 250 MG TAB PO SCH (13:16)
[2023-09-14] MEDS: Sulfameth/Trimethoprim DS 800-160mg TAB PO SCH (19:54)
[2023-09-15] MEDS: LevoFLOXacin 500 MG TAB PO SCH (05:04)
[2023-09-15] MEDS: predniSONE 20 MG TAB PO SCH (09:32)
[2023-09-15 10:55] LABS: #Basophils Less than 0.03 10x3/uL (0.0-0.2); #Eosinphils Less than 0.03 10x3/uL (0.0-0.7); %Basophils 0.2 % (0.0-1.0); %Eosinophils 0.2 % (0.0-10.0); %Lymphocytes 13.8 % (21.0-51.0); %Monocytes 13.3 % (0.0-10.0); Hematocrit 26.4 % (42.0-52.0); Hemoglobin 8.8 g/dL (14.0-18.0); Mean Corpuscular HGB CONC 33.3 g/dL (32.0-36.0); Mean Corpuscular Hemoglobin 32.6 pg (27.0-31.0); Mean Corpuscular Volume 97.8 fL (78.0-98.0); Platelet Count 132 10x3/uL (130-400)
[2023-09-15 11:17] LABS: Anion Gap 9 mmol/L (10-20); BUN (Urea Nitrogen) 22 mg/dL (8.4-25.7); Carbon Dioxide 22 mmol/L (23-31); Chloride 114 mmol/L (98-107); Potassium 3.7 mmol/L (3.5-5.1); Sodium 141 mmol/L (136-145)
[2023-09-15 11:18] LABS: ALT (SGPT) 17 U/L (8-55); AST (SGOT) 19 U/L (5-34); Albumin 2.5 g/dL (3.4-4.8); Alkaline Phosphatase 66 U/L (40-110); Bilirubin, Total 0.2 mg/dL (0.2-1.2); Calc. Creatinine Clearance 78 mL/min (70-130); Calcium 8.1 mg/dL (7.8-10.44); Estimated GFR 90; Globulin 2.6 g/dL (2.4-3.5); Glucose 109 mg/dL (83-110); Protein, Total 5.1 g/dL (5.8-8.1)
[2023-09-15] MEDS ORDERED: TOBRAMYCIN 300 MG/5 ML AMP (INHALATION) IH SCH (15:00)
[2023-09-15] MEDS: TOBRAMYCIN 300 MG/5 ML AMP (INHALATION) IH SCH ×2 (15:21→19:26)
[2023-09-15] MEDS: Albuterol 2.5 MG (3 mL) NEB ONE (15:21)
[2023-09-16 07:26] VITALS: BP 118/69; TEMP 96.9
== END 2023-09-16 10:46 | disposition home or self-care (01) | DRG 189 ==
LOC: ERS 14:43 → T4-B 17:16 → OBSVTOIN 09-13 13:15
PROVIDERS: ADMIT Family Medicine; ATTEND Internal Medicine
DX: J96.21 Acute and chronic respiratory failure with hypoxia (principal); Z94.84 Stem cells transplant status; D61.818 Other pancytopenia; C90.01 Multiple myeloma in remission; J44.1 Chronic obstructive pulmonary disease with (acute) exacerbation; Z16.24 Resistance to multiple antibiotics; C90.00 Multiple myeloma not having achieved remission; C79.51 Secondary malignant neoplasm of bone; E03.9 Hypothyroidism, unspecified; E78.5 Hyperlipidemia, unspecified; N40.0 Benign prostatic hyperplasia without lower urinary tract symptoms; D64.9 Anemia, unspecified; J47.9 Bronchiectasis, uncomplicated; I10 Essential (primary) hypertension; B96.5 Pseudomonas (aeruginosa) (mallei) (pseudomallei) as the cause of diseases classified elsewhere; Z92.3 Personal history of irradiation; Z85.46 Personal history of malignant neoplasm of prostate; Z79.890 Hormone replacement therapy; Z79.899 Other long term (current) drug therapy; Z79.52 Long term (current) use of systemic steroids; Z87.891 Personal history of nicotine dependence; Z99.81 Dependence on supplemental oxygen; Z79.2 Long term (current) use of antibiotics
CPT/HCPCS: 36415; 36416; 71045; 71250; 80053; 80202; 83880; 83883; 84155; 84165; 84484; 85025; 87040; 87070; 87077; 87081; 87186; 87205; 87449; 87633; 87899; 93005; 94640; 96365; 96366; 96367; 96372; 96375; 96376; G0378; J1650; J2185; J2920; J3370; J3475; J3490; J7512; J7611; J7620

== ENCOUNTER 2024-11-18 09:56 | Outpatient (CLI) | payer MEDICARE | END 2024-11-18 09:57 | disposition home or self-care (01) | LOC: RAD 09:56 | PROVIDERS: ATTEND Internal Medicine Critical Care Medicine | DX: R06.00 Dyspnea, unspecified (principal); J43.2 Centrilobular emphysema | CPT/HCPCS: 71046 ==